=== PATIENT | female | born 1930 | race Caucasian/White ===

== ENCOUNTER 2019-07-28 11:21 | Inpatient (IN) | payer OTHER ==
--- NOTE | 2019-07-28 12:46 | PDOC ---
History of Present Illness - General Chief Complaint: Shortness of Breath Stated Complaint: Shortness of Breath Time Seen by Provider: 07/28/19 12:00 - History of Present Illness Initial Comments: 07/28/19 12:36 89 yo F PMH HTN, HLD, MOE multiple decades ago, depression, presenting with fevers and SOB. Symptoms began approximately 4 days ago with fevers/chills, unproductive cough, SOB with exertion but not at rest, generalized malaise, and profuse sweating. Patient lives with her daughter who has also had the same issues, albeit less intense. Patient has eaten only soups and drank fluids since onset of symptoms. 3 days ago, patient contacted their primary care doctor , who sent them amoxicillin 500mg TID. However, the patient reports not taking this consistently 2/2 thinking it was making her feel worse. Specifically denies recent travel, CP, abd pain, constipation/diarrhea, urinary changes, dark stools, or rectal bleeding. Endorses sick contact, unproductive cough, SOB with exertion, malaise. Past History - Past Medical History Allergies/Adverse Reactions: Allergies Allergy/AdvReac Type Severity Reaction Status Date / Time metoclopramide [From Reglan] Allergy Verified 07/28/19 11:40 prochlorperazine Allergy Verified 07/28/19 11:39 [From Compazine] Home Medications: Ambulatory Orders Amoxicillin - [Amoxicillin 500mg Capsule -] 500 mg PO TID 07/28/19 Aspirin [Children's Aspirin] 81 mg PO DAILY 07/28/19 Fenofibrate Nanocrystallized [Fenofibrate] 145 mg PO DAILY 07/28/19 Losartan Potassium 50 mg PO DAILY 07/28/19 Lovastatin 20 mg PO DAILY 07/28/19 Paroxetine HCl 40 mg PO DAILY 07/28/19 Zolpidem Tartrate 10 mg PO DAILY 07/28/19 - Psycho Social/Smoking Cessation Hx Smoking History: Never smoked Have you smoked in the past 12 months: No Information on smoking cessation initiated: No Hx Alcohol Use: No Drug/Substance Use Hx: No Review of Systems - Review of Systems Comments:: 07/28/19 12:46 GENERAL/CONSTITUTIONAL: Fevers and chills. Generalized malaise. HEAD, EYES, EARS, NOSE AND THROAT: No change in vision. No ear pain or discharge. No sore throat. CARDIOVASCULAR: No chest pain, however endorses SOB with exertion. RESPIRATORY: Endorses non-productive cough without wheezing or hemoptysis. GASTROINTESTINAL: No nausea, vomiting, diarrhea or constipation. No dark stools or rectal bleeding. GENITOURINARY: No dysuria, frequency, or change in urination. MUSCULOSKELETAL: No joint or muscle swelling or pain. No neck or back pain. SKIN: No rash NEUROLOGIC: No headache, vertigo, loss of consciousness, or change in strength/ sensation. ENDOCRINE: No increased thirst. No abnormal weight change. HEMATOLOGIC/LYMPHATIC: No anemia, easy bleeding, or history of blood clots. ALLERGIC/IMMUNOLOGIC: No hives or skin allergy *Physical Exam - Vital Signs Last Vital Signs Temp Pulse Resp BP Pulse Ox 99.5 F 109 H 16 159/82 96 07/28/19 11:25 07/28/19 11:25 07/28/19 11:25 07/28/19 11:25 07/28/19 11:25 - Physical Exam Comments: 07/28/19 12:53 Gen: well-developed, well-nourished, NAD Neuro: AAOX4, CN II-XII intact, FTN intact, EOMI, PERRLA, 5/5 strength, SILT HEENT: atraumatic, normocephalic, dry mucous membranes Neck: trachea midline, supple CV: tachycardic, regular rhythm, no murmurs, rubs, or gallops Pulm: diffuse coarse breath sounds, no wheezing Abd: soft, non-distended, non-tender, well-healed surgical scar MSK: full ROM, intact pulses Extr: no edema, no deformities Skin: warm, dry ED Treatment Course - LABORATORY CBC & Chemistry Diagram: 07/30/19 06:20 07/30/19 06:20 - RADIOLOGY Radiology Studies Ordered: Category Date Time Status CXRPORT [CHEST X-RAY PORTABLE*] [RAD] Stat Radiology 07/28/19 12:27 Ordered Medical Decision Making - Medical Decision Making 07/28/19 12:56 Concern for PNA vs new-onset CHF exacerbation. - CBC, CMP, BNP - EKG, trop, CXR - blood cultures - UA/UC - reassess 07/28/19 13:12 EKG sinus tachycardia at 110 bpm, QTc of 546, LBBB 07/28/19 13:26 CXR: patient appears to be s/p R ORIF of a humeral fracture. No apparent consolidation, effusion, or fluid overload. 07/28/19 14:37 ALT >1000, AST 3595. Will get repeat CMP, acute hepatitis panel, coags, lipase. Add-on acetaminophen <2. BNP elevated to 6499, patient appears to have new onset CHF. 07/28/19 16:36 INR 1.69, Lactate 4.1. Will give 500cc bolus of NS. 07/28/19 18:40 Abdomen US: Cholelithiasis is noted without sonographic evidence of acute cholecystitis. There is no definite biliary tract dilatation. Possible diffuse hepatic steatosis. A complex 2.6 x 3.4 x 3 cm splenic cystic structure is seen with several areas of peripheral calcification. 3 month follow-up sonography or CT is suggested to document stability. There is partial imaging of bilateral pleural effusions. These pleural effusions could not be appreciated on portable radiography performed 3 hours earlier - ? pulmonary vascular congestion.\ Will admit. Discharge - Discharge Information Problems reviewed: Yes Clinical Impression/Diagnosis: Transaminitis, New onset of congestive heart failure - Follow up/Referral - Patient Discharge Instructions - Post Discharge Activity
[2019-07-28 13:22] LABS: BASO % 0.6 % (0-2.0); EOS % 0.1 % (0-4.5); HEMATOCRIT 38.9 % (32.4-45.2); HEMOGLOBIN 12.5 GM/dL (10.7-15.3); LYMPH % 7.8 % (8-40); MCH 26.8 pg (25.7-33.7); MCHC 32.1 g/dl (32.0-36.0); MEAN CELL VOLUME 83.7 fl (80-96); MEAN PLT VOLUME 8.4 fl (7.5-11.1); MONO % 5.7 % (3.8-10.2); NEUT % 85.8 % (42.8-82.8); PLATELET COUNT 284 K/MM3 (134-434); RBC 4.65 M/mm3 (3.60-5.2); RDW 14.3 % (11.6-15.6); WHITE BLOOD COUNT 12.2 K/mm3 (4.0-10.0)
[2019-07-28 13:27] LABS: EPI CELLS 5.7 /HPF (0-5/HPF); HYALINE CASTS 6 /lpf (0-8); URINE APPEARANCE CLEAR; URINE BACTERIA 4.3 /hpf (NEGATIVE); URINE BILIRUBIN NEGATIVE (NEGATIVE); URINE COLOR DK YELLOW; URINE GLUCOSE (UA) 3+ (NEGATIVE); URINE KETONE TRACE (NEGATIVE); URINE LEUK ESTERASE NEGATIVE (NEGATIVE); URINE NITRITE NEGATIVE (NEGATIVE); URINE PROTEIN 2+ (NEGATIVE); URINE RBC 2 /hpf (0-4); URINE WBC 2 /hpf (0-5)
--- NOTE | 2019-07-28 13:43 | PDOC ---
Documentation entered by Gutierrez Larios SCRIBE, acting as scribe for Ramiro Escalona MD. Ramiro Escalona MD: This documentation has been prepared by the Ric mancilla Nirvannie, SCRIBE, under my direction and personally reviewed by me in its entirety. I confirm that the documentation accurately reflects all work, treatment, procedures, and medical decision making performed by me. Attending Attestation - Resident Resident Name: BucknerLibanbryon - ED Attending Attestation I have performed the following: I have examined & evaluated the patient, The case was reviewed & discussed with the resident, I agree w/resident's findings & plan, Exceptions are as noted - HPI HPI: 07/28/19 13:30 The patient is a 89 year old female, with a significant past medical history of HTN, HLD, and depression, who presents to the emergency department with 4 days of fever with chills, nonproductive cough with exertional shortness of breath. Patient was prescribed Amoxicillin 500mg TID by her PCP but notes no improvement. She denies any chest pain, orthopnea, PND, or palpitations. Primary Care Physician: Dr. Hooks - Physicial Exam PE: 07/28/19 13:30 GENERAL: Awake, alert, and fully oriented, in no acute distress. HEAD: No signs of trauma EYES: PERRLA, EOMI, sclera anicteric, conjunctiva clear ENT: Auricles normal inspection, hearing grossly normal, nares patent, oropharynx clear without exudates. Moist mucosa NECK: Nontender, no stepoffs, Normal ROM, supple, no lymphadenopathy, JVD, or masses LUNGS: Breath sounds equal, clear to auscultation bilaterally. No wheezes, and no crackles HEART: Regular rate and rhythm, normal S1 and S2, no murmurs, rubs or gallops ABDOMEN: Soft, nontender, normoactive bowel sounds. No guarding, no rebound. No masses EXTREMITIES: Normal range of motion, no edema. No clubbing or cyanosis. No cords, erythema, or tenderness NEUROLOGICAL: Cranial nerves II through XII intact. 5/5 strength and sensation in all extremities, Normal speech, normal gait, normal cerebellar function SKIN: Warm, Dry, normal turgor, no rashes or lesions noted. - Critical Care Time Total Critical Care Time: 60 Critical Care Statement: The care of this patient involved high complexity decision making to prevent further life threatening deterioration of the patient 's condition and/or to evaluate & treat vital organ system(s) failure or risk of failure. - Medical Decision Making 07/28/19 13:44 89 F with ARANA, cough, fevers. Possible URI vs flu vs PNA. Will evaluate for heart failure as well. - Labs - CXR 07/28/19 15:39 Labs notable for severe transaminitis Bili and alk phos wnl, no evidence of obstructive process Pt with benign abdomen. Acetaminophen level negative Will check hep panel Consult GI
[2019-07-28 13:58] LABS: ALBUMIN 3.6 g/dl (3.4-5.0); ALK PHOS 86 U/L (45-117); ANION GAP 12 MMOL/L (8-16); BILIRUBIN,TOTAL 1.1 mg/dL (0.2-1); BLOOD UREA NITROGEN 13.9 mg/dL (7-18); CALCIUM 8.9 mg/dL (8.5-10.1); CHLORIDE 99 mmol/L (98-107); CO2 21 mmol/L (21-32); CREATININE 1.3 mg/dL (0.55-1.3); GLUCOSE,RANDOM 284 mg/dL (74-106); MAGNESIUM 1.9 mg/dL (1.8-2.4); PHOSPHOROUS 2.1 mg/dL (2.5-4.9); POTASSIUM 4.2 mmol/L (3.5-5.1); SGPT/ALT > 1000 U/L (13-61); SODIUM 133 mmol/L (136-145); TOT PROT 7.1 g/dl (6.4-8.2)
[2019-07-28 14:07] LABS: SGOT/AST 3595 U/L (15-37)
--- NOTE | 2019-07-28 14:47 | EKG ---
Test Reason : Blood Pressure : / mmHG Vent. Rate : 110 BPM Atrial Rate : 110 BPM P-R Int : 142 ms QRS Dur : 138 ms QT Int : 404 ms P-R-T Axes : 064 035 190 degrees QTc Int : 546 ms SINUS TACHYCARDIA WITH PREMATURE ATRIAL COMPLEXES NON-SPECIFIC INTRA-VENTRICULAR CONDUCTION BLOCK CANNOT RULE OUT ANTERIOR INFARCT , AGE UNDETERMINED ABNORMAL ECG WHEN COMPARED WITH ECG OF 10-MAR-2007 18:20, PREMATURE ATRIAL COMPLEXES ARE NOW PRESENT NONSPECIFIC T WAVE ABNORMALITY NOW EVIDENT IN INFERIOR LEADS T WAVE INVERSION MORE EVIDENT IN LATERAL LEADS Confirmed by ARNALDO DESOUZA, JONEL ([id number]) on 07/28/2019 2:46:36 PM Referred By: Confirmed By:JONEL MCINTOSH MD
[2019-07-28 15:37] LABS: ALBUMIN 3.5 g/dl (3.4-5.0); BLOOD UREA NITROGEN 13.7 mg/dL (7-18); CALCIUM 8.8 mg/dL (8.5-10.1); CREATININE 1.2 mg/dL (0.55-1.3); POTASSIUM 4.8 mmol/L (3.5-5.1); TOT PROT 6.8 g/dl (6.4-8.2)
[2019-07-28 16:11] LABS: INR 1.69 (0.83-1.09)
[2019-07-28] MEDS ORDERED: SODIUM CHLORIDE 0.9% 500 ML INFUS.BAG IV ONE (16:35)
[2019-07-28] MEDS ORDERED: IBUPROFEN 600 MG TABLET (FP) PO ONE ×2 (17:05→17:07)
--- NOTE | 2019-07-28 17:15 | CON.GI ---
Consult Consult Specialty:: GI: For Dr. Madison who resumes care 07/29 Referred by:: Dr. Rohit Hooks Reason for Consultation:: Abnormal LFTs - History of Present Illness Chief Complaint: Weakness for 2 weeks and increasing ARANA History of Present Illness: 89F admitted through [facility] ER for evaluation of weakness and SOB. This has been occurring over the last 2 weeks and accompanied by increasing ARANA. She was given amoxicillin thursday (took 3-4 pills since that time) thinking that this may be infection related and may have taken two tylenol pills daily for 2-3 days for attempt at symptomatic relief this week. In the ED, transaminases noted to be markedly elevated. CXR revealed pleural effusions. She denied associated abdominal pain, diarrhea, change in dietary habits, sick contacts, headache, change in vision, fevers/chills, nausea/vomiting, food fear, travel. Her daughter explains that her mother has done some yard work with soil that had crushed up moth balls added to it. There has been no known animal exposures. 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 Place of : [facility] History of Recent Travel: No Home Medications - Allergies Allergies/Adverse Reactions: Allergies Allergy/AdvReac Type Severity Reaction Status Date / Time metoclopramide [From Reglan] Allergy Verified 07/28/19 11:40 prochlorperazine Allergy Verified 07/28/19 11:39 [From Compazine] - Home Medications Home Medications: Ambulatory Orders Amoxicillin - [Amoxicillin 500mg Capsule -] 500 mg PO TID 07/28/19 Aspirin [Children's Aspirin] 81 mg PO DAILY 07/28/19 Fenofibrate Nanocrystallized [Fenofibrate] 145 mg PO DAILY 07/28/19 Losartan Potassium 50 mg PO DAILY 07/28/19 Lovastatin 20 mg PO DAILY 07/28/19 Paroxetine HCl 40 mg PO DAILY 07/28/19 Zolpidem Tartrate 10 mg PO DAILY 07/28/19 Family Medical History Other Family History: Father: : 70's: Asthma. Mother: : 70's: "heart problems". 2 brothers: : unclear causes. 2 daughters: healthy. No family history of colorectal cancer or other GI malignancy. No family history of liver disease Review of Systems - Review of Systems Constitutional: reports: Weakness. denies: Chills, Unintentional Wgt. Loss Cardiovascular: denies: Chest Pain Respiratory: reports: SOB, SOB on Exertion Gastrointestinal: denies: Abdominal Pain, Bloating, Diarrhea, Melena, Rectal Bleeding Physical Exam-GI Vital Signs: Vital Signs Temperature 100.6 F H 07/28/19 17:00 Pulse Rate 98 H 07/28/19 17:00 Respiratory Rate 22 H 07/28/19 17:00 Blood Pressure 147/90 07/28/19 17:00 O2 Sat by Pulse Oximetry (%) 99 07/28/19 17:00 Constitutional: Yes: Calm Eyes: No: Sclera Icterus Cardiovascular: Yes: Regular Rate and Rhythm, Gallop, S3 Edema: LLE: Trace Neurological: Yes: Alert, Oriented. No: Asterixis Labs: CBC, BMP 07/28/19 12:50 07/28/19 14:20 INR, PTT INR 1.69 (0.83-1.09) H 07/28/19 14:32 Hepatic Panel Total Bilirubin 1.0 mg/dL (0.2-1) 07/28/19 14:20 AST 3495 U/L (15-37) H 07/28/19 14:20 ALT 2170 U/L (13-61) H 07/28/19 14:20 Alkaline Phosphatase 84 U/L (45-117) 07/28/19 14:20 Albumin 3.5 g/dl (3.4-5.0) 07/28/19 14:20 Laboratory Tests 07/28/19 14:32 INR 1.69 H Laboratory Tests 07/28/19 14:10 Acetaminophen <2.0 Imaging - Results Ultrasound: Report Reviewed (cholelithiasis, no biliary tract dilatation, complex splenic cystic structure with calcifications, normal flow hepatic veins and main portal vein.) Problem List - Problems (1) Hepatitis Assessment/Plan: Acute hepatitis with marked liver chemistries of unclear etiology. History not suggestive of significant tylenol ingestion and doppler study unrevealing ? DILI, ? Autoimmune process. Infectious etiology not excluded Acute hepatitis serologies are pending Hepatitis A/B panel ordered or AM MACARIO / ASMA ordered for AM as well as repeat coags and liver chemistries If continued rise in liver chemistries, development of encephalopathy, advise transfer to liver center for further evaluation and where liver biopsy can be performed with expeditious reading. MRI/MRCP ordered for further evaluation of biliary tract and splenic finding. ID Consult Code(s): K75.9 - INFLAMMATORY LIVER DISEASE, UNSPECIFIED
--- NOTE | 2019-07-28 21:48 | PN ---
Teaching Attending Note Name of Resident: Lorna Macedo ATTENDING PHYSICIAN STATEMENT I saw and evaluated the patient. I reviewed the resident's note and discussed the case with the resident. I agree with the resident's findings and plan as documented. SUBJECTIVE: 89yo woman with HTN, HLD, MOE multiple decades ago, depression, Poor historian complained of About 1 week of subjective fever and chills. In the emergency room patient was complaining of some increasing shortness of breath. Took about 3 tablets of amoxicillin since this past Thursday, was prescribed it by her PCP for possible URI. Transaminases noted to be elevated. Had fever in the ER. Denied any sick contacts or recent travels. OBJECTIVE: Last Vital Signs Temp Pulse Resp BP Pulse Ox 97.9 F 95 H 18 123/87 98 07/28/19 19:25 07/28/19 19:25 07/28/19 19:25 07/28/19 19:25 07/28/19 19:25 GENERAL: Well developed, well nourished. Awake and alert. No acute distress. HEENT: Normocephalic, atraumatic. PERRLA, EOMI. No conjunctival pallor. Sclera are non- icteric. Moist mucous membranes. NECK: Supple. Full ROM. No JVD. Carotid pulses 2+ and symmetric, without bruits. No thyromegaly. No lymphadenopathy. CARDIOVASCULAR: Regular rate and rhythm. No murmurs, rubs, or gallops. Distal pulses are 2+ and symmetric. PULMONARY: No evidence of respiratory distress. Lungs clear to auscultation bilaterally. No wheezing, rales or rhonchi. ABDOMINAL: Soft. Non-tender. Vertical scar noted Non-distended. No rebound or guarding. No organomegaly. Normoactive bowel sounds. MUSCULOSKELETAL Normal range of motion at all joints. No bony deformities or tenderness. No CVA tenderness. EXTREMITIES: No cyanosis. No clubbing. No edema. No calf tenderness. SKIN: Warm and dry. Normal capillary refill. No rashes. No jaundice. PSYCHIATRIC: Cooperative. Good eye contact. Appropriate mood and affect. Abnormal Lab Results 07/28/19 07/28/19 07/28/19 12:50 12:50 12:50 WBC 12.2 H Absolute Neuts (auto) 10.4 H Neutrophils % 85.8 H Lymphocytes % 7.8 L PT with INR INR Sodium 133 L Random Glucose 284 H Lactic Acid Phosphorus Total Bilirubin 1.1 H AST 3595 H ALT > 1000 H B-Natriuretic Peptide 6499.0 H Urine Protein Urine Glucose (UA) Urine Ketones 07/28/19 07/28/19 07/28/19 12:50 12:50 14:20 WBC Absolute Neuts (auto) Neutrophils % Lymphocytes % PT with INR INR Sodium 133 L Random Glucose 271 H Lactic Acid Phosphorus 2.1 L Total Bilirubin AST 3495 H ALT 2170 H B-Natriuretic Peptide Urine Protein 2+ H Urine Glucose (UA) 3+ H Urine Ketones Trace H 07/28/19 07/28/19 07/28/19 14:32 14:39 19:57 WBC Absolute Neuts (auto) Neutrophils % Lymphocytes % PT with INR 20.00 H INR 1.69 H Sodium Random Glucose Lactic Acid 4.1 H* Phosphorus 2.2 L Total Bilirubin AST ALT B-Natriuretic Peptide Urine Protein Urine Glucose (UA) Urine Ketones Imaging reviewed ASSESSMENT AND PLAN: #Transaminitis-May be drug-induced liver injury, possibly secondary to amoxicillin. Noted to have significant lactic acidosis of 4.1 on initial presentation. Admit to MedSurg IV fluid hydration Repeat lactate Avoid hepatotoxins Tylenol level EtOH level Urine toxicology Viral hepatitis panelshep A, hep B, C GI was consulted from the emergency room Trend liver function tests Avoid amoxicillin at this time as it may have induced drug induced liver injury #One-time fever of 100.6 Fahrenheit, tachycardia and high leukocytosis, Lactic acidosis, While on amoxicillin suggestive of underlying infectious process however no source of infection identified at this time. Suspect possible upper respiratory infection. Lactic acidosis has improved. Send blood cultures, urine culture Monitor off antibiotics at this time #DVT prophylaxisheparin subcutaneously
--- NOTE | 2019-07-28 22:30 | HP ---
CHIEF COMPLAINT: SOB and feverish PCP: Dr. Hooks HISTORY OF PRESENT ILLNESS: Ms. Jones is an 89 y/o lady with a past medical history of HTN and HLD who presents to the ED complaining of weak and "belaboured" breathing accompanied by diaphoresis, fever, generalized malaise and weakness. Per the patient's daughter at the bedside, her mother started feeling bad last Thursday when she was complaining of a sore throat, her symptoms continued over the weekend and she developed chills, fever, and decreased appetite. On Thursday they called her PCP, who prescribed Amoxicillin 500 TID which the pt began to take. The patient took 3-4 doses between Thursday and because she felt they were not helping much and making her feel worse. Today the patient's second daughter, who is a nurse, came down to see the patient and felt that she didn't look well. Although the patient had an upcomming appointment to see her PCP, they decided to bring her into the ED because they were concerned about her difficulty breathing and diaphoresis. On ROS the pt endorsed weakness, diaphoresis, chills, SOB, and feeling febrile. She denies CP, heart palpitations , nausea, vomiting, abdominal pain, diarrhea, constipations, numbness/ tingling in the arms/ legs or swelling in any of her extremities. Per the daughter her mother was not started on any new medications recently except for the amoxicilin and she had not been taking excessive amounts of tylenol or NSAIDS. The only new "exposure" the pt has had is to some crushed mothballs used in gardening around their house. Pt denies having sick contacts but the pt's daughter states she also had flu like sx around the time when her mother's sx began. ER course was notable for: (1) EKG sinus tachycardia at 110 bpm, QTc of 546, LBBB (2) ALT 2170, AST 3495, acetaminophen <2. BNP elevated to 6499, INR 1.69, Lactate 4.1 (3) given 500cc bolus of NS and GI, Dr. Gray, was consulted Recent Travel: denies PAST MEDICAL HISTORY: HTN and HLD PAST SURGICAL HISTORY: s/p R ORIF of a humeral fracture, total abdominal hysterectomy Social History: Smoking: denies Alcohol: on special occasions Drugs: denies Allergies metoclopramide [From Reglan] Allergy (Verified 07/28/19 11:40) prochlorperazine [From Compazine] Allergy (Verified 07/28/19 11:39) HOME MEDICATIONS: Home Medications Medication Instructions Recorded Amoxicillin - [Amoxicillin 500mg 500 mg PO TID 07/28/19 Capsule -] Aspirin [Children's Aspirin] 81 mg PO DAILY 07/28/19 Fenofibrate Nanocrystallized 145 mg PO DAILY 07/28/19 [Fenofibrate] Losartan Potassium 50 mg PO DAILY 07/28/19 Lovastatin 20 mg PO DAILY 07/28/19 Paroxetine HCl 40 mg PO DAILY 07/28/19 Zolpidem Tartrate 10 mg PO DAILY 07/28/19 REVIEW OF SYSTEMS CONSTITUTIONAL: fever, chills, diaphoresis, generalized weakness, malaise, loss of appetite, Absent: weight change HEENT: throat pain, Absent: rhinorrhea, nasal congestion, throat swelling, difficulty swallowing, mouth swelling, ear pain, eye pain, visual changes CARDIOVASCULAR: Absent: chest pain, syncope, palpitations, irregular heart rate, lightheadedness , peripheral edema RESPIRATORY: shortness of breath, dyspnea with exertion (chronic, gets some dyspnea going up stairs) Absent: cough, orthopnea, wheezing, stridor, hemoptysis GASTROINTESTINAL: Absent: abdominal pain, abdominal distension, nausea, vomiting, diarrhea, constipation, melena, hematochezia GENITOURINARY: Absent: dysuria, frequency, urgency, hesitancy, hematuria, flank pain, genital pain MUSCULOSKELETAL: Absent: myalgia, arthralgia, joint swelling, back pain, neck pain SKIN: Absent: rash, itching, pallor HEMATOLOGIC/IMMUNOLOGIC: Absent: easy bleeding, easy bruising, lymphadenopathy, frequent infections ENDOCRINE: Absent: unexplained weight gain, unexplained weight loss, heat intolerance, cold intolerance NEUROLOGIC: Absent: headache, focal weakness or paresthesias, dizziness, unsteady gait, seizure, mental status changes, bladder or bowel incontinence PSYCHIATRIC: Absent: anxiety, depression, suicidal or homicidal ideation, hallucinations. PHYSICAL EXAMINATION Vital Signs - 24 hr 07/28/19 07/28/19 07/28/19 11:25 11:45 13:00 Temperature 99.5 F Pulse Rate 109 H Pulse Rate [ 109 H Right Radial] Respiratory 16 20 Rate Blood Pressure 159/82 Blood Pressure 151/85 [Left Arm] O2 Sat by Pulse 96 96 96 Oximetry (%) 07/28/19 07/28/19 07/28/19 17:00 18:54 19:25 Temperature 100.6 F H 98.7 F 97.9 F Pulse Rate Pulse Rate [ 98 H 105 H 95 H Right Radial] Respiratory 22 H 20 18 Rate Blood Pressure Blood Pressure 147/90 144/75 123/87 [Left Arm] O2 Sat by Pulse 99 100 98 Oximetry (%) 07/28/19 21:42 Temperature 97.9 F Pulse Rate 96 H Pulse Rate [ Right Radial] Respiratory 18 Rate Blood Pressure 146/85 Blood Pressure [Left Arm] O2 Sat by Pulse 97 Oximetry (%) GENERAL: Awake, alert, and fully oriented, in no acute distress. Diaphoretic and laying in bed without sheets/ socks or anything covering her because she states she feels hot though she is afebrile and her skin feels cool and clammy. HEAD: Normal with no signs of trauma. EYES: Pupils equal, round and reactive to light, extraocular movements intact, sclera anicteric, conjunctiva clear. No lid lag. EARS, NOSE, THROAT: Ears normal, nares patent, oropharynx clear without exudates. Dry mucous membranes. NECK: Normal range of motion, supple without lymphadenopathy, mild elevation in JVD. LUNGS: Breath sounds equal, clear to auscultation bilaterally. No wheezes, and no crackles. No accessory muscle use. HEART: Tachycardic, regular rhythm, S1 and S2 no murmur, rub or gallop noted. ABDOMEN: Soft, nontender, not distended, vertical scar noted, normoactive bowel sounds, no guarding, no rebound, no masses. No hepatomegaly or splenomegaly. MUSCULOSKELETAL: Normal range of motion at all joints. No bony deformities or tenderness. No CVA tenderness. UPPER EXTREMITIES: 2+ pulses, warm, well-perfused. No cyanosis. No clubbing. No peripheral edema. LOWER EXTREMITIES: 2+ pulses, warm, well-perfused. No calf tenderness. Trace peripheral edema. NEUROLOGICAL: Cranial nerves II-XII intact. Normal speech. PSYCHIATRIC: Cooperative. Good eye contact. Appropriate mood and affect. SKIN: Cool, clammy, normal turgor, no rashes or lesions noted, normal capillary refill. Laboratory Results - last 24 hr 07/28/19 07/28/19 07/28/19 12:50 12:50 12:50 WBC 12.2 H RBC 4.65 Hgb 12.5 Hct 38.9 MCV 83.7 MCH 26.8 MCHC 32.1 RDW 14.3 Plt Count 284 MPV 8.4 Absolute Neuts (auto) 10.4 H Neutrophils % 85.8 H Lymphocytes % 7.8 L Monocytes % 5.7 Eosinophils % 0.1 Basophils % 0.6 Nucleated RBC % 0 PT with INR INR PTT (Actin FS) Sodium 133 L Potassium 4.2 Chloride 99 Carbon Dioxide 21 Anion Gap 12 BUN 13.9 Creatinine 1.3 Est GFR (CKD-EPI)AfAm 42.42 Est GFR (CKD-EPI)NonAf 36.60 Random Glucose 284 H Lactic Acid Calcium 8.9 Phosphorus Magnesium Total Bilirubin 1.1 H AST 3595 H ALT > 1000 H Alkaline Phosphatase 86 Creatine Kinase Creatine Kinase Index CK-MB (CK-2) Troponin I B-Natriuretic Peptide 6499.0 H Total Protein 7.1 Albumin 3.6 Lipase Urine Color Urine Appearance Urine pH Ur Specific [place] Urine Protein Urine Glucose (UA) Urine Ketones Urine Blood Urine Nitrite Urine Bilirubin Urine Urobilinogen Ur Leukocyte Esterase Urine WBC (Auto) Urine RBC (Auto) Urine Casts (Auto) U Epithel Cells (Auto) Urine Bacteria (Auto) Acetaminophen 07/28/19 07/28/19 07/28/19 12:50 12:50 14:10 WBC RBC Hgb Hct MCV MCH MCHC RDW Plt Count MPV Absolute Neuts (auto) Neutrophils % Lymphocytes % Monocytes % Eosinophils % Basophils % Nucleated RBC % PT with INR INR PTT (Actin FS) Sodium Potassium Chloride Carbon Dioxide Anion Gap BUN Creatinine Est GFR (CKD-EPI)AfAm Est GFR (CKD-EPI)NonAf Random Glucose Lactic Acid Calcium Phosphorus 2.1 L Magnesium 1.9 Total Bilirubin AST ALT Alkaline Phosphatase Creatine Kinase Creatine Kinase Index CK-MB (CK-2) Troponin I 0.04 B-Natriuretic Peptide Total Protein Albumin Lipase Urine Color Dk yellow Urine Appearance Clear Urine pH 5.0 Ur Specific [place] 1.026 Urine Protein 2+ H Urine Glucose (UA) 3+ H Urine Ketones Trace H Urine Blood Negative Urine Nitrite Negative Urine Bilirubin Negative Urine Urobilinogen 1.0 Ur Leukocyte Esterase Negative Urine WBC (Auto) 2 Urine RBC (Auto) 2 Urine Casts (Auto) 6 U Epithel Cells (Auto) 5.7 Urine Bacteria (Auto) 4.3 Acetaminophen <2.0 07/28/19 07/28/19 07/28/19 14:20 14:32 14:39 WBC RBC Hgb Hct MCV MCH MCHC RDW Plt Count MPV Absolute Neuts (auto) Neutrophils % Lymphocytes % Monocytes % Eosinophils % Basophils % Nucleated RBC % PT with INR 20.00 H INR 1.69 H PTT (Actin FS) 27.2 Sodium 133 L Potassium 4.8 Chloride 100 Carbon Dioxide 24 Anion Gap 9 BUN 13.7 Creatinine 1.2 Est GFR (CKD-EPI)AfAm 46.73 Est GFR (CKD-EPI)NonAf 40.32 Random Glucose 271 H Lactic Acid Calcium 8.8 Phosphorus Magnesium Total Bilirubin 1.0 AST 3495 H ALT 2170 H Alkaline Phosphatase 84 Creatine Kinase 158 Creatine Kinase Index 1.5 CK-MB (CK-2) 2.5 Troponin I 0.04 B-Natriuretic Peptide Total Protein 6.8 Albumin 3.5 Lipase 73 Urine Color Urine Appearance Urine pH Ur Specific [place] Urine Protein Urine Glucose (UA) Urine Ketones Urine Blood Urine Nitrite Urine Bilirubin Urine Urobilinogen Ur Leukocyte Esterase Urine WBC (Auto) Urine RBC (Auto) Urine Casts (Auto) U Epithel Cells (Auto) Urine Bacteria (Auto) Acetaminophen 07/28/19 07/28/19 07/28/19 14:39 19:57 21:35 WBC RBC Hgb Hct MCV MCH MCHC RDW Plt Count MPV Absolute Neuts (auto) Neutrophils % Lymphocytes % Monocytes % Eosinophils % Basophils % Nucleated RBC % PT with INR INR PTT (Actin FS) Sodium Potassium Chloride Carbon Dioxide Anion Gap BUN Creatinine Est GFR (CKD-EPI)AfAm Est GFR (CKD-EPI)NonAf Random Glucose Lactic Acid 4.1 H* 4.2 H* Calcium Phosphorus 2.2 L Magnesium Total Bilirubin AST ALT Alkaline Phosphatase Creatine Kinase Creatine Kinase Index CK-MB (CK-2) Troponin I B-Natriuretic Peptide Total Protein Albumin Lipase Urine Color Urine Appearance Urine pH Ur Specific [place] Urine Protein Urine Glucose (UA) Urine Ketones Urine Blood Urine Nitrite Urine Bilirubin Urine Urobilinogen Ur Leukocyte Esterase Urine WBC (Auto) Urine RBC (Auto) Urine Casts (Auto) U Epithel Cells (Auto) Urine Bacteria (Auto) Acetaminophen Abdomen US: Cholelithiasis is noted without sonographic evidence of acute cholecystitis. There is no definite biliary tract dilatation. Possible diffuse hepatic steatosis. A complex 2.6 x 3.4 x 3 cm splenic cystic structure is seen with several areas of peripheral calcification. 3 month follow-up sonography or CT is suggested to document stability. There is partial imaging of bilateral pleural effusions. These pleural effusions could not be appreciated on portable radiography performed 3 hours earlier - ? pulmonary vascular congestion. ASSESSMENT/PLAN: Ms. Jones is an 89 y/o lady with a past medical history of HTN and HLD who presents to the ED complaining of weak and "belaboured" breathing accompanied by diaphoresis, fever, generalized malaise and weakness. # Transaminitis- Per pt she did not take much tylenol or NSAIDs, and the only new medication she has taken was the amoxicillin. On exam the pt was found to have transaminitis without grossly abnormal hepatobiliary imaging. It's possibly her transaminitis is 2/2 drug-induced liver injury, possibly 2/2 amoxicillin as in all major studies on DILI antibiotics are the most common type of drugs that are reported. Statins are also known to be implicated in cases of DILI, given the patient's history and exam findings this is a plausible explination but other causes of acute liver injury should be ruled out including viral hepatitis or autoimmune disorders. Noted to have significant lactic acidosis of 4.1 on initial presentation. - gentle fluid hydration with IVNS@75cc - Trend lactate - Avoid hepatotoxins - EtOH level - Utox - viral hepatitis panel (Hep A, B, C) - ID consulted, Dr. Salcedo, appreciate recommendations - ED consulted GI, Dr. Gray, appreciate recommendations - MRI/MRCP ordered for further evaluation of biliary tract and splenic finding. - MACARIO / ASMA ordered - f/i repeat coags and liver chemistries - If continued rise in liver chemistries, development of encephalopathy, advise transfer to liver center for further evaluation and where liver biopsy can be performed with expeditious reading. - Trend LFTs - Avoid amoxicillin as this may have precipitated a DILI - Echo pending to assess cardiac fn # Fever - Febrile to 100.6 once, pt is also tachycardic and has leukocytosis and lactic acidosis which could be suggestive of infectious process, however source is yet to be identified. - blood and urine cx pending - LA 4.1> 4.2, continue to trend lactate - monitoring off abx at this time # FEN - IV NS @ 75cc/h - replete PRN - NPO for now pending improvement in pt's clinical status # PPX - DVT ppx- Heparin 5000u TID # Dispo- [facility], full code Visit type - Emergency Visit Emergency Visit: Yes ED Registration Date: 07/28/19 Care time: The patient presented to the Emergency Department on the above date and was hospitalized for further evaluation of their emergent condition. - New Patient This patient is new to me today: Yes Date on this admission: 07/29/19 - Critical Care Critical Care patient: No ATTENDING PHYSICIAN STATEMENT I saw and evaluated the patient. I reviewed the resident's note and discussed the case with the resident. I agree with the resident's findings and plan as documented. SUBJECTIVE: OBJECTIVE: ASSESSMENT AND PLAN:
[2019-07-28] MEDS ORDERED: SODIUM CHLORIDE 500 ML IV STA (23:07)
[2019-07-28] MEDS ORDERED: SODIUM CHLORIDE 1,000 ML IV SCH ×2 (23:15)
[2019-07-29] MEDS: HEPARIN NA (PORCINE) 5,000 UNITS/ML 1ML VIAL SQ SCH ×3 (06:04→22:17)
[2019-07-29 07:37] LABS: BASO % 0.2 % (0-2.0); EOS % 0.8 % (0-4.5); HEMATOCRIT 38.3 % (32.4-45.2); HEMOGLOBIN 12.2 GM/dL (10.7-15.3); LYMPH % 9.4 % (8-40); MCH 26.8 pg (25.7-33.7); MCHC 31.8 g/dl (32.0-36.0); MEAN CELL VOLUME 84.3 fl (80-96); MEAN PLT VOLUME 8.4 fl (7.5-11.1); MONO % 7.4 % (3.8-10.2); NEUT % 82.2 % (42.8-82.8); PLATELET COUNT 240 K/MM3 (134-434); RBC 4.54 M/mm3 (3.60-5.2); RDW 14.2 % (11.6-15.6); WHITE BLOOD COUNT 10.6 K/mm3 (4.0-10.0)
[2019-07-29 08:03] LABS: INR 1.71 (0.83-1.09); PROTHROMBIN TIME (PATIENT) 20.3 SEC (9.7-13.0)
[2019-07-29 08:17] LABS: ALBUMIN 3.4 g/dl (3.4-5.0); BILIRUBIN,TOTAL 1.6 mg/dL (0.2-1); BLOOD UREA NITROGEN 20.9 mg/dL (7-18); CALCIUM 8.6 mg/dL (8.5-10.1); CREATININE 1.5 mg/dL (0.55-1.3); MAGNESIUM 1.8 mg/dL (1.8-2.4); POTASSIUM 4.2 mmol/L (3.5-5.1); TOT PROT 6.6 g/dl (6.4-8.2)
--- NOTE | 2019-07-29 10:48 | ECHO ---
Name: YONY JAMISON Exam:Adult Echocardiogram Study Date: 07/29/2019 09:14 AM Age: 89 yrs Reason For Study: evaluate heart function Height: 63 in Weight: 180 lb BSA: 1.8 m2 MMode/2D Measurements & Calculations LVOT diam: 2.0 cm LVLd ap4: 6.6 cm EDV(MOD-sp4): 68.0 ml LVLs ap4: 6.2 cm ESV(MOD-sp4): 41.0 ml SV(MOD-sp4): 27.0 ml LAV (MOD-bp): 44.0 ml Doppler Measurements & Calculations Ao V2 max: 103.2 cm/sec LV V1 max P.8 mmHg Ao max P.3 mmHg LV V1 max: 83.4 cm/sec ALLYN(V,D): 2.5 cm2 MR max kendrick: 540.0 cm/sec TR max kendrick: 321.9 cm/sec MR max P.6 mmHg TR max P.9 mmHg PA V2 max: 89.9 cm/sec Med Peak E' Kendrick: 3.7 cm/sec PA max P.3 mmHg Lat Peak E' Kendrick: 8.0 cm/sec Left Ventricle The left ventricle is mildly dilated. Left ventricular systolic function is severely reduced. Ejectio n Fraction = 20-25%. There is severe global hypokinesis of the left ventricle. Paradoxical septal motio n. Right Ventricle The right ventricle is grossly normal size. The right ventricular systolic function is grossly normal . Atria The left atrium is mildly dilated. Right atrial size is normal. Mitral Valve The mitral valve is normal in structure and function. There is no mitral valve stenosis. There is mod erate mitral regurgitation. Tricuspid Valve The tricuspid valve is normal in structure and function. There is severe tricuspid regurgitation. Rig ht ventricular systolic pressure is elevated at 40-50mmHg. Aortic Valve There is mild aortic sclerosis.;. No hemodynamically significant valvular aortic stenosis. No aortic regurgitation is present. Pulmonic Valve The pulmonic valve is not well seen, but is grossly normal. There is no pulmonic valvular stenosis. Great Vessels The aortic root is normal size. Pericardium/Pleura There is no pericardial effusion. Interpretation Summary There is severe global hypokinesis of the left ventricle. Paradoxical septal motion. Left ventricular systolic function is severely reduced. Ejection Fraction = 20-25%. The left atrium is mildly dilated. There is moderate mitral regurgitation. There is severe tricuspid regurgitation. Right ventricular systolic pressure is elevated at 40-50mmHg. MD Patterson *Tello 07/29/2019 10:47 AM
--- NOTE | 2019-07-29 11:46 | PN ---
Teaching Attending Note Name of Resident: Odalis Mcmahon ATTENDING PHYSICIAN STATEMENT I saw and evaluated the patient. I reviewed the resident's note and discussed the case with the resident. I agree with the resident's findings and plan as documented. SUBJECTIVE: patient seen and examined feels fatigued increased SOB with exertion has been progressing over the last several months started amox this week for uri symptoms has not seen PMD for over one year no travel no pets denies new meds except amox no herbals OBJECTIVE: Vital Signs Period Temp Pulse Resp BP Sys/Daniels Pulse Ox Last 24 Hr 97.3 F-100.6 F 88-105 17-22 123-151/75-90 97-100 cor-rrr lungs bibasilar rales abd soft,nt ext no edema CBC, BMP 07/29/19 07:00 07/29/19 07:00 Laboratory Tests 07/29/19 07:00 Total Bilirubin 1.6 H Direct Bilirubin 1.0 H AST > 2002 H ALT 2175 H Alkaline Phosphatase 90 Microbiology 07/28/19 12:50 Blood - Peripheral Venous Blood Culture - Preliminary NO GROWTH OBTAINED AFTER 24 HOURS, INCUBATION TO CONTINUE FOR 4 DAYS. 07/28/19 12:50 Blood - Peripheral Venous Blood Culture - Preliminary NO GROWTH OBTAINED AFTER 24 HOURS, INCUBATION TO CONTINUE FOR 4 DAYS. 07/28/19 12:50 Urine - Urine Clean Catch Urine Culture - Final Lactose Fermenting Neg Bacilli ASSESSMENT AND PLAN: hepatitis-?viral ?meds, ?cardiac-echo results noted , ef 20-25%- ?heart failure for MRCP agree with hepatitis/cmv/ebv serology GI f/u cardiology evaluation Problem List - Problems (1) Hepatitis Code(s): K75.9 - INFLAMMATORY LIVER DISEASE, UNSPECIFIED (2) New onset of congestive heart failure Code(s): I50.9 - HEART FAILURE, UNSPECIFIED
--- NOTE | 2019-07-29 12:16 | PN ---
Teaching Attending Note Name of Resident: Krystyna Vallejo ATTENDING PHYSICIAN STATEMENT I saw and evaluated the patient. I reviewed the resident's note and discussed the case with the resident. I agree with the resident's findings and plan as documented. SUBJECTIVE: She feels better, has no pain or SOB . has no cough . no CP . denies any diarrhea. she does not remember much about last week. family needs to be contacted but per chart her sx started before she took amoxi. she reports ARANA . she denies any diarrhea, ro urinary sx OBJECTIVE: NAD , awake, alert, cooperative HEENT: dry MM. + JVD . No facial droop, no thrush. round equal pupils. CV: RRR, Lungs: CTAB Abd: soft, NT, ND, NL BS ,liver is not palpable and not percussable Ext: No edema , no erythema. no fungal infection in feet Skin : dry, No axillary sweating ASSESSMENT AND PLAN: 89 y/o lady with h/o HTN, HLP, Hysterectomy who presented with fever , chills x 1 -2 weeks and was found to have transaminitis . 1- Transaminitis /liver failure: Unclear etiology. Sx started before her amoxicillin exposure , so doubt that as a cause. She is on statin and fibrate but doubt that acute sx and elevation in LFTS is solely due to that. In DDX: autoimmune hepatitis, viral hepatitis. can't r/o sepsis from other infectious source as a cause of transaminitis ( less likely). ? transient hypotension at home, but no convincing history. No protal vein thrombosis on US . She looks volume depleted on exam, I doubt that she is in heart failure causing liver congestion Obstruction was not r/o completely especially with elevation in direct bili and presence of gall stones. but doubt it as Transaminitis is improving. - MRCP pending - follwo viral hepatitie panel - follow MACARIO, anti-smooth muscle Abs. - AMA needs authorization - monitor INR. - Hold statin and fibrate 2- SIRS: no source of infection can be identified. fever could be part of the liver process. - Hold off abx now - ID Recs pending - follow blood cx - Urien cx with low colony count of GNR. 3- CHELSEA: she looks volume depleted on exam.( no axillary sweating, dry skin and MM, no crackles on lung exam) - start IVF . - monitor kidney function. -US with no hydro - Hold losartan 4- ARANA: not clear of cause. but clinically she does not seem to be in heart failure. - Echo pending - monitor on IVF. 5- H/o HTN: hold losratan due to CHELSEA. monitor BP 6- DVT PX : heparin SQ. INR is increasing . monitor that
--- NOTE | 2019-07-29 13:12 | CON.ID ---
Consult Reason for Consultation:: hepatitis - History of Present Illness Chief Complaint: shortness of breath History of Present Illness: Ms. Fagan is an 89y/o female with HTN and HLD who presents with progressive shortness of breath and fatigue. Per daughter, the patient has become increasingly dyspneic on exertion over the last several months and especially in the last week. The patient also reports she has not been gardening over the last year because she has "not felt like it." The daughter reported pt had a sore throat and subjective fevers 8 days ago, and pt was called in amoxicillin 5 days ago by PMD and took ~4 doses before stopped because she was feeling worse. Pt denies cough, wheezing, chest pain, abdominal pain, n/v/d, dysuria, myalgias, fever, chills, or rash. Pt's daughter reports she was sweeping dirt 2 weeks ago while outside and is concerned about exposure to soil. There has been no recent travel. Pt lives in a house with another daughter who had some URI symptoms last week; no other sick contacts. She received the flu shot this season. Pt reports not having seen PMD in a year and a half and receives HTN and HLD medications by refills. She also takes OTC MV and Calcium. There has been no recent changes to medications. Pt's daughter reports a change in mental status since she last saw her in May. She is not as "sharp" as she was previously and is "vague" at times while speaking. She ambulates without assistance. - History Source History Provided By: Patient, Family Member - Past Medical History Cardio/Vascular: Yes: HTN, Hyperlipdemia ...: No - Past Surgical History Past Surgical History: Yes: Hysterectomy (MOE/BSO) - Alcohol/Substance Use Hx Alcohol Use: No History of Substance Use: reports: None - Smoking History Smoking history: Never smoked Have you smoked in the past 12 months: No - Social History Usual Living Arrangement: With Child ADL: Independent Occupation: Retired Tilesetter History of Recent Travel: No Home Medications - Allergies Allergies/Adverse Reactions: Allergies Allergy/AdvReac Type Severity Reaction Status Date / Time metoclopramide [From Reglan] Allergy Verified 07/28/19 11:40 prochlorperazine Allergy Verified 07/28/19 11:39 [From Compazine] - Home Medications Home Medications: Ambulatory Orders Amoxicillin - [Amoxicillin 500mg Capsule -] 500 mg PO TID 07/28/19 Aspirin [Children's Aspirin] 81 mg PO DAILY 07/28/19 Fenofibrate Nanocrystallized [Fenofibrate] 145 mg PO DAILY 07/28/19 Losartan Potassium 50 mg PO DAILY 07/28/19 Lovastatin 20 mg PO DAILY 07/28/19 Paroxetine HCl 40 mg PO DAILY 07/28/19 Zolpidem Tartrate 10 mg PO DAILY 07/28/19 Review of Systems - Review of Systems Constitutional: reports: Chills, Fever HENT: denies: Nasal Congestion, Throat Pain Cardiovascular: reports: Shortness of Breath. denies: Chest Pain Respiratory: denies: Cough Gastrointestinal: denies: Abdominal Pain, Constipation, Diarrhea, Nausea, Vomiting Genitourinary: denies: Dysuria Musculoskeletal: denies: Muscle Pain Physical Exam Vital Signs: Vital Signs Temperature 97.9 F 07/29/19 10:00 Pulse Rate 92 H 07/29/19 10:00 Respiratory Rate 18 07/29/19 10:00 Blood Pressure 151/84 07/29/19 10:00 O2 Sat by Pulse Oximetry (%) 99 07/29/19 09:00 Constitutional: Yes: Well Nourished, No Distress Eyes: Yes: Conjunctiva Clear, EOM Intact. No: Sclera Icterus HENT: Yes: Atraumatic, Normocephalic Neck: Yes: Supple, Trachea Midline. No: Lymphadenopathy Cardiovascular: Yes: Regular Rate and Rhythm, Gallop Respiratory: Yes: Other (crackles at bases bilaterally). No: Wheezes Gastrointestinal: Yes: Normal Bowel Sounds, Soft. No: Tenderness Edema: No Integumentary: Yes: Other (healed hysterectomy scar on lower abdomen) Neurological: Yes: Alert, Oriented. No: Asterixis Labs: CBC, BMP 07/29/19 07:00 07/29/19 07:00 Imaging - Results Chest X-ray: Report Reviewed (no evidence of acute pulmonary disease), Image Reviewed Ultrasound: Report Reviewed (cholelithiasis with no evidence of acute cholecystitis, possible diffuse hepatic steatosis, splenic cyst ~3cm x 3cm x 3cm with some peripheral calcification, possible new pleural effusions bilaterally at bases) EKG: Report Reviewed, Image Reviewed (HR 110, PACs, QTc 546, non-specific T wave abnormalities inferior leads and T wave inversion more prominent in lateral leads) Assessment/Plan Ms. Fagan is an 89y/o female with HTN and HLD who presents with progressive shortness of breath and fatigue. Per daughter, the patient has become increasingly dyspneic on exertion over the last several months and especially in the last week. Pt was initially febrile and had leukocytosis but fever resolved and white count is borderline normal. Pt was found to have severe transaminitis and lactic acidosis. Echo showed LVH with EF 20-25% and RV pressure 40-50 with severe TR. #r/o hepatitis EBV profile CMV hepatitis panel pending blood cx pending- prelim negative urine cx- no significant findings
[2019-07-29 13:16] LABS: COCAINE, UR NEGATIVE ng/ml (CUTOFF=300); METHADONE, UR NEGATIVE ng/ml (CUTOFF=300); OPIATES, URI NEGATIVE ng/ml (CUTOFF=300); PHENCYCLIDINE,URINE NEGATIVE ng/ml (CUTOFF=25); URINE AMPHETAMINES NEGATIVE ng/ml (CUTOFF=500); URINE BARBITURATES NEGATIVE ng/ml (CUTOFF=200); URINE BENZODIAZEPINES NEGATIVE ng/ml (CUTOFF=200)
--- NOTE | 2019-07-29 14:25 | PROC ---
Procedure Note Procedure: After several failed attempts by nursing, surgery was asked to place IV in patient who is has difficult access. Under sterile prep and technique, a 24 gauge IV was placed at the dorsum of the patients right foot. The line aspirated and flushed easily. The line was well secured. The patient tolerated the procedure.
--- NOTE | 2019-07-29 15:07 | PN ---
Physical Exam: SUBJECTIVE: Patient seen and examined in the morning. No acute events overnight. Patient feels much better now. No complaints of chest pain, shortness of breath, abdominal pain, nausea, vomiting, diarrhea, fever, chills. OBJECTIVE: Vital Signs Period Temp Pulse Resp BP Sys/Daniels Pulse Ox Last 24 Hr 97.3 F-100.6 F 88-105 17-22 123-151/75-90 97-100 GENERAL: The patient is awake, alert, and fully oriented, in no acute distress. HEAD: Normal with no signs of trauma. EYES: PERRL, extraocular movements intact, sclera anicteric, conjunctiva clear. No ptosis. NECK: Trachea midline, mild JVD LUNGS: Breath sounds equal, clear to auscultation bilaterally, no wheezes, no crackles, n HEART: Regular rate and rhythm, S1, S2 without murmur, rub or gallop. ABDOMEN: Soft, nontender, nondistended, normoactive bowel sounds, no guarding, no rebound. EXTREMITIES: 2+ pulses, warm, well-perfused, no edema. NEUROLOGICAL: Cranial nerves II through XII grossly intact. Normal speech. Laboratory Results - last 24 hr 07/28/19 07/28/19 07/28/19 14:10 14:20 14:32 WBC RBC Hgb Hct MCV MCH MCHC RDW Plt Count MPV Absolute Neuts (auto) Neutrophils % Lymphocytes % Monocytes % Eosinophils % Basophils % Nucleated RBC % PT with INR 20.00 H INR 1.69 H PTT (Actin FS) Sodium 133 L Potassium 4.8 Chloride 100 Carbon Dioxide 24 Anion Gap 9 BUN 13.7 Creatinine 1.2 Est GFR (CKD-EPI)AfAm 46.73 Est GFR (CKD-EPI)NonAf 40.32 Random Glucose 271 H Lactic Acid Calcium 8.8 Phosphorus Magnesium Total Bilirubin 1.0 Direct Bilirubin AST 3495 H ALT 2170 H Alkaline Phosphatase 84 LD Total Creatine Kinase 158 Creatine Kinase Index 1.5 CK-MB (CK-2) 2.5 Troponin I 0.04 Total Protein 6.8 Albumin 3.5 Lipase 73 Opiates Screen Methadone Screen Acetaminophen <2.0 Barbiturate Screen Phencyclidine Screen Ur Amphetamines Screen MDMA (Ecstasy) Screen Benzodiazepines Screen Cocaine Screen U Marijuana (THC) Screen Alcohol, Quantitative 07/28/19 07/28/19 07/28/19 14:39 14:39 19:57 WBC RBC Hgb Hct MCV MCH MCHC RDW Plt Count MPV Absolute Neuts (auto) Neutrophils % Lymphocytes % Monocytes % Eosinophils % Basophils % Nucleated RBC % PT with INR INR PTT (Actin FS) 27.2 Sodium Potassium Chloride Carbon Dioxide Anion Gap BUN Creatinine Est GFR (CKD-EPI)AfAm Est GFR (CKD-EPI)NonAf Random Glucose Lactic Acid 4.1 H* Calcium Phosphorus 2.2 L Magnesium Total Bilirubin Direct Bilirubin AST ALT Alkaline Phosphatase LD Total Creatine Kinase Creatine Kinase Index CK-MB (CK-2) Troponin I Total Protein Albumin Lipase Opiates Screen Methadone Screen Acetaminophen Barbiturate Screen Phencyclidine Screen Ur Amphetamines Screen MDMA (Ecstasy) Screen Benzodiazepines Screen Cocaine Screen U Marijuana (THC) Screen Alcohol, Quantitative 07/28/19 07/29/19 07/29/19 21:35 07:00 07:00 WBC 10.6 H RBC 4.54 Hgb 12.2 Hct 38.3 MCV 84.3 MCH 26.8 MCHC 31.8 L RDW 14.2 Plt Count 240 MPV 8.4 Absolute Neuts (auto) 8.7 H Neutrophils % 82.2 Lymphocytes % 9.4 D Monocytes % 7.4 Eosinophils % 0.8 D Basophils % 0.2 Nucleated RBC % 0 PT with INR INR PTT (Actin FS) Sodium 137 Potassium 4.2 Chloride 103 Carbon Dioxide 23 Anion Gap 11 BUN 20.9 H Creatinine 1.5 H Est GFR (CKD-EPI)AfAm 35.68 Est GFR (CKD-EPI)NonAf 30.78 Random Glucose 176 H Lactic Acid 4.2 H* Calcium 8.6 Phosphorus Magnesium 1.8 Total Bilirubin 1.6 H Direct Bilirubin 1.0 H AST > 2002 H ALT 2175 H Alkaline Phosphatase 90 LD Total 1264 H Creatine Kinase Creatine Kinase Index CK-MB (CK-2) Troponin I Total Protein 6.6 Albumin 3.4 Lipase Opiates Screen Methadone Screen Acetaminophen Barbiturate Screen Phencyclidine Screen Ur Amphetamines Screen MDMA (Ecstasy) Screen Benzodiazepines Screen Cocaine Screen U Marijuana (THC) Screen Alcohol, Quantitative 07/29/19 07/29/19 07/29/19 07:00 07:00 07:00 WBC RBC Hgb Hct MCV MCH MCHC RDW Plt Count MPV Absolute Neuts (auto) Neutrophils % Lymphocytes % Monocytes % Eosinophils % Basophils % Nucleated RBC % PT with INR 20.30 H INR 1.71 H PTT (Actin FS) Sodium Potassium Chloride Carbon Dioxide Anion Gap BUN Creatinine Est GFR (CKD-EPI)AfAm Est GFR (CKD-EPI)NonAf Random Glucose Lactic Acid 5.4 H* Calcium Phosphorus Magnesium Total Bilirubin Direct Bilirubin AST ALT Alkaline Phosphatase LD Total Creatine Kinase Creatine Kinase Index CK-MB (CK-2) Troponin I Total Protein Albumin Lipase Opiates Screen Methadone Screen Acetaminophen Barbiturate Screen Phencyclidine Screen Ur Amphetamines Screen MDMA (Ecstasy) Screen Benzodiazepines Screen Cocaine Screen U Marijuana (THC) Screen Alcohol, Quantitative < 3.0 07/29/19 07/29/19 11:28 11:45 WBC RBC Hgb Hct MCV MCH MCHC RDW Plt Count MPV Absolute Neuts (auto) Neutrophils % Lymphocytes % Monocytes % Eosinophils % Basophils % Nucleated RBC % PT with INR INR PTT (Actin FS) Sodium Potassium Chloride Carbon Dioxide Anion Gap BUN Creatinine Est GFR (CKD-EPI)AfAm Est GFR (CKD-EPI)NonAf Random Glucose Lactic Acid 5.7 H* Calcium Phosphorus Magnesium Total Bilirubin Direct Bilirubin AST ALT Alkaline Phosphatase LD Total Creatine Kinase Creatine Kinase Index CK-MB (CK-2) Troponin I Total Protein Albumin Lipase Opiates Screen Negative Methadone Screen Negative Acetaminophen Barbiturate Screen Negative Phencyclidine Screen Negative Ur Amphetamines Screen Negative MDMA (Ecstasy) Screen Negative Benzodiazepines Screen Negative Cocaine Screen Negative U Marijuana (THC) Screen Negative Alcohol, Quantitative Active Medications Generic Name Dose Route Start Last Admin Trade Name Freq PRN Reason Stop Dose Admin Aspirin 81 mg 07/30/19 10:00 Asa - PO DAILY [facility] Heparin Sodium (Porcine) 5,000 unit 07/29/19 06:00 07/29/19 13:11 Heparin - SQ 5,000 unit TID [facility] Administration Non-Formulary Medication 40 mg 07/29/19 15:00 Paroxetine Hcl [Paroxetine Hcl] PO DAILY [facility] Non-Formulary Medication 10 mg 07/29/19 22:00 Zolpidem Tartrate [Zolpidem Tartrate] PO HS [facility] ASSESSMENT/PLAN: 89 F with PMH of HTN, HLD, presented with weakness and shortness of breath with transaminitis. 1) Transaminitis from Drug Induced Liver Injury vs Shock Liver -LFTs on admission AST: 3495, ALT: 2170. Today AST: >2002 and ALT: 2175 -RUQ U/S shows cholelithiasis without sonographic evidence of acute cholecystitis. No definite biliary tract dilatation. Complex 2.6 X 3.4 X 3 cm splenic cystic structure is seen with several areas of peripheral calcification. -MRI/MRCP done. Pending results -CK level 158 -MACARIO/ASMA ordered -If development of encephalopathy, would transfer to liver center for further eval. -Avoiding amxocillin -Holding Fenofibrate and Statin -Monitor INR -GI consulted, appreciate recs. 2)SIRS -Fever, with tachycardia, with lactic acidosis -Lactic acid trending up to 5.7 -Blood culture pending -Urine culture growing Lactose fermenting gram negative bacilli -ID consulted,appreciate recs 3)CHF -BNP 6499 -Echo: EF of 20-25% -Lasix 40 mg IV Daily started -Carvedilol 3.125 mg PO BID -Cardiology consulted, appreciate recs 4)CHELSEA -Monitor Kidney Function -Renal U/S doesn't show hydronephrosis -Holding Losartan 5) Hx of HTN -Holding Losartan DVT Prophylaxis: Heparin SQ 5000 unit TID F:No fluids E: Trend BMP N: Sodium controlled diet Visit type - Emergency Visit Emergency Visit: Yes ED Registration Date: 07/28/19 Care time: The patient presented to the Emergency Department on the above date and was hospitalized for further evaluation of their emergent condition. - New Patient This patient is new to me today: Yes Date on this admission: 07/29/19 - Critical Care Critical Care patient: No ATTENDING PHYSICIAN STATEMENT I saw and evaluated the patient. I reviewed the resident's note and discussed the case with the resident. I agree with the resident's findings and plan as documented. SUBJECTIVE: OBJECTIVE: ASSESSMENT AND PLAN:
[2019-07-29] MEDS ORDERED: ZOLPIDEM TARTRATE 5 MG TABLET PO PRN (15:13)
[2019-07-29] MEDS: PARoxetine HCL 20 MG TABLET PO SCH (15:17)
--- NOTE | 2019-07-29 16:07 | CON.CARD ---
Cardiology Consult (text) - Consultation Consultation Note: cc: sob hpi: 89 f hx hld, ckd (bl 1.2), here with sob. Past few weeks has noticed sob , kevin. No cp palps dizzy loc pnd orthopnea le edema. No known hx hrt dz. Here found to have elevated lfts and sev dec lvef on echo. pmh: per hpi psh: hysterectomy social: no tob fam: no premature cad ros: per hpi; all others nl meds: Home Medications Medication Instructions Recorded Amoxicillin - [Amoxicillin 500mg 500 mg PO TID 07/28/19 Capsule -] Aspirin [Children's Aspirin] 81 mg PO DAILY 07/28/19 Fenofibrate Nanocrystallized 145 mg PO DAILY 07/28/19 [Fenofibrate] Losartan Potassium 50 mg PO DAILY 07/28/19 Lovastatin 20 mg PO DAILY 07/28/19 Paroxetine HCl 40 mg PO DAILY 07/28/19 Zolpidem Tartrate 10 mg PO DAILY 07/28/19 pe: Vital Signs Period Temp Pulse Resp BP Sys/Daniels Pulse Ox Last 24 Hr 97.3 F-100.6 F 88-105 17-22 123-151/75-90 97-100 nad no jvd rrr s1s2 no mrg bibasilar crackles nl eff aao3 no le e/c/c abd nt nd pos bs no jaundice diaphoresis pos dp pt no carotid bruits Laboratory Last Values WBC 10.6 K/mm3 (4.0-10.0) H 07/29/19 07:00 RBC 4.54 M/mm3 (3.60-5.2) 07/29/19 07:00 Hgb 12.2 GM/dL (10.7-15.3) 07/29/19 07:00 Hct 38.3 % (32.4-45.2) 07/29/19 07:00 MCV 84.3 fl (80-96) 07/29/19 07:00 MCH 26.8 pg (25.7-33.7) 07/29/19 07:00 MCHC 31.8 g/dl (32.0-36.0) L 07/29/19 07:00 RDW 14.2 % (11.6-15.6) 07/29/19 07:00 Plt Count 240 K/MM3 (134-434) 07/29/19 07:00 MPV 8.4 fl (7.5-11.1) 07/29/19 07:00 Absolute Neuts (auto) 8.7 K/mm3 (1.5-8.0) H 07/29/19 07:00 Neutrophils % 82.2 % (42.8-82.8) 07/29/19 07:00 Lymphocytes % 9.4 % (8-40) D 07/29/19 07:00 Monocytes % 7.4 % (3.8-10.2) 07/29/19 07:00 Eosinophils % 0.8 % (0-4.5) D 07/29/19 07:00 Basophils % 0.2 % (0-2.0) 07/29/19 07:00 Nucleated RBC % 0 % (0-0) 07/29/19 07:00 PT with INR 20.30 SEC (9.7-13.0) H 07/29/19 07:00 INR 1.71 (0.83-1.09) H 07/29/19 07:00 PTT (Actin FS) 27.2 SECONDS (25.2-36.5) 07/28/19 14:39 Sodium 137 mmol/L (136-145) 07/29/19 07:00 Potassium 4.2 mmol/L (3.5-5.1) 07/29/19 07:00 Chloride 103 mmol/L (98-107) 07/29/19 07:00 Carbon Dioxide 23 mmol/L (21-32) 07/29/19 07:00 Anion Gap 11 MMOL/L (8-16) 07/29/19 07:00 BUN 20.9 mg/dL (7-18) H 07/29/19 07:00 Creatinine 1.5 mg/dL (0.55-1.3) H 07/29/19 07:00 Est GFR (CKD-EPI)AfAm 35.68 07/29/19 07:00 Est GFR (CKD-EPI)NonAf 30.78 07/29/19 07:00 Random Glucose 176 mg/dL (74-106) H 07/29/19 07:00 Lactic Acid 5.7 mmol/L (0.4-2.0) H* 07/29/19 11:45 Calcium 8.6 mg/dL (8.5-10.1) 07/29/19 07:00 Phosphorus 2.2 mg/dL (2.5-4.9) L 07/28/19 19:57 Magnesium 1.8 mg/dL (1.8-2.4) 07/29/19 07:00 Total Bilirubin 1.6 mg/dL (0.2-1) H 07/29/19 07:00 Direct Bilirubin 1.0 mg/dL (0.0-0.2) H 07/29/19 07:00 AST > 2002 U/L (15-37) H 07/29/19 07:00 ALT 2175 U/L (13-61) H 07/29/19 07:00 Alkaline Phosphatase 90 U/L (45-117) 07/29/19 07:00 LD Total 1264 U/L (84-246) H 07/29/19 07:00 Creatine Kinase 158 U/L (26-192) 07/28/19 14:20 Creatine Kinase Index 1.5 % (0.0-5.0) 07/28/19 14:20 CK-MB (CK-2) 2.5 ng/mL (0.5-3.6) 07/28/19 14:20 Troponin I 0.04 ng/ml (0.00-0.05) 07/28/19 14:20 B-Natriuretic Peptide 6499.0 pg/ml (5-450) H 07/28/19 12:50 Total Protein 6.6 g/dl (6.4-8.2) 07/29/19 07:00 Albumin 3.4 g/dl (3.4-5.0) 07/29/19 07:00 Lipase 73 U/L (73-393) 07/28/19 14:20 Urine Color Dk yellow 07/28/19 12:50 Urine Appearance Clear 07/28/19 12:50 Urine pH 5.0 (5.0-8.0) 07/28/19 12:50 Ur Specific [place] 1.026 (1.010-1.035) 07/28/19 12:50 Urine Protein 2+ (NEGATIVE) H 07/28/19 12:50 Urine Glucose (UA) 3+ (NEGATIVE) H 07/28/19 12:50 Urine Ketones Trace (NEGATIVE) H 07/28/19 12:50 Urine Blood Negative (NEGATIVE) 07/28/19 12:50 Urine Nitrite Negative (NEGATIVE) 07/28/19 12:50 Urine Bilirubin Negative (NEGATIVE) 07/28/19 12:50 Urine Urobilinogen 1.0 mg/dL (0.2-1.0) 07/28/19 12:50 Ur Leukocyte Esterase Negative (NEGATIVE) 07/28/19 12:50 Urine WBC (Auto) 2 /hpf (0-5) 07/28/19 12:50 Urine RBC (Auto) 2 /hpf (0-4) 07/28/19 12:50 Urine Casts (Auto) 6 /lpf (0-8) 07/28/19 12:50 U Epithel Cells (Auto) 5.7 /HPF (0-5/HPF) 07/28/19 12:50 Urine Bacteria (Auto) 4.3 /hpf (NEGATIVE) 07/28/19 12:50 Opiates Screen Negative ng/ml (BDLVZO=493) 07/29/19 11:28 Methadone Screen Negative ng/ml (PVZSVE=590) 07/29/19 11:28 Acetaminophen <2.0 07/28/19 14:10 Barbiturate Screen Negative ng/ml (OKOZTR=446) 07/29/19 11:28 Phencyclidine Screen Negative ng/ml (CUTOFF=25) 07/29/19 11:28 Ur Amphetamines Screen Negative ng/ml (NZPYGS=065) 07/29/19 11:28 MDMA (Ecstasy) Screen Negative ng/ml (QKSEBL=879) 07/29/19 11:28 Benzodiazepines Screen Negative ng/ml (XNQSAE=939) 07/29/19 11:28 Cocaine Screen Negative ng/ml (TJEUPA=586) 07/29/19 11:28 U Marijuana (THC) Screen Negative ng/ml (CUTOFF=50) 07/29/19 11:28 Alcohol, Quantitative < 3.0 mg/dL (0.0-5.0) 07/29/19 07:00 ecg: sr lbbb cxr: clear lungs echo 07/2019: lvef 20-25, global hk, nl rv, sev tr, mild lae, mod mr, rvsp 40- 50 a/p: 89 f hx hld, ckd (bl 1.2), here with sob. sob, acute systolic chf: -no known hx hrt dz but echo here showing reduced lvef and sev tr -seems that pt has vol overload with hepatic congestion causing elevated lfts -will start lasix 40 iv qd and monitor daily wts, chemistry -start coreg for chf regimen. hold off on jarvis/arb given sree at the moment hld: -statin held 2/2 elevated lfts sree on ckd: -monitor cr with diuresis, possibly cardiorenal abnl ecg: -lbbb likely due to sev dec lvef. ischemic w/u when vol status improved.
[2019-07-29] MEDS: FUROSEMIDE 40 MG/4 ML INJECTABLE VIAL IVPUSH SCH (16:17)
--- NOTE | 2019-07-29 16:50 | PN.GI ---
GI Progress Note Subjective: GI NOte: Given the EF found on echo Leanna's nonproductive cough and diaphoreiss on minimal exertion more likely reflect her heart failure than an URI. This also suggests that her liver abnormalities reflect congestive hepatopathy or perhaps shock liver from a transient hypotensive episode. She denies any h/o liver disease or any predispositions to it. I discussed the situation with both daughters. - Objective Vital Signs: Vital Signs Temperature 97.3 F L 07/29/19 13:53 Pulse Rate 104 H 07/29/19 13:53 Respiratory Rate 20 07/29/19 13:53 Blood Pressure 148/81 07/29/19 13:53 O2 Sat by Pulse Oximetry (%) 99 07/29/19 09:00 Laboratory Tests 07/28/19 07/28/19 07/28/19 12:50 12:50 14:20 WBC 12.2 H Plt Count Total Bilirubin 1.0 Direct Bilirubin AST 3495 H ALT 2170 H Alkaline Phosphatase 84 LD Total B-Natriuretic Peptide 6499.0 H 07/29/19 07/29/19 07:00 07:00 WBC 10.6 H Plt Count 240 Total Bilirubin 1.6 H Direct Bilirubin 1.0 H AST > 2002 H ALT 2175 H Alkaline Phosphatase 90 LD Total 1264 H B-Natriuretic Peptide Constitutional: Calm Eyes: Yes: Conjunctiva Clear Cardiovascular: Yes: Tachycardia ...Auscultate: Yes: Normoactive Bowel Sounds ...Palpate: Yes: Soft, Other (nontender) Labs: CBC, BMP 07/29/19 07:00 07/29/19 07:00 INR, PTT INR 1.71 (0.83-1.09) H 07/29/19 07:00 Assessment/Plan Assessment: -- Suspect congestive hepatopathy or perhaps shock liver given her CHF but cannot exclude a DILI ( drug induced liver injury). Doubt a chronic liver disease. Do not believe that her gallstones are implicated. Anticipate normalization when her cardiac situation is managed. Plan: -- Await pending studies and MRCP Dr Albrecht will be covering this weekend. Please call him as needed. Problem List - Problems (1) Abnormal liver enzymes Code(s): R74.8 - ABNORMAL LEVELS OF OTHER SERUM ENZYMES (2) Hypertension Code(s): I10 - ESSENTIAL (PRIMARY) HYPERTENSION (3) Hyperlipidemia Code(s): E78.5 - HYPERLIPIDEMIA, UNSPECIFIED (4) New onset of congestive heart failure Code(s): I50.9 - HEART FAILURE, UNSPECIFIED
[2019-07-29] MEDS ORDERED: PT OWN MED DRAWER 7, Y5N ONE (21:56)
[2019-07-29] MEDS: CARVEDILOL 3.125 MG TABLET (FP) PO SCH (22:16)
[2019-07-30 06:06] LABS: CMV IgM < 30.0 AU/mL (0.0-29.9)
[2019-07-30 06:36] LABS: BASO % 0.3 % (0-2.0); EOS % 0.7 % (0-4.5); HEMATOCRIT 40.1 % (32.4-45.2); HEMOGLOBIN 12.8 GM/dL (10.7-15.3); LYMPH % 7.5 % (8-40); MCH 26.9 pg (25.7-33.7); MCHC 31.8 g/dl (32.0-36.0); MEAN CELL VOLUME 84.4 fl (80-96); MEAN PLT VOLUME 8.5 fl (7.5-11.1); MONO % 6.5 % (3.8-10.2); PLATELET COUNT 268 K/MM3 (134-434); RBC 4.75 M/mm3 (3.60-5.2); RDW 14.3 % (11.6-15.6); WHITE BLOOD COUNT 11.8 K/mm3 (4.0-10.0)
[2019-07-30] MEDS: HEPARIN NA (PORCINE) 5,000 UNITS/ML 1ML VIAL SQ SCH ×3 (06:39→22:14)
[2019-07-30 06:50] LABS: INR 1.66 (0.83-1.09); PROTHROMBIN TIME (PATIENT) 19.7 SEC (9.7-13.0)
[2019-07-30 07:04] LABS: ALBUMIN 3.4 g/dl (3.4-5.0); ALK PHOS 97 U/L (45-117); ANION GAP 9 MMOL/L (8-16); BILIRUBIN,DIRECT 0.7 mg/dL (0.0-0.2); BILIRUBIN,TOTAL 1.2 mg/dL (0.2-1); BILIRUBIN,TOTAL 1.3 mg/dL (0.2-1); BLOOD UREA NITROGEN 26.6 mg/dL (7-18); CALCIUM 8.5 mg/dL (8.5-10.1); CHLORIDE 98 mmol/L (98-107); CO2 25 mmol/L (21-32); CREATININE 1.4 mg/dL (0.55-1.3); GLUCOSE,RANDOM 248 mg/dL (74-106); IRON SERUM 22 ug/dL (50-175); POTASSIUM 3.9 mmol/L (3.5-5.1); SGOT/AST > 1000 U/L (15-37); SGPT/ALT > 1000 U/L (13-61); SODIUM 132 mmol/L (136-145); TOT PROT 6.4 g/dl (6.4-8.2); TOT PROT 6.7 g/dl (6.4-8.2); TOTAL IRON BINDING CAPACITY 498 ug/dL (250-450)
[2019-07-30] MEDS ORDERED: PT OWN MED DRAWER 7, Y5N ONE ×2 (09:19→21:41)
[2019-07-30] MEDS: FUROSEMIDE 40 MG/4 ML INJECTABLE VIAL IVPUSH SCH (10:10)
[2019-07-30] MEDS: ASPIRIN 81 MG CHEWABLE TABLETS PO SCH (10:10)
[2019-07-30] MEDS: CARVEDILOL 3.125 MG TABLET (FP) PO SCH ×2 (10:10→22:14)
[2019-07-30] MEDS: PARoxetine HCL 20 MG TABLET PO SCH (10:11)
--- NOTE | 2019-07-30 11:43 | PN ---
Progress Note (short form) - Note Progress Note: Pt reports feeling better. Denies nausea, any GI symptoms. Hepatic Panel Total Bilirubin 1.2 mg/dL (0.2-1) H 07/30/19 06:20 Direct Bilirubin 0.7 mg/dL (0.0-0.2) H 07/30/19 06:20 AST > 1000 U/L (15-37) H 07/30/19 06:20 ALT > 1000 U/L (13-61) H 07/30/19 06:20 Alkaline Phosphatase 97 U/L (45-117) 07/30/19 06:20 Albumin 3.4 g/dl (3.4-5.0) 07/30/19 06:20 Aminotransferases still markedly elevated but bilirubin stable -- if anything, is slightly lower (1.3->1.2). 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 Her hepatitis A IgM antibody was reported as "indeterminate". If it is repeated as an outpatient and comes back positive that would make hepatitis A likely. Ms Fagan says that she recently ate out ("[employer]") and also will frequently order pizza for delivery/takeout.
--- NOTE | 2019-07-30 12:32 | PN ---
Physical Exam: SUBJECTIVE: Patient seen and examined in the morning. No acute events overnight. No complaints of chest pain, shortness of breath, abdominal pain, nausea, vomiting, diarrhea. OBJECTIVE: Vital Signs Period Temp Pulse Resp BP Sys/Daniels Pulse Ox Last 24 Hr 97.3 F-99.2 F 84-112 17-20 121-148/72-88 99 GENERAL: The patient is awake, alert, and fully oriented, in no acute distress. HEAD: Normal with no signs of trauma. EYES: Extraocular movements intact, sclera anicteric, conjunctiva clear. LUNGS: Breath sounds equal, clear to auscultation bilaterally, no wheezes, no crackles, no accessory muscle use. HEART: Regular rate and rhythm, S1, S2 without murmur, rub or gallop. ABDOMEN: Soft, nontender, nondistended, normoactive bowel sounds, no guarding. EXTREMITIES: 2+ pulses, warm, well-perfused, no edema. NEUROLOGICAL: Cranial nerves II through XII grossly intact. Normal speech Laboratory Results - last 24 hr 07/28/19 07/29/19 07/29/19 14:39 07:00 11:28 WBC RBC Hgb Hct MCV MCH MCHC RDW Plt Count MPV Absolute Neuts (auto) Neutrophils % Lymphocytes % Monocytes % Eosinophils % Basophils % Nucleated RBC % PT with INR INR Sodium Potassium Chloride Carbon Dioxide Anion Gap BUN Creatinine Est GFR (CKD-EPI)AfAm Est GFR (CKD-EPI)NonAf Random Glucose Lactic Acid Calcium Iron TIBC Iron Saturation Unsaturated IBC Ferritin Total Bilirubin Direct Bilirubin AST 2755 H ALT Alkaline Phosphatase Ammonia Total Protein Albumin Opiates Screen Negative Methadone Screen Negative Barbiturate Screen Negative Phencyclidine Screen Negative Ur Amphetamines Screen Negative MDMA (Ecstasy) Screen Negative Benzodiazepines Screen Negative Cocaine Screen Negative U Marijuana (THC) Screen Negative CMV IgG Ab CMV IgM Ab Hep A IgM Ab Confirm Indeterminate H Hep Bs Antigen Negative Hep B Core IgM Ab Negative Hepatitis C Ab (EIA) 0.1 07/29/19 07/29/19 07/30/19 11:45 11:45 06:20 WBC RBC Hgb Hct MCV MCH MCHC RDW Plt Count MPV Absolute Neuts (auto) Neutrophils % Lymphocytes % Monocytes % Eosinophils % Basophils % Nucleated RBC % PT with INR INR Sodium Potassium Chloride Carbon Dioxide Anion Gap BUN Creatinine Est GFR (CKD-EPI)AfAm Est GFR (CKD-EPI)NonAf Random Glucose Lactic Acid 5.7 H* 4.1 H* Calcium Iron TIBC Iron Saturation Unsaturated IBC Ferritin Total Bilirubin Direct Bilirubin AST ALT Alkaline Phosphatase Ammonia Total Protein Albumin Opiates Screen Methadone Screen Barbiturate Screen Phencyclidine Screen Ur Amphetamines Screen MDMA (Ecstasy) Screen Benzodiazepines Screen Cocaine Screen U Marijuana (THC) Screen CMV IgG Ab > 10.00 H CMV IgM Ab < 30.0 Hep A IgM Ab Confirm Hep Bs Antigen Hep B Core IgM Ab Hepatitis C Ab (EIA) 07/30/19 07/30/19 07/30/19 06:20 06:20 06:20 WBC RBC Hgb Hct MCV MCH MCHC RDW Plt Count MPV Absolute Neuts (auto) Neutrophils % Lymphocytes % Monocytes % Eosinophils % Basophils % Nucleated RBC % PT with INR 19.70 H INR 1.66 H Sodium Potassium Chloride Carbon Dioxide Anion Gap BUN Creatinine Est GFR (CKD-EPI)AfAm Est GFR (CKD-EPI)NonAf Random Glucose Lactic Acid Calcium Iron TIBC Iron Saturation Unsaturated IBC Ferritin Total Bilirubin 1.3 H Direct Bilirubin 0.7 H AST > 1000 H ALT > 1000 H Alkaline Phosphatase 104 Ammonia 26.30 Total Protein 6.7 Albumin 3.4 Opiates Screen Methadone Screen Barbiturate Screen Phencyclidine Screen Ur Amphetamines Screen MDMA (Ecstasy) Screen Benzodiazepines Screen Cocaine Screen U Marijuana (THC) Screen CMV IgG Ab CMV IgM Ab Hep A IgM Ab Confirm Hep Bs Antigen Hep B Core IgM Ab Hepatitis C Ab (EIA) 07/30/19 07/30/19 07/30/19 06:20 06:20 09:00 WBC 11.8 H RBC 4.75 Hgb 12.8 Hct 40.1 MCV 84.4 MCH 26.9 MCHC 31.8 L RDW 14.3 Plt Count 268 MPV 8.5 Absolute Neuts (auto) 10.1 H Neutrophils % 85.0 H Lymphocytes % 7.5 L D Monocytes % 6.5 Eosinophils % 0.7 Basophils % 0.3 Nucleated RBC % 1 H PT with INR INR Sodium 132 L Potassium 3.9 Chloride 98 Carbon Dioxide 25 Anion Gap 9 BUN 26.6 H Creatinine 1.4 H Est GFR (CKD-EPI)AfAm 38.78 Est GFR (CKD-EPI)NonAf 33.46 Random Glucose 248 H Lactic Acid 4.3 H* Calcium 8.5 Iron 22 L TIBC 498 H Iron Saturation 4 L Unsaturated IBC 476 H Ferritin 60.5 Total Bilirubin 1.2 H Direct Bilirubin AST > 1000 H ALT > 1000 H Alkaline Phosphatase 97 Ammonia Total Protein 6.4 Albumin 3.4 Opiates Screen Methadone Screen Barbiturate Screen Phencyclidine Screen Ur Amphetamines Screen MDMA (Ecstasy) Screen Benzodiazepines Screen Cocaine Screen U Marijuana (THC) Screen CMV IgG Ab CMV IgM Ab Hep A IgM Ab Confirm Hep Bs Antigen Hep B Core IgM Ab Hepatitis C Ab (EIA) Active Medications Generic Name Dose Route Start Last Admin Trade Name Freq PRN Reason Stop Dose Admin Aspirin 81 mg 07/30/19 10:00 07/30/19 10:10 Asa - PO 81 mg DAILY MASOOD Administration Carvedilol 3.125 mg 07/29/19 22:00 07/30/19 10:10 Coreg - PO 3.125 mg BID MASOOD Administration Furosemide 40 mg 07/29/19 16:00 07/30/19 10:10 Lasix Injection - IVPUSH 40 mg DAILY MASOOD Administration Heparin Sodium (Porcine) 5,000 unit 07/29/19 06:00 07/30/19 06:39 Heparin - SQ 5,000 unit TID MASOOD Administration Paroxetine HCl 40 mg 07/29/19 15:00 07/30/19 10:11 Paxil - PO 40 mg DAILY MASOOD Administration Zolpidem Tartrate 5 mg 07/29/19 15:13 Ambien - PO HS PRN INSOMNIA ASSESSMENT/PLAN: 89 F with PMH of HTN, HLD, presented with weakness and shortness of breath with transaminitis. 1) Transaminitis from Drug Induced Liver Injury vs Shock Liver -LFTs on admission AST: 3495, ALT: 2170. Today AST: 1759. ALT: 1966. -RUQ U/S shows cholelithiasis without sonographic evidence of acute cholecystitis. No definite biliary tract dilatation. Complex 2.6 X 3.4 X 3 cm splenic cystic structure is seen with several areas of peripheral calcification. -MRI/MRCP pending -CK level 158 -Possibly Hepatitis A, still pending labs -CMV IGG positive, IGM negative -MACARIO/ASMA ordered -Avoiding amxocillin -Holding Fenofibrate and Statin -GI consulted, appreciate recs. 2)SIRS -Fever, with tachycardia, with lactic acidosis -Lactic acid down to 4.1 but up to 4.3 today. -Blood culture pending -Urine culture growing Lactose fermenting gram negative bacilli but <10,000 and no urinary symptoms reported. -ID consulted,appreciate recs 3)CHF -BNP 6499 -Echo: EF of 20-25% -Lasix 40 mg IV Daily started -Carvedilol 3.125 mg PO BID -Cardiology consulted, appreciate recs 4)CHELSEA -Monitor Kidney Function -Renal U/S doesn't show hydronephrosis -Holding Losartan 5) Hx of HTN -Holding Losartan DVT Prophylaxis: Heparin SQ 5000 unit TID F:No fluids E: Trend BMP N: Sodium controlled diet Visit type - Emergency Visit Emergency Visit: Yes ED Registration Date: 07/28/19 Care time: The patient presented to the Emergency Department on the above date and was hospitalized for further evaluation of their emergent condition. - New Patient This patient is new to me today: No - Critical Care Critical Care patient: No ATTENDING PHYSICIAN STATEMENT I saw and evaluated the patient. I reviewed the resident's note and discussed the case with the resident. I agree with the resident's findings and plan as documented. SUBJECTIVE: OBJECTIVE: ASSESSMENT AND PLAN:
--- NOTE | 2019-07-30 14:22 | PN ---
Teaching Attending Note Name of Resident: Nathaniel Enriquez ATTENDING PHYSICIAN STATEMENT I saw and evaluated the patient. I reviewed the resident's note and discussed the case with the resident. I agree with the resident's findings and plan as documented. SUBJECTIVE: no fever or chills. feels tired but better than yesterday. no ABd pain ,no SOB . more history obtained. sx started with sore throat and fatigue x 1 week ago. then few days later she started having fever . amoxi was started after the fever started . OBJECTIVE: NAD, awake, alert, cooperative HEENT: dry MM. + JVD . CV: RRR, no MRG Lungs: CTAB , decreased breath sounds at bases Abd: soft, NT, ND, NL BS ,liver is not palpable and not percussable Ext: No edema , no erythema ASSESSMENT AND PLAN: 89 y/o lady with h/o HTN, HLP, Hysterectomy who presented with fever , chills x 1 -2 weeks and was found to have transaminitis . 1- New onset acute systolic heart failure: with severely reduced EF. - cause is unknown. ? viral cardiomyositis . need to r/o ischemic cardiomyopathy. - cont lasix - cont coreg, toelrated that . - will d/w card the need fro life vest befoer dc given her EF is 20-25% - will need R/L heart cath at some point - hold MARCO/ARB for now - check resp viral panel - place foely for I&O - appreciate Card help 2- Acute transaminitis: still uncelar etiolgoy. ? congestive hepatopathy, VS viral ( hep A) , Vs. autoimmune Liver function improved. Still with no tenderness in RUQ - cont supportive measures - CNV, Hep A, Hep C, Hep B serology noted. - F/u EBV, rest of HEp B , MACARIO, ASMA, and rest of serology - monitor LFTS - cont to hold statin and fibrates - avoid tylenol 3- CHELSEA : probably prerenal azotemia due to decreased perfusion of kidneys in setting of heart failure - cont to monitor with diuresis - avoid NSIADS - hold losartan 4- SIRS , no source of bacterial infection. - hold off abx - follow blood cx ( neg to date ) 5- H/o HTN: hold losratan due to CHELSEA. monitor BP 6- DVT PX : heparin SQ
[2019-07-30 19:07] LABS: EPSTEIN BARR ANTIBODY IgM <36.0 U/mL (0.0-35.9)
[2019-07-30 19:07] LABS: HEP B CORE AB, TOT Negative (Negative)
[2019-07-31] MEDS: HEPARIN NA (PORCINE) 5,000 UNITS/ML 1ML VIAL SQ SCH ×3 (05:35→21:41)
[2019-07-31] MEDS ORDERED: PT OWN MED DRAWER 7, Y5N ONE ×3 (07:25→14:17)
[2019-07-31 07:34] LABS: BASO % 0.7 % (0-2.0); EOS % 0.2 % (0-4.5); HEMATOCRIT 39.1 % (32.4-45.2); HEMOGLOBIN 12.5 GM/dL (10.7-15.3); LYMPH % 11.4 % (8-40); MCH 26.4 pg (25.7-33.7); MEAN CELL VOLUME 82.7 fl (80-96); MEAN PLT VOLUME 8.6 fl (7.5-11.1); MONO % 8.9 % (3.8-10.2); NEUT % 78.8 % (42.8-82.8); PLATELET COUNT 274 K/MM3 (134-434); RBC 4.74 M/mm3 (3.60-5.2); RDW 14.3 % (11.6-15.6); WHITE BLOOD COUNT 14.3 K/mm3 (4.0-10.0)
[2019-07-31 07:38] LABS: INR 1.99 (0.83-1.09); PROTHROMBIN TIME (PATIENT) 23.7 SEC (9.7-13.0)
[2019-07-31 08:07] LABS: ALBUMIN 3.1 g/dl (3.4-5.0); BILIRUBIN,DIRECT 1.2 mg/dL (0.0-0.2); BLOOD UREA NITROGEN 32.6 mg/dL (7-18); CALCIUM 8.6 mg/dL (8.5-10.1); CREATININE 1.5 mg/dL (0.55-1.3); MAGNESIUM 1.9 mg/dL (1.8-2.4); PHOSPHOROUS 2.8 mg/dL (2.5-4.9); POTASSIUM 4.8 mmol/L (3.5-5.1); TOT PROT 6.4 g/dl (6.4-8.2)
[2019-07-31] MEDS: ASPIRIN 81 MG CHEWABLE TABLETS PO SCH (09:45)
[2019-07-31] MEDS: CARVEDILOL 3.125 MG TABLET (FP) PO SCH ×2 (09:46→21:41)
[2019-07-31] MEDS: FUROSEMIDE 40 MG/4 ML INJECTABLE VIAL IVPUSH SCH (09:46)
[2019-07-31] MEDS: PARoxetine HCL 20 MG TABLET PO SCH (09:46)
--- NOTE | 2019-07-31 11:14 | CON.PSY ---
Psychiatry Consult Chief Complaint: None- Asked to see this patient for a hx of Depression History of Present Problem: Patient is currently on Paxil 40 mgs for ' as long as she can remember!" she says. She denies depressive symptoms, only a bit worried about her health and her SOB. Admits that she feels 'better; and less SOB now Carlee hx of psychiatric hospitalization No hx of care from mental health receives Paxil from PCP No hx of suicidal attempts cc " I have sore throat!" Symptoms: denies: Depressed Mood, Anhedonia, Worthlessness/Guilt, Decreased Energy, Suicidality, Self destructive thoughts, Appetite Disturbance, Weight change, Hopelessness, Sleep Disturbance, Diurnal Mood Changes, Impaired Concentration, Decreased Motivation, Memory Impairment, Irritability, Expansive / Elevated Mood, Grandiosity, Hyper-religiosity, Excessive Energy, Racing Thoughts, Anxiety, Panic Attacks, Obsessive Thoughts, Flashbacks, Compulsive Behaviors, Agoraphobia, Restlessness, Phobias, Bulimic Behavior, Anorexic Behavior, Somatic Symptoms, Sexual Dysfunction, Inability to Control Temper, Aggressivity, Impulsivity, Depersonalization, Derealization, Amnesic Episodes, Disorganized/Disruptive Thoughts, Delusions, Hallucinations, Paranoia, Conduct Problems, Oppositionalism, Attention Deficit, Learning Problems, Firesetting, Enuresis, Lying, Hyperactivity, Other - Current Medications Current Medications: Active Medications Aspirin (Asa -) 81 mg PO DAILY [facility] Last Admin: 07/31/19 09:45 Dose: 81 mg Carvedilol (Coreg -) 3.125 mg PO BID [facility] Last Admin: 07/31/19 09:46 Dose: 3.125 mg Furosemide (Lasix Injection -) 40 mg IVPUSH DAILY [facility] Last Admin: 07/31/19 09:46 Dose: 40 mg Heparin Sodium (Porcine) (Heparin -) 5,000 unit SQ TID [facility] Last Admin: 07/31/19 05:35 Dose: 5,000 unit Paroxetine HCl (Paxil -) 40 mg PO DAILY [facility] Last Admin: 07/31/19 09:46 Dose: 40 mg - Allergies Allergies: Allergies Allergy/AdvReac Type Severity Reaction Status Date / Time metoclopramide [From Reglan] Allergy Verified 07/28/19 11:40 prochlorperazine Allergy Verified 07/28/19 11:39 [From Compazine] - Current Living Status Usual Living Arrangement: Other (lives with daughter) - Affect Affect: Other (appropriate neutral) - Mood Mood: Other (neutral) - Speech/Language Expressive: Coherent Receptive: Age Appropriate Comprehension of Spoken Words - Psychomotor Activity Psychomotor Activity: Normal - Thought Process Thought Process: Intact - Thought Content Hallucinations: Absent Delusions: Absent - Cognition Attention: Alert Orientation: Time, Person, Place Memory, Immediate Recall: Intact Memory, Short Term: 2/3 - Concentration Serial Sevens Intact: No Simple Calculations Intact: Yes - Abstraction Proverb Interpretation: Intact Judgement: Intact - Insight Insight: Intact - Impulse Control Impulse Control: Good Control - Suicidal Ideation Suicidal Ideation: No - Homicidal Ideation Homicidal Ideation: No Assessment/Plan Patient with history of Depression and is currently on Paxil Continue Paxil-
--- NOTE | 2019-07-31 12:35 | PN ---
Progress Note (short form) - Note Progress Note: Denies any abdominal pain or nausea. Feels lethargic. INR, PTT INR 1.99 (0.83-1.09) H 07/31/19 06:20 Hepatic Panel Total Bilirubin 2.0 mg/dL (0.2-1) H 07/31/19 06:20 Direct Bilirubin 1.2 mg/dL (0.0-0.2) H 07/31/19 06:20 AST 1659 U/L (15-37) H 07/31/19 06:20 ALT 1764 U/L (13-61) H 07/31/19 06:20 Alkaline Phosphatase 110 U/L (45-117) 07/31/19 06:20 Albumin 3.1 g/dl (3.4-5.0) L 07/31/19 06:20 Testing for Hepatitis B, acute CMV, acute EBV negative. Hepatitis A IgM was indeterminate and still remains a possible diagnosis. The rise in bilirubin and INR today is of concern and could be a sign that the aminotransferases are down, not because she is getting over the hepatic insult, but because she is running out of hepatocytes. Given that I have done 2 things: 1) stopped aspirin, as her INR is climbing and she denies any history of DC or stent 2) stopped paroxetine. Although it is unlikely to be the cause of her liver disease liver toxicity from paroxetine is not unknown. Liver toxicity from furosemide or carvedilol is exceedingly rare and I would not stop those drugs now. Continue to monitor LFTs and INR.
--- NOTE | 2019-07-31 15:42 | PN ---
Progress Note (short form) - Note Progress Note: Subjective: no fever or chills. No GARCIA , no pain . Objective: Vital Signs: NAD, awake, alert, cooperative HEENT: MMM + JVD . CV: RRR, no MRG Lungs: CTAB , decreased breath sounds at bases Abd: soft, NT, ND, NL BS Ext: No edema , no erythema ASSESSMENT AND PLAN: 89 y/o lady with h/o HTN, HLP, Hysterectomy who presented with fever , chills x 1 -2 weeks and was found to have transaminitis . 1- New onset acute systolic heart failure: with severely reduced EF. - cause is unknown. ? viral cardiomyositis . need to r/o ischemic cardiomyopathy. - cont lasix - cont coreg - will d/w card the need for life vest before dc given her EF is 20-25% - will need R/L heart cath at some point - hold MARCO/ARB for now - check resp viral panel 2- Acute transaminitis: still uncelar etiolgoy. ? congestive hepatopathy, VS viral ( hep A) Vs other Bili is higher today - cont supportive measures - CMV, Hep A, Hep C, Hep B serology noted. 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 will d/w GI the need for taper to avoid withdrawal side effects especially seizures 3- CHELSEA: probably prerenal azotemia due to decreased perfusion of kidneys in setting of heart failure - cont to monitor with diuresis - hold losartan 4- SIRS, no source of bacterial infection. - hold off abx - follow blood cx ( neg to date ) 5- H/o HTN: hold losratan due to CHELSEA. monitor BP 6- DVT PX : heparin SQ Visit type - Emergency Visit Emergency Visit: Yes ED Registration Date: 07/28/19 Care time: The patient presented to the Emergency Department on the above date and was hospitalized for further evaluation of their emergent condition. - New Patient This patient is new to me today: No - Critical Care Critical Care patient: No
--- NOTE | 2019-07-31 17:05 | PN ---
Progress Note (short form) - Note Progress Note: constipated mentally improving per daughter Vital Signs Period Temp Pulse Resp BP Sys/Daniels Pulse Ox Last 24 Hr 97.5 F-99 F 72-93 18-20 110-130/65-77 cor-rrr lungs clear abd soft, nt ext no edema CBC, BMP 07/31/19 06:20 07/31/19 06:20 Microbiology 07/28/19 12:50 Blood - Peripheral Venous Blood Culture - Preliminary NO GROWTH OBTAINED AFTER 72 HOURS, INCUBATION TO CONTINUE FOR 2 DAYS. 07/28/19 12:50 Blood - Peripheral Venous Blood Culture - Preliminary NO GROWTH OBTAINED AFTER 72 HOURS, INCUBATION TO CONTINUE FOR 2 DAYS. 07/28/19 12:50 Urine - Urine Clean Catch Urine Culture - Final Lactose Fermenting Neg Bacilli Laboratory Tests 07/29/19 07/29/19 07/30/19 07:00 07:00 06:20 Total Bilirubin 1.6 H Direct Bilirubin 1.0 H AST > 2002 H ALT 2175 H > 1000 H Alkaline Phosphatase 90 Hep A IgM Ab Confirm Indeterminate H Hepatitis A Ab Total Positive H 07/31/19 06:20 Total Bilirubin Direct Bilirubin AST 1659 H ALT 1764 H Alkaline Phosphatase Hep A IgM Ab Confirm Hepatitis A Ab Total Current Medications Carvedilol (Coreg -) 3.125 mg PO BID [facility] Last Admin: 07/31/19 09:46 Dose: 3.125 mg Furosemide (Lasix Injection -) 40 mg IVPUSH DAILY [facility] Last Admin: 07/31/19 09:46 Dose: 40 mg Heparin Sodium (Porcine) (Heparin -) 5,000 unit SQ TID [facility] Last Admin: 07/31/19 05:35 Dose: 5,000 unit a/p hepatitis- ?hep A transaminases trending down but inr is up which is concerning will follow ebv/cmv serology shows old disease heart failure- per cardiology constipation d/w daughter at [facility]
[2019-08-01] MEDS: HEPARIN NA (PORCINE) 5,000 UNITS/ML 1ML VIAL SQ SCH ×3 (05:25→21:42)
[2019-08-01 07:26] LABS: INR 1.87 (0.83-1.09); PROTHROMBIN TIME (PATIENT) 22.2 SEC (9.7-13.0)
[2019-08-01 07:56] LABS: BASO % 0.4 % (0-2.0); EOS % 0.1 % (0-4.5); HEMATOCRIT 39.7 % (32.4-45.2); HEMOGLOBIN 12.7 GM/dL (10.7-15.3); MCH 26.6 pg (25.7-33.7); MEAN CELL VOLUME 82.9 fl (80-96); MEAN PLT VOLUME 8.9 fl (7.5-11.1); MONO % 9.8 % (3.8-10.2); NEUT % 77.7 % (42.8-82.8); PLATELET COUNT 270 K/MM3 (134-434); RBC 4.78 M/mm3 (3.60-5.2); RDW 14.5 % (11.6-15.6); WHITE BLOOD COUNT 14.7 K/mm3 (4.0-10.0)
[2019-08-01 08:08] LABS: ALBUMIN 3.1 g/dl (3.4-5.0); BILIRUBIN,DIRECT 1.4 mg/dL (0.0-0.2); BLOOD UREA NITROGEN 41.4 mg/dL (7-18); CALCIUM 8.7 mg/dL (8.5-10.1); CREATININE 1.3 mg/dL (0.55-1.3); POTASSIUM 5.1 mmol/L (3.5-5.1); TOT PROT 6.1 g/dl (6.4-8.2)
[2019-08-01] MEDS ORDERED: SODIUM CHLORIDE 1,000 ML IV SCH (08:45)
[2019-08-01] MEDS: CARVEDILOL 3.125 MG TABLET (FP) PO SCH ×2 (09:01→21:43)
[2019-08-01] MEDS: FUROSEMIDE 40 MG/4 ML INJECTABLE VIAL IVPUSH SCH (09:01)
--- NOTE | 2019-08-01 12:15 | PN ---
Progress Note (short form) - Note Progress Note: feels well eating lunch Vital Signs Period Temp Pulse Resp BP Sys/Daniels Pulse Ox Last 24 Hr 97.4 F-98.9 F 72-93 17-20 107-129/59-79 100-100 cor-rrr lungs decreased bs at bases abd soft,nt ext no edema CBC, BMP 08/01/19 06:40 08/01/19 12:41 Microbiology 07/28/19 12:50 Blood - Peripheral Venous Blood Culture - Preliminary NO GROWTH OBTAINED AFTER 96 HOURS, INCUBATION TO CONTINUE FOR 1 DAYS. 07/28/19 12:50 Blood - Peripheral Venous Blood Culture - Preliminary NO GROWTH OBTAINED AFTER 96 HOURS, INCUBATION TO CONTINUE FOR 1 DAYS. 07/28/19 12:50 Urine - Urine Clean Catch Urine Culture - Final Lactose Fermenting Neg Bacilli a/p hepatitis- ?hep A transaminases trending down, inr is stable will follow ebv/cmv serology shows old disease heart failure- per cardiology constipation d/w infection control nurse- she will contact [facility]
--- NOTE | 2019-08-01 13:28 | PN ---
Teaching Attending Note Name of Resident: Yessica Thakur ATTENDING PHYSICIAN STATEMENT I saw and evaluated the patient. I reviewed the resident's note and discussed the case with the resident. I agree with the resident's findings and plan as documented. SUBJECTIVE: no pain , no fever or chills. No pain . No GARCIA . no SOB OBJECTIVE: NAD, awake, alert, cooperative HEENT: MMM + JVD. CV: RRR, no MRG Lungs: b/l basilar crackles Abd: soft, NT, ND, NL BS Ext: No edema , no erythema ASSESSMENT AND PLAN: 89 y/o lady with h/o HTN, HLP, Hysterectomy who presented with fever , chills x 1 -2 weeks and was found to have transaminitis . 1- New onset acute systolic heart failure: with severely reduced EF. - cause is unknown. ? viral cardiomyositis. need to r/o ischemic cardiomyopathy. - cont lasix as she continue to look volume overloaded - cont coreg - will d/w card the need for life vest before dc given her EF is 20-25% - will need R/L heart cath at some point - hold MARCO/ARB for now. - RVP pending 2- Acute transaminitis: still uncelar etiolgoy? congestive hepatopathy, VS viral ( hep A) Vs other stable LFTS - cont supportive measures - EBV is a previous infection. d/w ID - cont to hold statin and fibrates - Will resume Proxitine at a lower dose 30 . d/w Dr. Madison 3- CHELSEA: probably prerenal azotemia( cardio-renal sx ) . It improved with diuresis , and itis unlikely to be hepatorenal sx. case d/w Dr. Madison who is concerned about hepatorenal sx - will get renal eval - monitor NA level with diuresis , pt is asymptomatic - cont to hold losartan 4- SIRS, no source of bacterial infection. - hold off abx - follow blood cx ( neg to date ) 5- H/o HTN: hold losratan due to CHELSEA. cont coreg .monitor BP 6- DVT PX : heparin SQ ASSESSMENT AND PLAN:
[2019-08-01 14:26] LABS: CALCIUM 7.7 mg/dL (8.5-10.1); CREATININE 1.2 mg/dL (0.55-1.3)
--- NOTE | 2019-08-01 14:40 | PN ---
Progress Note (short form) - Note Progress Note: s: no cp palps dizzy; sob better Vital Signs Period Temp Pulse Resp BP Sys/Daniels Pulse Ox Last 24 Hr 97.4 F-98.9 F 89-93 17-18 108-129/59-79 100-100 nad no jvd rrr s1s2 no mrg cta bl nl ef aao3 no le e/c/c abd nt nd pos bs no jaundice diaphoresis Current Medications Generic Name Dose Route Start Last Admin Trade Name Freq PRN Reason Stop Dose Admin Carvedilol 3.125 mg 07/29/19 22:00 08/01/19 09:01 Coreg - PO 3.125 mg BID MASOOD Administration Furosemide 40 mg 07/29/19 16:00 08/01/19 09:01 Lasix Injection - IVPUSH 40 mg DAILY MASOOD Administration Heparin Sodium (Porcine) 5,000 unit 07/29/19 06:00 08/01/19 13:21 Heparin - SQ 5,000 unit TID MASOOD Administration Paroxetine HCl 30 mg 08/02/19 10:00 Paxil - PO DAILY MASOOD CBC, BMP 08/01/19 06:40 08/01/19 12:41 ecg: sr lbbb cxr: clear lungs echo 07/2019: lvef 20-25, global hk, nl rv, sev tr, mild lae, mod mr, rvsp 40- 50 a/p: 89 f hx hld, ckd (bl 1.2), here with sob. sob, acute systolic chf: -no known hx hrt dz but echo here showing reduced lvef and sev tr -seems that pt has component of vol overload with hepatic congestion causing elevated lfts (also possible from hep A) -has been getting lasix 40 iv qd with improvement in cr and sob. monitor daily wts, chemistry (renal consulted for hyponatremia) -started coreg for chf regimen. hold off on jarvis/arb until cr/lytes more stable. hld: -statin held 2/2 elevated lfts sree on ckd: -monitor cr with diuresis, possibly cardiorenal as cr improved with lasix abnl ecg: -lbbb likely due to sev dec lvef. ischemic w/u when vol status improved.
[2019-08-01] MEDS ORDERED: GLYCERIN 1 RECTAL SUPPOSITORY, ADULT PR PRN (15:18)
--- NOTE | 2019-08-01 15:49 | CONSULT ---
Consult Consult Specialty:: Nephrology Reason for Consultation:: hyponatremia - History of Present Illness Chief Complaint: shortness of breath History of Present Illness: Pt is an 89 year old female with pmhx of htn, chf and hld who presents with shortness of breath. She was initially given fluids. She later developed shortness of breath and was started on lasix. The diuretics did help her symptoms. I was called to evaluate her for hyponatremia. She denies headache or change in vision.. She denies fevers or chills. She denies dysuria or hematuria. Family are at bedside and assisted with history. - History Source History Provided By: Patient, Medical Record - Past Medical History Cardio/Vascular: Yes: HTN, Hyperlipdemia ...: No - Past Surgical History Past Surgical History: Yes: Hysterectomy (MOE/BSO) - Alcohol/Substance Use Hx Alcohol Use: No History of Substance Use: reports: None - Smoking History Smoking history: Never smoked Have you smoked in the past 12 months: No - Social History Usual Living Arrangement: With Child ADL: Independent Occupation: Retired Security Analyst History of Recent Travel: No Home Medications - Allergies Allergies/Adverse Reactions: Allergies Allergy/AdvReac Type Severity Reaction Status Date / Time metoclopramide [From Reglan] Allergy Verified 07/28/19 11:40 prochlorperazine Allergy Verified 07/28/19 11:39 [From Compazine] - Home Medications Home Medications: Ambulatory Orders Amoxicillin - [Amoxicillin 500mg Capsule -] 500 mg PO TID 07/28/19 Aspirin [Children's Aspirin] 81 mg PO DAILY 07/28/19 Fenofibrate Nanocrystallized [Fenofibrate] 145 mg PO DAILY 07/28/19 Losartan Potassium 50 mg PO DAILY 07/28/19 Lovastatin 20 mg PO DAILY 07/28/19 Paroxetine HCl 40 mg PO DAILY 07/28/19 Zolpidem Tartrate 10 mg PO DAILY 07/28/19 Family Medical History Family History: Denies Review of Systems - Review of Systems Constitutional: reports: Malaise Eyes: reports: No Symptoms HENT: reports: No Symptoms Neck: reports: No Symptoms Cardiovascular: reports: Edema Respiratory: reports: SOB, SOB on Exertion Gastrointestinal: reports: No Symptoms Genitourinary: reports: No Symptoms Musculoskeletal: reports: No Symptoms Integumentary: reports: No Symptoms Neurological: reports: No Symptoms Endocrine: reports: No Symptoms Hematology/Lymphatic: reports: No Symptoms Psychiatric: reports: No Symptoms Physical Exam Vital Signs: Vital Signs Temperature 97.8 F 08/01/19 14:36 Pulse Rate 72 08/01/19 14:36 Respiratory Rate 20 08/01/19 14:36 Blood Pressure 107/63 08/01/19 14:36 O2 Sat by Pulse Oximetry (%) 100 08/01/19 09:00 Constitutional: Yes: Calm Eyes: Yes: Conjunctiva Clear HENT: Yes: Atraumatic Neck: Yes: Supple Cardiovascular: Yes: S1, S2 Respiratory: Yes: CTA Bilaterally Gastrointestinal: Yes: Soft Renal/: Yes: WNL Musculoskeletal: Yes: WNL Edema: Yes Edema: LLE: Trace, RLE: Trace Neurological: Yes: Oriented Psychiatric: Yes: Oriented Labs: CBC, BMP 08/01/19 06:40 08/01/19 12:41 Laboratory Tests 07/29/19 07/30/19 07/31/19 07:00 06:20 06:20 Sodium 132 L 127 L Potassium MAC[facility]IO Screen Negative 08/01/19 08/01/19 06:40 12:41 Sodium 123 L 124 L Potassium 4.0 [facility]IO Screen Imaging - Results Chest X-ray: Report Reviewed Problem List - Problems (1) Hyponatremia Code(s): E87.1 - HYPO-OSMOLALITY AND HYPONATREMIA (2) Abnormal liver enzymes Code(s): R74.8 - ABNORMAL LEVELS OF OTHER SERUM ENZYMES (3) New onset of congestive heart failure Code(s): I50.9 - HEART FAILURE, UNSPECIFIED Assessment/Plan Current Medications Generic Name Dose Route Start Last Admin Trade Name Freq PRN Reason Stop Dose Admin Carvedilol 3.125 mg 07/29/19 22:00 08/01/19 09:01 Coreg - PO 3.125 mg BID MASOOD Administration Furosemide 40 mg 07/29/19 16:00 08/01/19 09:01 Lasix Injection - IVPUSH 40 mg DAILY [facility]OOD Administration Glycerin 1 each 08/01/19 15:18 Glycerin Suppository Adult - [place] DAILY PRN CONSTIPATION Heparin Sodium (Porcine) 5,000 unit 07/29/19 06:00 08/01/19 13:21 Heparin - SQ 5,000 unit TID MASOOD Administration Paroxetine HCl 30 mg 08/02/19 10:00 Paxil - PO DAILY [facility] Impression 1. hyponatremia 2. chf 3. transaminitis 4. hld Plan - cont with lasix - restrict free water - etiology of hyponatremia likely chf howeve will order workup - check serum and urine osm - check urine sodium - discussed with medical team - avoid fluids - will follow
--- NOTE | 2019-08-01 16:16 | PN ---
Physical Exam: SUBJECTIVE: Patient seen and examined. She reports ARANA is improved when ambulating to and from bathroom. She denies chest pain, abdominal pain, n/v/d. She denies lower extremity leg swelling. This afternoon, pt reports sore throat and constipation. OBJECTIVE: Vital Signs Period Temp Pulse Resp BP Sys/Daniels Pulse Ox Last 24 Hr 97.4 F-98.9 F 72-93 17-20 107-129/59-79 100-100 GENERAL: The patient is awake, alert, and fully oriented, in no acute distress. HEAD: Normal with no signs of trauma. EYES: PERRL, extraocular movements intact, conjunctiva clear. ENT: Ears normal, nares patent, moist mucous membranes. NECK: Trachea midline, full range of motion, supple. LUNGS: Bilateral basilar crackles HEART: Regular rate and rhythm, no murmur appreciated ABDOMEN: Soft, nontender, nondistended, normoactive bowel sounds, no guarding EXTREMITIES: Warm, well-perfused, no edema. NEUROLOGICAL: Cranial nerves II through XII grossly intact. Normal speech PSYCH: Normal mood, normal affect. SKIN: Warm, dry, normal turgor Laboratory Results - last 24 hr 07/30/19 08/01/19 08/01/19 06:20 06:40 06:40 WBC RBC Hgb Hct MCV MCH MCHC RDW Plt Count MPV Absolute Neuts (auto) Neutrophils % Lymphocytes % Monocytes % Eosinophils % Basophils % Nucleated RBC % PT with INR 22.20 H INR 1.87 H Sodium 123 L Potassium 5.1 Chloride 90 L Carbon Dioxide 26 Anion Gap 7 L BUN 41.4 H Creatinine 1.3 Est GFR (CKD-EPI)AfAm 42.42 Est GFR (CKD-EPI)NonAf 36.60 Random Glucose 220 H Lactic Acid Calcium 8.7 Total Bilirubin 2.0 H Direct Bilirubin 1.4 H AST 1523 H ALT 1666 H Alkaline Phosphatase 111 Total Protein 6.1 L Albumin 3.1 L Tumor Marker AFP 2.9 08/01/19 08/01/19 08/01/19 06:40 12:41 14:40 WBC 14.7 H RBC 4.78 Hgb 12.7 Hct 39.7 MCV 82.9 MCH 26.6 MCHC 32.0 RDW 14.5 Plt Count 270 MPV 8.9 Absolute Neuts (auto) 11.4 H Neutrophils % 77.7 Lymphocytes % 12.0 Monocytes % 9.8 Eosinophils % 0.1 Basophils % 0.4 Nucleated RBC % 1 H PT with INR INR Sodium 124 L Potassium 4.0 Chloride 87 L Carbon Dioxide 24 Anion Gap 12 BUN 38.0 H Creatinine 1.2 Est GFR (CKD-EPI)AfAm 46.73 Est GFR (CKD-EPI)NonAf 40.32 Random Glucose 302 H Lactic Acid 4.4 H* Calcium 7.7 L Total Bilirubin Direct Bilirubin AST ALT Alkaline Phosphatase Total Protein Albumin Tumor Marker AFP Active Medications Generic Name Dose Route Start Last Admin Trade Name Freq PRN Reason Stop Dose Admin Carvedilol 3.125 mg 07/29/19 22:00 08/01/19 09:01 Coreg - PO 3.125 mg BID MASOOD Administration Furosemide 40 mg 07/29/19 16:00 08/01/19 09:01 Lasix Injection - IVPUSH 40 mg DAILY [facility]OOD Administration Glycerin 1 each 08/01/19 15:18 Glycerin Suppository Adult - [place] DAILY PRN CONSTIPATION Heparin Sodium (Porcine) 5,000 unit 07/29/19 06:00 08/01/19 13:21 Heparin - SQ 5,000 unit TID MASOOD Administration Paroxetine HCl 30 mg 08/02/19 10:00 Paxil - PO DAILY [facility] ASSESSMENT/PLAN: Ms. Fagan is an 89y/o female with HTN and HLD who presents with progressive shortness of breath and fatigue. Per daughter, the patient has become increasingly dyspneic on exertion over the last several months and especially in the last week. Pt was initially febrile and had leukocytosis but fever resolved and white count is borderline normal. Pt was found to have severe transaminitis and lactic acidosis. Echo showed LVH with EF 20-25% and RV pressure 40-50 with severe TR. #acute HFrEF Unknown if pt has previous hx of heart failure due to lack of follow up. -Lasix 40mg IV -life vest recommended at discharge #transaminitis possibly 2/2 congestion vs cardiorenal syndrome vs viral Improved from yesterday but has improved and worsened during hospital course. -GI following- paroxetine may be causing transaminitis so recommend discontinuing -will taper paroxetine given sudden stopping may cause withdrawal- decrease to 30mg -Hep A indeterminate- can repeat lab in a few weeks -ID following -nephrology following #hyponatremia 123. -water restriction #constipation -glycerine suppository #HTN -carvedilol 3.125mg DVT Ppx heparin FEN fluid restriction monitor Na Na restricted diet Visit type - Emergency Visit Emergency Visit: Yes ED Registration Date: 07/28/19 Care time: The patient presented to the Emergency Department on the above date and was hospitalized for further evaluation of their emergent condition. - New Patient This patient is new to me today: Yes Date on this admission: 08/01/19 - Critical Care Critical Care patient: No - Discharge Referral Referred to [facility] Med P.C.: No ATTENDING PHYSICIAN STATEMENT I saw and evaluated the patient. I reviewed the resident's note and discussed the case with the resident. I agree with the resident's findings and plan as documented. SUBJECTIVE: OBJECTIVE: ASSESSMENT AND PLAN:
--- NOTE | 2019-08-01 19:34 | PN.GI ---
GI Progress Note Subjective: GI NOte: Has no GI complaints. LFTs have plateaued but not improved. The INR has slightly improved. Creatinine stable but BUN rising likely due to diuretics. Hepatitis A IgM indeterminant. Not clear whether the total hepatitis Ab is predominantly IgM or IgG. The latter would indicate immunity. - Objective Vital Signs: Vital Signs Temperature 97.8 F 08/01/19 14:36 Pulse Rate 72 08/01/19 14:36 Respiratory Rate 20 08/01/19 14:36 Blood Pressure 107/63 08/01/19 14:36 O2 Sat by Pulse Oximetry (%) 100 08/01/19 09:00 Laboratory Tests 07/28/19 07/29/19 07/29/19 14:39 07:00 07:00 PT with INR 20.30 H Ferritin Total Bilirubin Direct Bilirubin AST ALT MACARIO Screen Smooth [employer] &HEAVY EQUIPMENT OPERATOR APPRENTICE Intrp CMV IgM Ab Hep A IgM Ab Confirm Indeterminate H Hepatitis A Ab Total Positive H Hep Bs Antigen Negative Hep Bs Antibody Non reactive Hep B Core Total Ab Negative Hep B Core IgM Ab Negative Hepatitis Be Antibody Negative Hepatitis Be Antigen Negative Hepatitis C Ab (EIA) 0.1 07/29/19 07/29/19 07/29/19 07:00 07:00 11:45 PT with INR Ferritin Total Bilirubin Direct Bilirubin AST ALT MAC[facility]IO Screen Negative Smooth [employer] &HEAV[employer] EQUIPMENT OPERATOR APPRENTICE Intrp 10 CMV IgM Ab < 30.0 Hep A IgM Ab Confirm Hepatitis A Ab Total Hep Bs Antigen Hep Bs Antibody Hep B Core Total Ab Hep B Core IgM Ab Hepatitis Be Antibody Hepatitis Be Antigen Hepatitis C Ab (EIA) 07/30/19 07/30/19 07/31/19 06:20 06:20 06:20 PT with INR 19.70 H Ferritin 60.5 Total Bilirubin 2.0 H Direct Bilirubin 1.2 H AST 1659 H ALT 1764 H MACARIO Screen Smooth [employer] &HEAV[employer] EQUIPMENT OPERATOR APPRENTICE Intrp CMV IgM Ab Hep A IgM Ab Confirm Hepatitis A Ab Total Hep Bs Antigen Hep Bs Antibody Hep B Core Total Ab Hep B Core IgM Ab Hepatitis Be Antibody Hepatitis Be Antigen Hepatitis C Ab (EIA) 07/31/19 08/01/19 08/01/19 06:20 06:40 06:40 PT with INR 23.70 H 22.20 H Ferritin Total Bilirubin 2.0 H Direct Bilirubin 1.4 H AST 1523 H ALT 1666 H MACARIO Screen Sm[employer] &HEAV[employer] EQUIPMENT OPERATOR APPRENTICE Intrp CMV IgM Ab Hep A IgM Ab Confirm Hepatitis A Ab Total Hep Bs Antigen Hep Bs Antibody Hep B Core Total Ab Hep B Core IgM Ab Hepatitis Be Antibody Hepatitis Be Antigen Hepatitis C Ab (EIA) Constitutional: Calm ...Auscultate: Yes: Normoactive Bowel Sounds ...Palpate: Yes: Soft, Other (nontender) Labs: CBC, BMP 08/01/19 06:40 08/01/19 12:41 INR, PTT INR 1.87 (0.83-1.09) H 08/01/19 06:40 Assessment/Plan Assessment: -- Suspect congestive hepatopathy -- Cannot exclude acute hepatitis A. Will contact lab to see how the IgG and IgM fractionate -- Silent gallstones Plan: -- Await MRCP -- Repeat Hep A studies -- Anticipate improvement with afterload reduction -- Agree with need for renal sales support consultant I discussed the case with Dr Wade Problem List - Problems (1) Hepatic congestion Code(s): K76.1 - CHRONIC PASSIVE CONGESTION OF LIVER (2) Hepatitis A antibody positive Code(s): R76.8 - OTHER SPECIFIED ABNORMAL IMMUNOLOGICAL FINDINGS IN SERUM (3) Abnormal liver enzymes Code(s): R74.8 - ABNORMAL LEVELS OF OTHER SERUM ENZYMES (4) Hypertension Code(s): I10 - ESSENTIAL (PRIMARY) HYPERTENSION (5) Hyperlipidemia Code(s): E78.5 - HYPERLIPIDEMIA, UNSPECIFIED (6) New onset of congestive heart failure Code(s): I50.9 - HEART FAILURE, UNSPECIFIED
[2019-08-01] MEDS ORDERED: PHYTONADIONE 10 MG/1 ML AMP IVPB ONE (19:39)
[2019-08-01] MEDS ORDERED: PT OWN MED DRAWER 7, Y5N ONE (20:47)
[2019-08-02] MEDS: HEPARIN NA (PORCINE) 5,000 UNITS/ML 1ML VIAL SQ SCH ×3 (05:35→21:51)
[2019-08-02 08:14] LABS: HEMATOCRIT 38.1 % (32.4-45.2); HEMOGLOBIN 12.1 GM/dL (10.7-15.3); MCHC 31.7 g/dl (32.0-36.0); MEAN CELL VOLUME 82.3 fl (80-96); MEAN PLT VOLUME 8.8 fl (7.5-11.1); PLATELET COUNT 311 K/MM3 (134-434); RBC 4.63 M/mm3 (3.60-5.2); WHITE BLOOD COUNT 14.2 K/mm3 (4.0-10.0)
[2019-08-02 08:20] LABS: ALBUMIN 2.8 g/dl (3.4-5.0); BILIRUBIN,DIRECT 1.2 mg/dL (0.0-0.2); BLOOD UREA NITROGEN 39.9 mg/dL (7-18); CALCIUM 8.3 mg/dL (8.5-10.1); CREATININE 1.2 mg/dL (0.55-1.3); POTASSIUM 4.3 mmol/L (3.5-5.1); TOT PROT 5.7 g/dl (6.4-8.2)
[2019-08-02 08:30] LABS: INR 1.64 (0.83-1.09); PROTHROMBIN TIME (PATIENT) 19.4 SEC (9.7-13.0)
[2019-08-02] MEDS: PANTOPRAZOLE 40 MG TABLET (FP) PO SCH (09:18)
[2019-08-02] MEDS: CARVEDILOL 3.125 MG TABLET (FP) PO SCH ×2 (09:18→21:51)
[2019-08-02] MEDS: PARoxetine HCL 10 MG TABLET PO SCH (09:18)
[2019-08-02] MEDS: FUROSEMIDE 40 MG/4 ML INJECTABLE VIAL IVPUSH SCH (09:18)
--- NOTE | 2019-08-02 12:46 | PN ---
Progress Note (short form) - Note Progress Note: s: no chest pain, palps, dizziness, dyspnea Vital Signs Period Temp Pulse Resp BP Sys/Daniels Pulse Ox Last 24 Hr 97.8 F-98.2 F 70-93 20-20 107-130/63-82 99-100 nad no jvd rrr s1s2 no mrg cta bl nl ef aao3 no le e/c/c abd nt nd pos bs no jaundice diaphoresis Current Medications Carvedilol (Coreg -) 3.125 mg PO BID [facility] Last Admin: 08/02/19 09:18 Dose: 3.125 mg Furosemide (Lasix Injection -) 40 mg IVPUSH DAILY [facility] Last Admin: 08/02/19 09:18 Dose: 40 mg Glycerin (Glycerin Suppository Adult -) 1 each [place] DAILY PRN PRN Reason: CONSTIPATION Last Admin: 08/01/19 18:08 Dose: 1 each Heparin Sodium (Porcine) (Heparin -) 5,000 unit SQ TID [facility] Last Admin: 08/02/19 05:35 Dose: 5,000 unit Pantoprazole Sodium (Protonix -) 40 mg PO DAILY [facility] Last Admin: 08/02/19 09:18 Dose: 40 mg Paroxetine HCl (Paxil -) 30 mg PO DAILY [facility] Last Admin: 08/02/19 09:18 Dose: 30 mg ecg: sr lbbb cxr: clear lungs echo 07/2019: lvef 20-25, global hk, nl rv, sev tr, mild lae, mod mr, rvsp 40- 50 a/p: 89 f hx hld, ckd (bl 1.2), here with sob. sob, acute systolic chf: -no known hx hrt dz but echo here showing reduced lvef and sev tr -seems that pt has component of vol overload with hepatic congestion causing elevated lfts (also possible from hep A) -has been getting lasix 40 iv qd with improvement in cr and sob, LFTs coming down as well. monitor daily wts, chemistry (renal consulted for hyponatremia), cont current lasix -started coreg for chf regimen. hold off on jarvis/arb until cr/lytes more stable. hld: -statin held 2/2 elevated lfts sree on ckd: -monitor cr with diuresis, possibly cardiorenal as cr improved with lasix abnl ecg: -lbbb likely due to sev dec lvef. ischemic w/u when vol status improved.
--- NOTE | 2019-08-02 14:17 | PN ---
Physical Exam: SUBJECTIVE: Patient seen and examined. She reports shortness of breath is about the same as yesterday. She denies chest pain, abdominal pain, n/v/d. OBJECTIVE: Vital Signs Period Temp Pulse Resp BP Sys/Daniels Pulse Ox Last 24 Hr 97.8 F-98.2 F 70-93 20-20 107-130/63-82 99-100 GENERAL: The patient is awake, alert, and fully oriented, in no acute distress. HEAD: Normal with no signs of trauma. EYES: PERRL, extraocular movements intact, conjunctiva clear. ENT: Ears normal, nares patent, moist mucous membranes. NECK: Trachea midline, full range of motion, supple. LUNGS: Bilateral basilar crackles HEART: Regular rate and rhythm, no murmur appreciated ABDOMEN: Soft, nontender, nondistended, normoactive bowel sounds, no guarding EXTREMITIES: Warm, well-perfused, no edema. NEUROLOGICAL: Cranial nerves II through XII grossly intact. Normal speech PSYCH: Normal mood, normal affect. SKIN: Warm, dry, normal turgor anderson 2100cc yesterday Laboratory Results - last 24 hr 07/30/19 08/01/19 08/01/19 06:20 12:41 14:40 WBC RBC Hgb Hct MCV MCH MCHC RDW Plt Count MPV PT with INR INR Sodium 124 L Potassium 4.0 Chloride 87 L Carbon Dioxide 24 Anion Gap 12 BUN 38.0 H Creatinine 1.2 Est GFR (CKD-EPI)AfAm 46.73 Est GFR (CKD-EPI)NonAf 40.32 Random Glucose 302 H Serum Osmolality Lactic Acid 4.4 H* Calcium 7.7 L Total Bilirubin Direct Bilirubin AST ALT Alkaline Phosphatase Ammonia LD Total 881 H Total Protein Albumin LDL 1 Fraction 7.0 L LDL 2 Fraction 13.0 L LDL 3 Fraction 11.0 L LDL 4 Fraction 8.0 LDL 5 Fraction 61.0 H TSH Urine Osmolality Ur Random Sodium Ur Random Potassium Ur Random Chloride Hep A IgM Ab Confirm Hepatitis A Ab Total 08/01/19 08/01/19 08/02/19 16:00 16:00 06:15 WBC RBC Hgb Hct MCV MCH MCHC RDW Plt Count MPV PT with INR INR Sodium 125 L Potassium 4.3 Chloride 88 L Carbon Dioxide 25 Anion Gap 12 BUN 39.9 H Creatinine 1.2 Est GFR (CKD-EPI)AfAm 46.73 Est GFR (CKD-EPI)NonAf 40.32 Random Glucose 222 H Serum Osmolality Lactic Acid Calcium 8.3 L Total Bilirubin 2.0 H Direct Bilirubin 1.2 H AST 998 H ALT 1280 H Alkaline Phosphatase 106 Ammonia LD Total Total Protein 5.7 L Albumin 2.8 L LDL 1 Fraction LDL 2 Fraction LDL 3 Fraction LDL 4 Fraction LDL 5 Fraction TSH Urine Osmolality 391 Ur Random Sodium 11 L Ur Random Potassium 16.0 L Ur Random Chloride < 11 L Hep A IgM Ab Confirm Hepatitis A Ab Total 08/02/19 08/02/19 08/02/19 06:15 06:15 06:15 WBC 14.2 H RBC 4.63 Hgb 12.1 Hct 38.1 MCV 82.3 MCH 26.0 MCHC 31.7 L RDW 15.0 Plt Count 311 MPV 8.8 PT with INR 19.40 H INR 1.64 H Sodium Potassium Chloride Carbon Dioxide Anion Gap BUN Creatinine Est GFR (CKD-EPI)AfAm Est GFR (CKD-EPI)NonAf Random Glucose Serum Osmolality 284 Lactic Acid Calcium Total Bilirubin Direct Bilirubin AST ALT Alkaline Phosphatase Ammonia LD Total Total Protein Albumin LDL 1 Fraction LDL 2 Fraction LDL 3 Fraction LDL 4 Fraction LDL 5 Fraction TSH 1.86 Urine Osmolality Ur Random Sodium Ur Random Potassium Ur Random Chloride Hep A IgM Ab Confirm Hepatitis A Ab Total 08/02/19 08/02/19 06:15 06:15 WBC RBC Hgb Hct MCV MCH MCHC RDW Plt Count MPV PT with INR INR Sodium Potassium Chloride Carbon Dioxide Anion Gap BUN Creatinine Est GFR (CKD-EPI)AfAm Est GFR (CKD-EPI)NonAf Random Glucose Serum Osmolality Lactic Acid Calcium Total Bilirubin Direct Bilirubin AST ALT Alkaline Phosphatase Ammonia 13.20 LD Total Total Protein Albumin LDL 1 Fraction LDL 2 Fraction LDL 3 Fraction LDL 4 Fraction LDL 5 Fraction TSH Urine Osmolality Ur Random Sodium Ur Random Potassium Ur Random Chloride Hep A IgM Ab Confirm Cancelled Hepatitis A Ab Total Cancelled Active Medications Generic Name Dose Route Start Last Admin Trade Name Freq PRN Reason Stop Dose Admin Carvedilol 3.125 mg 07/29/19 22:00 08/02/19 09:18 Coreg - PO 3.125 mg BID [facility]OOD Administration Furosemide 40 mg 07/29/19 16:00 08/02/19 09:18 Lasix Injection - IVPUSH 40 mg DAILY [facility] Administration Glycerin 1 each 08/01/19 15:18 08/01/19 18:08 Glycerin Suppository Adult - [place] 1 each DAILY PRN Administration CONSTIPATION Heparin Sodium (Porcine) 5,000 unit 07/29/19 06:00 08/02/19 14:05 Heparin - SQ 5,000 unit TID MASOOD Administration Pantoprazole Sodium 40 mg 08/02/19 10:00 08/02/19 09:18 Protonix - PO 40 mg DAILY [facility] Administration Paroxetine HCl 30 mg 08/02/19 10:00 08/02/19 09:18 Paxil - PO 30 mg DAILY [facility] Administration ASSESSMENT/PLAN: Ms. Fagan is an 89y/o female with HTN and HLD who presents with progressive shortness of breath and fatigue. Per daughter, the patient has become increasingly dyspneic on exertion over the last several months and especially in the last week. Pt was initially febrile and had leukocytosis but fever resolved and white count is borderline normal. Pt was found to have severe transaminitis and lactic acidosis. Echo showed LVH with EF 20-25% and RV pressure 40-50 with severe TR. #acute HFrEF Unknown if pt has previous hx of heart failure due to lack of follow up. -Lasix 40mg IV -in pt stress test after fluid improvement #transaminitis possibly 2/2 congestion vs cardiorenal syndrome Improved from yesterday but has improved and worsened during hospital course. -GI following- paroxetine may be causing transaminitis so recommend discontinuing -will taper paroxetine given sudden stopping may cause withdrawal- decrease to 30mg -acute hep A negative (IgG present) -ID following -nephrology following -MRI #hyponatremia likely 2/2 HF 123. -water restriction #constipation -glycerine suppository #HTN -carvedilol 3.125mg DVT Ppx heparin FEN fluid restriction monitor Na Na restricted diet Visit type - Emergency Visit Emergency Visit: Yes ED Registration Date: 07/28/19 Care time: The patient presented to the Emergency Department on the above date and was hospitalized for further evaluation of their emergent condition. - New Patient This patient is new to me today: No - Critical Care Critical Care patient: No - Discharge Referral Referred to [facility] Med P.C.: No ATTENDING PHYSICIAN STATEMENT I saw and evaluated the patient. I reviewed the resident's note and discussed the case with the resident. I agree with the resident's findings and plan as documented. SUBJECTIVE: OBJECTIVE: ASSESSMENT AND PLAN:
--- NOTE | 2019-08-02 15:43 | PN ---
Teaching Attending Note Name of Resident: Yessica Thakur ATTENDING PHYSICIAN STATEMENT I saw and evaluated the patient. I reviewed the resident's note and discussed the case with the resident. I agree with the resident's findings and plan as documented. SUBJECTIVE: No pain or SOB . no CP . OBJECTIVE: NAD, awake, alert, cooperative HEENT: MMM + JVD. CV: RRR, no MRG Lungs: b/l basilar cracklesbut much improved compared to yesterday Abd: soft, NT, ND, NL BS Ext: trace edema ASSESSMENT AND PLAN: 89 y/o lady with h/o HTN, HLP, Hysterectomy who presented with fever , chills x 1 -2 weeks and was found to have transaminitis . 1- New onset acute systolic heart failure: with severely reduced EF. - cause is unknown. ? viral cardiomyositis. need to r/o ischemic cardiomyopathy. - cont lasix - cont coreg. - ? life vest before dc given her EF is 20-25% - will need R/L heart cath at some point - hold MARCO/ARB for now. - RVP pending 2- Acute transaminitis: still unclear etiology? congestive hepatopathy, VS viral ( hep A) Vs other stable LFTS - cont supportive measures - EBV is a previous infection. d/w ID - cont to hold statin and fibrates - cont Paroxitine at a lower dose 30. 3- CHELSEA: probably prerenal azotemia ( cardio-renal sx ) . - cont diuresis - cont to hold losartan . if renal function remains stable, then might start a low dose 4- SIRS, no source of bacterial infection. 5- H/o HTN: hold losratan . cont coreg .monitor BP 6- DVT PX : heparin SQ
--- NOTE | 2019-08-02 17:12 | PN ---
Progress Note, Physician History of Present Illness: Pt seen and examined at bedside. She is awake and alert. She denies shortness of breath. - Current Medication List Current Medications: Active Medications Carvedilol (Coreg -) 3.125 mg PO BID [facility] Last Admin: 08/02/19 09:18 Dose: 3.125 mg Furosemide (Lasix Injection -) 40 mg IVPUSH DAILY [facility] Last Admin: 08/02/19 09:18 Dose: 40 mg Glycerin (Glycerin Suppository Adult -) 1 each [place] DAILY PRN PRN Reason: CONSTIPATION Last Admin: 08/01/19 18:08 Dose: 1 each Heparin Sodium (Porcine) (Heparin -) 5,000 unit SQ TID [facility] Last Admin: 08/02/19 14:05 Dose: 5,000 unit Pantoprazole Sodium (Protonix -) 40 mg PO DAILY [facility] Last Admin: 08/02/19 09:18 Dose: 40 mg Paroxetine HCl (Paxil -) 30 mg PO DAILY [facility] Last Admin: 08/02/19 09:18 Dose: 30 mg - Objective Vital Signs: Vital Signs Temperature 97.5 F L 08/02/19 15:03 Pulse Rate 77 08/02/19 15:03 Respiratory Rate 20 08/02/19 15:03 Blood Pressure 137/73 08/02/19 15:03 O2 Sat by Pulse Oximetry (%) 99 08/02/19 09:00 Constitutional: Yes: Calm Eyes: Yes: Conjunctiva Clear HENT: Yes: Atraumatic Neck: Yes: Supple Cardiovascular: Yes: S1, S2 Respiratory: Yes: CTA Bilaterally Gastrointestinal: Yes: Soft Genitourinary: Yes: WNL Musculoskeletal: Yes: WNL Edema: Yes Edema: LLE: Trace, RLE: Trace Neurological: Yes: Oriented Psychiatric: Yes: Oriented Labs: CBC, BMP 08/02/19 06:15 08/02/19 06:15 INR, PTT INR 1.64 (0.83-1.09) H 08/02/19 06:15 Problem List - Problems (1) Hyponatremia Code(s): E87.1 - HYPO-OSMOLALITY AND HYPONATREMIA (2) Abnormal liver enzymes Code(s): R74.8 - ABNORMAL LEVELS OF OTHER SERUM ENZYMES (3) New onset of congestive heart failure Code(s): I50.9 - HEART FAILURE, UNSPECIFIED Assessment/Plan Current Medications Generic Name Dose Route Start Last Admin Trade Name Freq PRN Reason Stop Dose Admin Carvedilol 3.125 mg 07/29/19 22:00 08/02/19 09:18 Coreg - PO 3.125 mg BID [facility] Administration Furosemide 40 mg 07/29/19 16:00 08/02/19 09:18 Lasix Injection - IVPUSH 40 mg DAILY [facility] Administration Glycerin 1 each 08/01/19 15:18 08/01/19 18:08 Glycerin Suppository Adult - [place] 1 each DAILY PRN Administration CONSTIPATION Heparin Sodium (Porcine) 5,000 unit 07/29/19 06:00 08/02/19 14:05 Heparin - SQ 5,000 unit TID [facility] Administration Pantoprazole Sodium 40 mg 08/02/19 10:00 08/02/19 09:18 Protonix - PO 40 mg DAILY [facility] Administration Paroxetine HCl 30 mg 08/02/19 10:00 08/02/19 09:18 Paxil - PO 30 mg DAILY [facility] Administration Laboratory Tests 08/01/19 08/02/19 08/02/19 16:00 06:15 06:15 TSH 1.86 Cortisol AM Sample Pending Urine Osmolality 391 Laboratory Tests 08/01/19 16:00 Ur Random Sodium 11 L Impression 1. hyponatremia 2. chf 3. transaminitis 4. hld Plan - cont lasix - restrict free water - discussed with family - sodium improving - etiology of hyponatremia likely chf - will follow
--- NOTE | 2019-08-02 18:02 | PN.GI ---
GI Progress Note Subjective: GI NOte: Leanna is feeling bloated and her daughter tells me that she has not moved her bowels in several days. Her LFTs and INR have begun to improve. I discussed the hepatitis A studies with the lab who contacted [facility] that informed us that her hepatitis A total Ab is all IgG indicative of immunity. I informed Leanna and her daughter. - Objective Vital Signs: Vital Signs Temperature 97.5 F L 08/02/19 15:03 Pulse Rate 77 08/02/19 15:03 Respiratory Rate 20 08/02/19 15:03 Blood Pressure 137/73 08/02/19 15:03 O2 Sat by Pulse Oximetry (%) 99 08/02/19 09:00 Laboratory Tests 07/28/19 07/28/19 07/29/19 12:50 14:20 07:00 PT with INR INR Ferritin Total Bilirubin 1.0 AST 3595 H 2755 H ALT 2175 H Ammonia Tumor Marker AFP 07/30/19 07/30/19 07/30/19 06:20 06:20 06:20 PT with INR INR Ferritin 60.5 Total Bilirubin 1.2 H AST 1759 H ALT Ammonia Tumor Marker AFP 2.9 07/31/19 08/01/19 08/01/19 06:20 06:40 06:40 PT with INR 22.20 H INR 1.87 H Ferritin Total Bilirubin 2.0 H AST 1523 H ALT 1764 H 1666 H Ammonia Tumor Marker AFP 08/02/19 08/02/19 08/02/19 06:15 06:15 06:15 PT with INR 19.40 H INR 1.64 H Ferritin Total Bilirubin 2.0 H AST 998 H ALT 1280 H Ammonia 13.20 Tumor Marker AFP Constitutional: No Distress Gastrointestinal Inspection: Yes: Distention ...Auscultate: Yes: Hypoactive Bowel Sounds ...Palpate: Yes: Soft, Other (nontender) ...Percussion: Yes: Tympanitic Labs: CBC, BMP 08/02/19 06:15 08/02/19 06:15 INR, PTT INR 1.64 (0.83-1.09) H 08/02/19 06:15 Assessment/Plan Assessment: -- Suspect congestive hepatopathy which is responding to afterload reduction -- Acute hepatitis A excluded by presence of IgG -- Silent gallstones -- Constipatiion due to hospital sedentary state Plan: -- Start Miralax -- Anticipate stedy improvement with afterload reduction I discussed the case with Dr Wade and Dr Salcedo Problem List - Problems (1) Hepatic congestion Code(s): K76.1 - CHRONIC PASSIVE CONGESTION OF LIVER (2) Hepatitis A antibody positive Code(s): R76.8 - OTHER SPECIFIED ABNORMAL IMMUNOLOGICAL FINDINGS IN SERUM (3) Abnormal liver enzymes Code(s): R74.8 - ABNORMAL LEVELS OF OTHER SERUM ENZYMES (4) Hypertension Code(s): I10 - ESSENTIAL (PRIMARY) HYPERTENSION (5) Hyperlipidemia Code(s): E78.5 - HYPERLIPIDEMIA, UNSPECIFIED (6) New onset of congestive heart failure Code(s): I50.9 - HEART FAILURE, UNSPECIFIED (7) Constipation Code(s): K59.00 - CONSTIPATION, UNSPECIFIED
[2019-08-02] MEDS: POLYETHYLENE GLYCOL 3350 119 GM BTL PO SCH (21:52)
[2019-08-03] MEDS: HEPARIN NA (PORCINE) 5,000 UNITS/ML 1ML VIAL SQ SCH ×3 (06:04→21:08)
[2019-08-03 07:51] LABS: ALBUMIN 2.9 g/dl (3.4-5.0); BILIRUBIN,TOTAL 1.7 mg/dL (0.2-1); BLOOD UREA NITROGEN 41.4 mg/dL (7-18); CALCIUM 8.5 mg/dL (8.5-10.1); CREATININE 1.2 mg/dL (0.55-1.3); POTASSIUM 4.8 mmol/L (3.5-5.1)
[2019-08-03 08:01] LABS: HEMATOCRIT 39.5 % (32.4-45.2); HEMOGLOBIN 12.5 GM/dL (10.7-15.3); INR 1.46 (0.83-1.09); MCH 26.1 pg (25.7-33.7); MCHC 31.8 g/dl (32.0-36.0); MEAN CELL VOLUME 82.1 fl (80-96); MEAN PLT VOLUME 8.6 fl (7.5-11.1); PLATELET COUNT 318 K/MM3 (134-434); PROTHROMBIN TIME (PATIENT) 17.3 SEC (9.7-13.0); RBC 4.81 M/mm3 (3.60-5.2); RDW 14.9 % (11.6-15.6); WHITE BLOOD COUNT 12.9 K/mm3 (4.0-10.0)
[2019-08-03] MEDS: FUROSEMIDE 40 MG/4 ML INJECTABLE VIAL IVPUSH SCH (09:51)
[2019-08-03] MEDS: PANTOPRAZOLE 40 MG TABLET (FP) PO SCH (09:51)
[2019-08-03] MEDS: PARoxetine HCL 10 MG TABLET PO SCH (09:52)
[2019-08-03] MEDS: CARVEDILOL 3.125 MG TABLET (FP) PO SCH ×2 (09:54→21:08)
[2019-08-03] MEDS: POLYETHYLENE GLYCOL 3350 119 GM BTL PO SCH ×2 (09:54→21:08)
[2019-08-03] MEDS ORDERED: PT OWN MED DRAWER 7, Y5N ONE (09:54)
--- NOTE | 2019-08-03 11:54 | PN.GI ---
GI Progress Note Subjective: GI NOte: Going for MRCP. No BM yet. LFTs continue to improve - Objective Vital Signs: Vital Signs Temperature 97.6 F 08/03/19 10:00 Pulse Rate 75 08/03/19 10:00 Respiratory Rate 18 08/03/19 10:00 Blood Pressure 112/67 08/03/19 10:00 O2 Sat by Pulse Oximetry (%) 99 08/02/19 20:29 Laboratory Tests 08/02/19 08/03/19 06:15 06:10 Total Bilirubin 2.0 H 1.7 H Direct Bilirubin 1.2 H 1.0 H AST 998 H 648 H ALT 1280 H 1080 H Alkaline Phosphatase 117 Constitutional: Calm Gastrointestinal Inspection: Yes: Distention ...Auscultate: Yes: Normoactive Bowel Sounds ...Palpate: Yes: Soft, Other (nontender) ...Percussion: Yes: Tympanitic Labs: CBC, BMP 08/03/19 06:10 08/03/19 06:10 INR, PTT INR 1.46 (0.83-1.09) H 08/03/19 06:10 Assessment/Plan Assessment: -- Congestive hepatopathy which is responding to afterload reduction -- Acute hepatitis A excluded by presence of IgG -- Silent gallstones -- Constipation due to hospital sedentary state Plan: -- Continue Miralax -- Anticipate steady hepatic improvement with afterload reduction -- Await MRCP results Problem List - Problems (1) Hepatic congestion Code(s): K76.1 - CHRONIC PASSIVE CONGESTION OF LIVER (2) Hepatitis A antibody positive Code(s): R76.8 - OTHER SPECIFIED ABNORMAL IMMUNOLOGICAL FINDINGS IN SERUM (3) Abnormal liver enzymes Code(s): R74.8 - ABNORMAL LEVELS OF OTHER SERUM ENZYMES (4) Hypertension Code(s): I10 - ESSENTIAL (PRIMARY) HYPERTENSION (5) Hyperlipidemia Code(s): E78.5 - HYPERLIPIDEMIA, UNSPECIFIED (6) New onset of congestive heart failure Code(s): I50.9 - HEART FAILURE, UNSPECIFIED (7) Constipation Code(s): K59.00 - CONSTIPATION, UNSPECIFIED
--- NOTE | 2019-08-03 12:01 | PN ---
Progress Note (short form) - Note Progress Note: s: no chest pain, palps, dizziness, dyspnea Vital Signs Period Temp Pulse Resp BP Sys/Daniels Pulse Ox Last 24 Hr 97.5 F-97.9 F 71-88 16-20 112-137/60-73 99 nad no jvd rrr s1s2 no mrg cta bl nl ef aao3 no le e/c/c abd nt nd pos bs no jaundice diaphoresis Current Medications Carvedilol (Coreg -) 3.125 mg PO BID [facility] Last Admin: 08/03/19 09:54 Dose: 3.125 mg Furosemide (Lasix Injection -) 40 mg IVPUSH DAILY [facility] Last Admin: 08/03/19 09:51 Dose: 40 mg Glycerin (Glycerin Suppository Adult -) 1 each [place] DAILY PRN PRN Reason: CONSTIPATION Last Admin: 08/01/19 18:08 Dose: 1 each Heparin Sodium (Porcine) (Heparin -) 5,000 unit SQ TID [facility] Last Admin: 08/03/19 06:04 Dose: 5,000 unit Pantoprazole Sodium (Protonix -) 40 mg PO DAILY [facility] Last Admin: 08/03/19 09:51 Dose: 40 mg Paroxetine HCl (Paxil -) 30 mg PO DAILY [facility] Last Admin: 08/03/19 09:52 Dose: 30 mg Polyethylene Glycol (Miralax (For Daily Use) -) 17 gm PO BID [facility] Last Admin: 08/03/19 09:54 Dose: 17 grams ecg: sr lbbb cxr: clear lungs echo 07/2019: lvef 20-25, global hk, nl rv, sev tr, mild lae, mod mr, rvsp 40- 50 a/p: 89 f hx hld, ckd (bl 1.2), here with sob. sob, acute systolic chf: -no known hx hrt dz but echo here showing reduced lvef and sev tr -seems that pt has component of vol overload with hepatic congestion causing elevated lfts (also possible from hep A) -has been getting lasix 40 iv qd with improvement in cr and sob, LFTs coming down as well - monitor daily wts, lytes - cont current lasix -started coreg for chf regimen. hold off on jarvis/arb until cr/lytes more stable. hld: -statin held 2/2 elevated lfts sree on ckd: -monitor cr with diuresis, possibly cardiorenal as cr improved with lasix abnl ecg: -lbbb likely due to sev dec lvef. ischemic w/u when euvolemic
--- NOTE | 2019-08-03 13:20 | PN ---
Physical Exam: SUBJECTIVE: Patient seen and examined. Pt reports shortness of breath is the same as yesterday, but she feels comfortable. No other complaints at this time. OBJECTIVE: Vital Signs Period Temp Pulse Resp BP Sys/Daniels Pulse Ox Last 24 Hr 97.5 F-97.9 F 71-88 16-20 112-137/60-73 99 GENERAL: The patient is awake, alert, and fully oriented, in no acute distress. HEAD: Normal with no signs of trauma. EYES: PERRL, extraocular movements intact, conjunctiva clear. ENT: Ears normal, nares patent, moist mucous membranes. NECK: Trachea midline, full range of motion, supple. LUNGS: Bilateral basilar crackles L>R HEART: Regular rate and rhythm, no murmur appreciated ABDOMEN: Soft, nontender, nondistended, normoactive bowel sounds, no guarding EXTREMITIES: Warm, well-perfused, no edema. NEUROLOGICAL: Cranial nerves II through XII grossly intact. Normal speech PSYCH: Normal mood, normal affect. SKIN: Warm, dry, normal turgor urine anderson 700cc Laboratory Results - last 24 hr 08/03/19 08/03/19 08/03/19 06:10 06:10 06:10 WBC 12.9 H RBC 4.81 Hgb 12.5 Hct 39.5 MCV 82.1 MCH 26.1 MCHC 31.8 L RDW 14.9 Plt Count 318 MPV 8.6 PT with INR 17.30 H INR 1.46 H Sodium 124 L Potassium 4.8 Chloride 88 L Carbon Dioxide 28 Anion Gap 7 L BUN 41.4 H Creatinine 1.2 Est GFR (CKD-EPI)AfAm 46.73 Est GFR (CKD-EPI)NonAf 40.32 Random Glucose 283 H Calcium 8.5 Total Bilirubin 1.7 H Direct Bilirubin 1.0 H AST 648 H ALT 1080 H Alkaline Phosphatase 117 Total Protein 6.0 L Albumin 2.9 L Active Medications Generic Name Dose Route Start Last Admin Trade Name Freq PRN Reason Stop Dose Admin Carvedilol 3.125 mg 07/29/19 22:00 08/03/19 09:54 Coreg - PO 3.125 mg BID [facility] Administration Furosemide 40 mg 07/29/19 16:00 08/03/19 09:51 Lasix Injection - IVPUSH 40 mg DAILY [facility] Administration Glycerin 1 each 08/01/19 15:18 08/01/19 18:08 Glycerin Suppository Adult - [place] 1 each DAILY PRN Administration CONSTIPATION Heparin Sodium (Porcine) 5,000 unit 07/29/19 06:00 08/03/19 06:04 Heparin - SQ 5,000 unit TID [facility] Administration Pantoprazole Sodium 40 mg 08/02/19 10:00 08/03/19 09:51 Protonix - PO 40 mg DAILY [facility] Administration Paroxetine HCl 30 mg 08/02/19 10:00 08/03/19 09:52 Paxil - PO 30 mg DAILY [facility] Administration Polyethylene Glycol 17 gm 08/02/19 22:00 08/03/19 09:54 Miralax (For Daily Use) - PO 17 grams BID [facility] Administration ASSESSMENT/PLAN: Ms. Fagan is an 89y/o female with HTN and HLD who presents with progressive shortness of breath and fatigue. Per daughter, the patient has become increasingly dyspneic on exertion over the last several months and especially in the last week. Pt was initially febrile and had leukocytosis but fever resolved and white count is borderline normal. Pt was found to have severe transaminitis and lactic acidosis. Echo showed LVH with EF 20-25% and RV pressure 40-50 with severe TR. #acute HFrEF Unknown if pt has previous hx of heart failure due to lack of follow up. -Lasix 40mg IV -in pt stress test after fluid improvement -carvedilol 3.125mg BID #transaminitis possibly 2/2 congestion vs cardiorenal syndrome continued improvement -GI following- paroxetine tapering -acute hep A negative (IgG present) -ID following -nephrology following -MRI- no abnormalities of liver, gallstones present in gallbladder but no infection -monitor INR- downtrending as well #hyponatremia likely 2/2 HF 124. -water restriction #constipation -miralax #HTN -carvedilol DVT Ppx heparin FEN fluid restriction monitor Na Na restricted diet Visit type - Emergency Visit Emergency Visit: Yes ED Registration Date: 07/28/19 Care time: The patient presented to the Emergency Department on the above date and was hospitalized for further evaluation of their emergent condition. - New Patient This patient is new to me today: No - Critical Care Critical Care patient: No - Discharge Referral Referred to [facility] Med [facility] No ATTENDING PHYSICIAN STATEMENT I saw and evaluated the patient. I reviewed the resident's note and discussed the case with the resident. I agree with the resident's findings and plan as documented. SUBJECTIVE: OBJECTIVE: ASSESSMENT AND PLAN:
--- NOTE | 2019-08-03 17:57 | PN ---
Teaching Attending Note Name of Resident: Odalis Mcmahon ATTENDING PHYSICIAN STATEMENT I saw and evaluated the patient. I reviewed the resident's note and discussed the case with the resident. I agree with the resident's findings and plan as documented. SUBJECTIVE: Patient is feeling better with NAD OBJECTIVE: Vital Signs Temperature 97.4 F L 08/03/19 14:44 Pulse Rate 72 08/03/19 14:44 Respiratory Rate 18 08/03/19 14:44 Blood Pressure 111/47 L 08/03/19 14:44 O2 Sat by Pulse Oximetry (%) 100 08/03/19 09:00 GENERAL: The patient is awake, alert, and fully oriented, in no acute distress. HEAD: Normal with no signs of trauma. EYES: PERRL, extraocular movements intact, sclera anicteric, conjunctiva clear. ENT: Ears normal, oropharynx clear without exudates, moist mucous membranes. NECK: Trachea midline, full range of motion, supple. LUNGS: decreased Breath sounds bl, no wheezes, no crackles, no accessory muscle use. HEART: Regular rate and rhythm, S1, S2 without murmur, rub or gallop. ABDOMEN: Soft, NT,ND, normoactive bowel sounds, no guarding, no rebound, no hepatosplenomegaly, no masses. EXTREMITIES: 2+ pulses, warm, well-perfused, no edema. NEUROLOGICAL: Cranial nerves II through XII grossly intact. Normal speech, gait not observed. PSYCH: Normal mood, normal affect. SKIN: Warm, dry, normal turgor, no rashes or lesions noted CBCD WBC 12.9 K/mm3 (4.0-10.0) H 08/03/19 06:10 RBC 4.81 M/mm3 (3.60-5.2) 08/03/19 06:10 Hgb 12.5 GM/dL (10.7-15.3) 08/03/19 06:10 Hct 39.5 % (32.4-45.2) 08/03/19 06:10 MCV 82.1 fl (80-96) 08/03/19 06:10 MCHC 31.8 g/dl (32.0-36.0) L 08/03/19 06:10 RDW 14.9 % (11.6-15.6) 08/03/19 06:10 Plt Count 318 K/MM3 (134-434) 08/03/19 06:10 MPV 8.6 fl (7.5-11.1) 08/03/19 06:10 CMP Sodium 124 mmol/L (136-145) L 08/03/19 06:10 Potassium 4.8 mmol/L (3.5-5.1) 08/03/19 06:10 Chloride 88 mmol/L (98-107) L 08/03/19 06:10 Carbon Dioxide 28 mmol/L (21-32) 08/03/19 06:10 Anion Gap 7 MMOL/L (8-16) L 08/03/19 06:10 BUN 41.4 mg/dL (7-18) H 08/03/19 06:10 Creatinine 1.2 mg/dL (0.55-1.3) 08/03/19 06:10 Random Glucose 283 mg/dL (74-106) H 08/03/19 06:10 Calcium 8.5 mg/dL (8.5-10.1) 08/03/19 06:10 Total Bilirubin 1.7 mg/dL (0.2-1) H 08/03/19 06:10 AST 648 U/L (15-37) H 08/03/19 06:10 ALT 1080 U/L (13-61) H 08/03/19 06:10 Alkaline Phosphatase 117 U/L (45-117) 08/03/19 06:10 Total Protein 6.0 g/dl (6.4-8.2) L 08/03/19 06:10 Albumin 2.9 g/dl (3.4-5.0) L 08/03/19 06:10 CARDIAC ENZYMES Creatine Kinase 158 U/L (26-192) 07/28/19 14:20 Troponin I 0.04 ng/ml (0.00-0.05) 07/28/19 14:20 Current Medications Generic Name Dose Route Start Last Admin Trade Name Kendallq PRN Reason Stop Dose Admin Carvedilol 3.125 mg 07/29/19 22:00 08/03/19 09:54 Coreg - PO 3.125 mg BID [facility] Administration Furosemide 40 mg 07/29/19 16:00 08/03/19 09:51 Lasix Injection - IVPUSH 40 mg DAILY [facility] Administration Glycerin 1 each 08/01/19 15:18 08/01/19 18:08 Glycerin Suppository Adult - [place] 1 each DAILY PRN Administration CONSTIPATION Heparin Sodium (Porcine) 5,000 unit 07/29/19 06:00 08/03/19 16:12 Heparin - SQ 5,000 unit TID [facility] Administration Pantoprazole Sodium 40 mg 08/02/19 10:00 08/03/19 09:51 Protonix - PO 40 mg DAILY [facility] Administration Paroxetine HCl 30 mg 08/02/19 10:00 08/03/19 09:52 Paxil - PO 30 mg DAILY [facility] Administration Polyethylene Glycol 17 gm 08/02/19 22:00 08/03/19 09:54 Miralax (For Daily Use) - PO 17 grams BID [facility] Administration Home Medications Medication Instructions Recorded Amoxicillin - [Amoxicillin 500mg 500 mg PO TID 07/28/19 Capsule -] Aspirin [Children's Aspirin] 81 mg PO DAILY 07/28/19 Fenofibrate Nanocrystallized 145 mg PO DAILY 07/28/19 [Fenofibrate] Losartan Potassium 50 mg PO DAILY 07/28/19 Lovastatin 20 mg PO DAILY 07/28/19 Paroxetine HCl 40 mg PO DAILY 07/28/19 Zolpidem Tartrate 10 mg PO DAILY 07/28/19 ASSESSMENT AND PLAN: 89 y/o lady with h/o HTN, HLP, Hysterectomy who presented with fever , chills x 1 -2 weeks and was found to have transaminitis . # New onset acute systolic heart failure: with severely reduced EF. # Acute transaminitis: due to congestive hepatopathy will continue to monitor LFts # CHELSEA: probably prerenal azotemia ( cardio-renal sx ) .continue lasix a # H/o HTN: hold losratan . cont coreg .monitor BP DVT PX : heparin SQ
[2019-08-03] MEDS ORDERED: SODIUM CHLORIDE 1 GM TABLET PO ONE (19:43)
--- NOTE | 2019-08-03 19:43 | PN ---
Progress Note, Physician History of Present Illness: Pt seen and examined at bedside. She is awake and alert. She denies shortness of breath. - Current Medication List Current Medications: Active Medications Carvedilol (Coreg -) 3.125 mg PO BID [facility] Last Admin: 08/03/19 09:54 Dose: 3.125 mg Furosemide (Lasix Injection -) 40 mg IVPUSH DAILY [facility] Last Admin: 08/03/19 09:51 Dose: 40 mg Glycerin (Glycerin Suppository Adult -) 1 each [place] DAILY PRN PRN Reason: CONSTIPATION Last Admin: 08/01/19 18:08 Dose: 1 each Heparin Sodium (Porcine) (Heparin -) 5,000 unit SQ TID [facility] Last Admin: 08/03/19 16:12 Dose: 5,000 unit Pantoprazole Sodium (Protonix -) 40 mg PO DAILY [facility] Last Admin: 08/03/19 09:51 Dose: 40 mg Paroxetine HCl (Paxil -) 30 mg PO DAILY [facility] Last Admin: 08/03/19 09:52 Dose: 30 mg Polyethylene Glycol (Miralax (For Daily Use) -) 17 gm PO BID [facility] Last Admin: 08/03/19 09:54 Dose: 17 grams - Objective Vital Signs: Vital Signs Temperature 97.6 F 08/03/19 18:12 Pulse Rate 72 08/03/19 18:12 Respiratory Rate 18 08/03/19 18:12 Blood Pressure 110/59 L 08/03/19 18:12 O2 Sat by Pulse Oximetry (%) 100 08/03/19 09:00 Constitutional: Yes: Calm Eyes: Yes: Conjunctiva Clear HENT: Yes: Atraumatic Cardiovascular: Yes: S1, S2 Respiratory: Yes: CTA Bilaterally Gastrointestinal: Yes: Soft, Abdomen, Obese Genitourinary: Yes: WNL Musculoskeletal: Yes: WNL Edema: Yes Edema: LLE: Trace, RLE: Trace Neurological: Yes: Oriented Psychiatric: Yes: Oriented Labs: CBC, BMP 08/03/19 06:10 08/03/19 06:10 INR, PTT INR 1.46 (0.83-1.09) H 08/03/19 06:10 Problem List - Problems (1) Hyponatremia Code(s): E87.1 - HYPO-OSMOLALITY AND HYPONATREMIA (2) Abnormal liver enzymes Code(s): R74.8 - ABNORMAL LEVELS OF OTHER SERUM ENZYMES (3) New onset of congestive heart failure Code(s): I50.9 - HEART FAILURE, UNSPECIFIED Assessment/Plan Current Medications Generic Name Dose Route Start Last Admin Trade Name Freq PRN Reason Stop Dose Admin Carvedilol 3.125 mg 07/29/19 22:00 08/03/19 09:54 Coreg - PO 3.125 mg BID [facility] Administration Furosemide 40 mg 07/29/19 16:00 08/03/19 09:51 Lasix Injection - IVPUSH 40 mg DAILY [facility] Administration Glycerin 1 each 08/01/19 15:18 08/01/19 18:08 Glycerin Suppository Adult - [place] 1 each DAILY PRN Administration CONSTIPATION Heparin Sodium (Porcine) 5,000 unit 07/29/19 06:00 08/03/19 16:12 Heparin - SQ 5,000 unit TID [facility] Administration Pantoprazole Sodium 40 mg 08/02/19 10:00 08/03/19 09:51 Protonix - PO 40 mg DAILY [facility] Administration Paroxetine HCl 30 mg 08/02/19 10:00 08/03/19 09:52 Paxil - PO 30 mg DAILY [facility] Administration Polyethylene Glycol 17 gm 08/02/19 22:00 08/03/19 09:54 Miralax (For Daily Use) - PO 17 grams BID [facility] Administration Impression 1. hyponatremia 2. chf 3. transaminitis 4. hld Plan - cont with lasix - will give a salt tab - repeat lytes in am - restrict free water - discussed with family - etiology of hyponatremia likely chf - will follow
[2019-08-03] MEDS ORDERED: BENZOCAINE/MENTH/CETYLPYRD CL 1 EACH LOZENGE MM PRN (20:15)
[2019-08-04] MEDS: HEPARIN NA (PORCINE) 5,000 UNITS/ML 1ML VIAL SQ SCH ×3 (05:29→21:39)
[2019-08-04 08:20] LABS: HEMATOCRIT 38.2 % (32.4-45.2); HEMOGLOBIN 12.1 GM/dL (10.7-15.3); MCH 25.9 pg (25.7-33.7); MCHC 31.7 g/dl (32.0-36.0); MEAN CELL VOLUME 81.7 fl (80-96); MEAN PLT VOLUME 8.2 fl (7.5-11.1); PLATELET COUNT 338 K/MM3 (134-434); RBC 4.68 M/mm3 (3.60-5.2); WHITE BLOOD COUNT 11.9 K/mm3 (4.0-10.0)
[2019-08-04 08:21] LABS: INR 1.38 (0.83-1.09); PROTHROMBIN TIME (PATIENT) 16.3 SEC (9.7-13.0)
[2019-08-04 08:42] LABS: ALBUMIN 2.8 g/dl (3.4-5.0); BILIRUBIN,TOTAL 1.5 mg/dL (0.2-1); BLOOD UREA NITROGEN 42.5 mg/dL (7-18); CALCIUM 8.1 mg/dL (8.5-10.1); CREATININE 1.3 mg/dL (0.55-1.3); POTASSIUM 4.5 mmol/L (3.5-5.1); TOT PROT 5.8 g/dl (6.4-8.2)
[2019-08-04] MEDS: FUROSEMIDE 40 MG/4 ML INJECTABLE VIAL IVPUSH SCH (09:56)
[2019-08-04] MEDS: PANTOPRAZOLE 40 MG TABLET (FP) PO SCH (09:56)
[2019-08-04] MEDS: CARVEDILOL 3.125 MG TABLET (FP) PO SCH ×2 (09:56→21:39)
[2019-08-04] MEDS: PARoxetine HCL 10 MG TABLET PO SCH (09:56)
[2019-08-04] MEDS: POLYETHYLENE GLYCOL 3350 119 GM BTL PO SCH ×2 (09:58→21:39)
--- NOTE | 2019-08-04 15:46 | PN ---
Progress Note (short form) - Note Progress Note: s: no chest pain, palps, dizziness, dyspnea Vital Signs Period Temp Pulse Resp BP Sys/Daniels Pulse Ox Last 24 Hr 97.6 F-98.8 F 69-75 18-22 106-134/59-74 96-100 nad no jvd rrr s1s2 no mrg cta bl nl ef aao3 no le e/c/c abd nt nd pos bs no jaundice diaphoresis Current Medications Benzocaine/Menthol (Cepacol Lozenge -) 1 each MM PRN PRN PRN Reason: SORE THROAT Last Admin: 08/03/19 22:06 Dose: 1 each Carvedilol (Coreg -) 3.125 mg PO BID [facility] Last Admin: 08/04/19 09:56 Dose: 3.125 mg Furosemide (Lasix Injection -) 40 mg IVPUSH DAILY [facility] Last Admin: 08/04/19 09:56 Dose: 40 mg Glycerin (Glycerin Suppository Adult -) 1 each [place] DAILY PRN PRN Reason: CONSTIPATION Last Admin: 08/01/19 18:08 Dose: 1 each Heparin Sodium (Porcine) (Heparin -) 5,000 unit SQ TID [facility] Last Admin: 08/04/19 15:09 Dose: 5,000 unit Pantoprazole Sodium (Protonix -) 40 mg PO DAILY [facility] Last Admin: 08/04/19 09:56 Dose: 40 mg Paroxetine HCl (Paxil -) 30 mg PO DAILY [facility] Last Admin: 08/04/19 09:56 Dose: 30 mg Polyethylene Glycol (Miralax (For Daily Use) -) 17 gm PO BID [facility] Last Admin: 08/04/19 09:58 Dose: 17 grams ecg: sr lbbb cxr: clear lungs echo 07/2019: lvef 20-25, global hk, nl rv, sev tr, mild lae, mod mr, rvsp 40- 50 a/p: 89 f hx hld, ckd (bl 1.2), here with sob. sob, acute systolic chf: -no known hx hrt dz but echo here showing reduced lvef and sev tr -seems that pt has component of vol overload with hepatic congestion causing elevated lfts (also possible from hep A) -has been getting lasix 40 iv qd with improvement in cr and sob, LFTs coming down as well, edema improving - monitor daily wts, lytes - cont current lasix -started coreg for chf regimen. hold off on jarvis/arb until cr/lytes more stable - mibi for ischemic evaluation hld: -statin held 2/2 elevated lfts sree on ckd: -monitor cr with diuresis, possibly cardiorenal as cr improved with lasix abnl ecg: -lbbb likely due to sev dec lvef - mibi ordered for ischemic evaluation
[2019-08-04] MEDS ORDERED: SODIUM CHLORIDE 1 GM TABLET PO ONE (16:09)
--- NOTE | 2019-08-04 16:11 | PN ---
Progress Note, Physician History of Present Illness: Pt seen and examined at bedside. She denies shortness of breath. - Current Medication List Current Medications: Active Medications Benzocaine/Menthol (Cepacol Lozenge -) 1 each MM PRN PRN PRN Reason: SORE THROAT Last Admin: 08/03/19 22:06 Dose: 1 each Carvedilol (Coreg -) 3.125 mg PO BID [facility] Last Admin: 08/04/19 09:56 Dose: 3.125 mg Furosemide (Lasix Injection -) 40 mg IVPUSH DAILY [facility] Last Admin: 08/04/19 09:56 Dose: 40 mg Glycerin (Glycerin Suppository Adult -) 1 each [place] DAILY PRN PRN Reason: CONSTIPATION Last Admin: 08/01/19 18:08 Dose: 1 each Heparin Sodium (Porcine) (Heparin -) 5,000 unit SQ TID [facility] Last Admin: 08/04/19 15:09 Dose: 5,000 unit Pantoprazole Sodium (Protonix -) 40 mg PO DAILY [facility] Last Admin: 08/04/19 09:56 Dose: 40 mg Paroxetine HCl (Paxil -) 30 mg PO DAILY [facility] Last Admin: 08/04/19 09:56 Dose: 30 mg Polyethylene Glycol (Miralax (For Daily Use) -) 17 gm PO BID [facility] Last Admin: 08/04/19 09:58 Dose: 17 grams - Objective Vital Signs: Vital Signs Temperature 98.8 F 08/04/19 11:26 Pulse Rate 75 08/04/19 11:26 Respiratory Rate 18 08/04/19 11:26 Blood Pressure 134/74 08/04/19 11:26 O2 Sat by Pulse Oximetry (%) 100 08/04/19 09:00 Constitutional: Yes: Calm Eyes: Yes: Conjunctiva Clear HENT: Yes: Atraumatic Neck: Yes: Supple Cardiovascular: Yes: S1, S2 Respiratory: Yes: Rhonchi Gastrointestinal: Yes: Soft, Abdomen, Obese Musculoskeletal: Yes: WNL Edema: Yes Edema: LLE: Trace, RLE: Trace Neurological: Yes: Oriented Psychiatric: Yes: Oriented Labs: CBC, BMP 08/04/19 07:20 08/04/19 07:20 INR, PTT INR 1.38 (0.83-1.09) H 08/04/19 07:20 Problem List - Problems (1) Hyponatremia Code(s): E87.1 - HYPO-OSMOLALITY AND HYPONATREMIA (2) Abnormal liver enzymes Code(s): R74.8 - ABNORMAL LEVELS OF OTHER SERUM ENZYMES (3) New onset of congestive heart failure Code(s): I50.9 - HEART FAILURE, UNSPECIFIED Assessment/Plan Current Medications Generic Name Dose Route Start Last Admin Trade Name Freq PRN Reason Stop Dose Admin Benzocaine/Menthol 1 each 08/03/19 20:15 08/03/19 22:06 Cepacol Lozenge - MM 1 each PRN PRN Administration SORE THROAT Carvedilol 3.125 mg 07/29/19 22:00 08/04/19 09:56 Coreg - PO 3.125 mg BID [facility] Administration Furosemide 40 mg 07/29/19 16:00 08/04/19 09:56 Lasix Injection - IVPUSH 40 mg DAILY [facility] Administration Glycerin 1 each 08/01/19 15:18 08/01/19 18:08 Glycerin Suppository Adult - [place] 1 each DAILY PRN Administration CONSTIPATION Heparin Sodium (Porcine) 5,000 unit 07/29/19 06:00 08/04/19 15:09 Heparin - SQ 5,000 unit TID [facility] Administration Pantoprazole Sodium 40 mg 08/02/19 10:00 08/04/19 09:56 Protonix - PO 40 mg DAILY [facility] Administration Paroxetine HCl 30 mg 08/02/19 10:00 08/04/19 09:56 Paxil - PO 30 mg DAILY [facility] Administration Polyethylene Glycol 17 gm 08/02/19 22:00 08/04/19 09:58 Miralax (For Daily Use) - PO 17 grams BID [facility] Administration Sodium Chloride 1 gm 08/04/19 16:09 Sodium Chloride Tablet - PO 08/04/19 16:10 ONCE ONE Impression 1. hyponatremia 2. chf 3. transaminitis 4. hld Plan - cont iv lasix - repeat labs in am - sodium improving - restrict free water - etiology of hyponatremia likely chf - will follow
--- NOTE | 2019-08-04 17:05 | PN ---
Physical Exam: SUBJECTIVE: Patient seen and examined. Pt reports shortness of breath is the same as yesterday, but she feels comfortable. No other complaints at this time. OBJECTIVE: Vital Signs Period Temp Pulse Resp BP Sys/Daniels Pulse Ox Last 24 Hr 97.6 F-98.8 F 69-75 18-22 106-134/59-74 96-100 GENERAL: The patient is awake, alert, and fully oriented, in no acute distress. HEAD: Normal with no signs of trauma. EYES: PERRL, extraocular movements intact, conjunctiva clear. ENT: Ears normal, nares patent, moist mucous membranes. NECK: Trachea midline, full range of motion, supple. LUNGS: Clear to auscultation HEART: Regular rate and rhythm, no murmur appreciated ABDOMEN: Soft, nontender, nondistended, normoactive bowel sounds, no guarding EXTREMITIES: Warm, well-perfused, no edema. NEUROLOGICAL: Cranial nerves II through XII grossly intact. Normal speech PSYCH: Normal mood, normal affect. SKIN: Warm, dry, normal turgor urine anderson 1450 cc Laboratory Results - last 24 hr 08/02/19 08/04/19 08/04/19 06:15 07:20 07:20 WBC 11.9 H RBC 4.68 Hgb 12.1 Hct 38.2 MCV 81.7 MCH 25.9 MCHC 31.7 L RDW 15.0 Plt Count 338 MPV 8.2 PT with INR INR Sodium 126 L Potassium 4.5 Chloride 89 L Carbon Dioxide 29 Anion Gap 9 BUN 42.5 H Creatinine 1.3 Est GFR (CKD-EPI)AfAm 42.42 Est GFR (CKD-EPI)NonAf 36.60 Random Glucose 250 H Calcium 8.1 L Total Bilirubin 1.5 H Direct Bilirubin 1.0 H AST 340 H ALT 801 H Alkaline Phosphatase 111 Total Protein 5.8 L Albumin 2.8 L Cortisol AM Sample 33.7 H 08/04/19 07:20 WBC RBC Hgb Hct MCV MCH MCHC RDW Plt Count MPV PT with INR 16.30 H INR 1.38 H Sodium Potassium Chloride Carbon Dioxide Anion Gap BUN Creatinine Est GFR (CKD-EPI)AfAm Est GFR (CKD-EPI)NonAf Random Glucose Calcium Total Bilirubin Direct Bilirubin AST ALT Alkaline Phosphatase Total Protein Albumin Cortisol AM Sample Active Medications Generic Name Dose Route Start Last Admin Trade Name Freq PRN Reason Stop Dose Admin Benzocaine/Menthol 1 each 08/03/19 20:15 08/03/19 22:06 Cepacol Lozenge - MM 1 each PRN PRN Administration SORE THROAT Carvedilol 3.125 mg 07/29/19 22:00 08/04/19 09:56 Coreg - PO 3.125 mg BID MASOOD Administration Furosemide 40 mg 07/29/19 16:00 08/04/19 09:56 Lasix Injection - IVPUSH 40 mg DAILY [facility] Administration Glycerin 1 each 08/01/19 15:18 08/01/19 18:08 Glycerin Suppository Adult - [place] 1 each DAILY PRN Administration CONSTIPATION Heparin Sodium (Porcine) 5,000 unit 07/29/19 06:00 08/04/19 15:09 Heparin - SQ 5,000 unit TID [facility] Administration Pantoprazole Sodium 40 mg 08/02/19 10:00 08/04/19 09:56 Protonix - PO 40 mg DAILY [facility] Administration Paroxetine HCl 30 mg 08/02/19 10:00 08/04/19 09:56 Paxil - PO 30 mg DAILY [facility] Administration Polyethylene Glycol 17 gm 08/02/19 22:00 08/04/19 09:58 Miralax (For Daily Use) - PO 17 grams BID [facility]OOD Administration ASSESSMENT/PLAN: Ms. Fagan is an 89y/o female with HTN and HLD who presents with progressive shortness of breath and fatigue. Per daughter, the patient has become increasingly dyspneic on exertion over the last several months and especially in the last week. Pt was initially febrile and had leukocytosis but fever resolved and white count is borderline normal. Pt was found to have severe transaminitis and lactic acidosis. Echo showed LVH with EF 20-25% and RV pressure 40-50 with severe TR. #acute HFrEF Unknown if pt has previous hx of heart failure due to lack of follow up. -Lasix 40mg IV -in pt stress test after fluid improvement -carvedilol 3.125mg BID -nuclear stress test #transaminitis possibly 2/2 congestion vs cardiorenal syndrome continued improvement -GI following- paroxetine dose lowered -acute hep A negative (IgG present) -ID following -nephrology following -MRI- no abnormalities of liver, gallstones present in gallbladder but no infection -monitor INR- downtrending as well #hyponatremia likely 2/2 HF 124-->126 -water restriction #constipation -miralax #HTN -carvedilol DVT Ppx heparin FEN fluid restriction monitor Na Na restricted diet Visit type - Emergency Visit Emergency Visit: Yes ED Registration Date: 07/28/19 Care time: The patient presented to the Emergency Department on the above date and was hospitalized for further evaluation of their emergent condition. - New Patient This patient is new to me today: No - Critical Care Critical Care patient: No - Discharge Referral Referred to [facility] Med P.C.: No ATTENDING PHYSICIAN STATEMENT I saw and evaluated the patient. I reviewed the resident's note and discussed the case with the resident. I agree with the resident's findings and plan as documented. SUBJECTIVE: OBJECTIVE: ASSESSMENT AND PLAN:
--- NOTE | 2019-08-04 18:00 | PN ---
Teaching Attending Note Name of Resident: Odalis Mcmahon ATTENDING PHYSICIAN STATEMENT I saw and evaluated the patient. I reviewed the resident's note and discussed the case with the resident. I agree with the resident's findings and plan as documented. SUBJECTIVE: Patient is feeling better with NAD. Vital Signs Temperature 98.8 F 08/04/19 11:26 Pulse Rate 75 08/04/19 11:26 Respiratory Rate 18 08/04/19 11:26 Blood Pressure 134/74 08/04/19 11:26 O2 Sat by Pulse Oximetry (%) 100 08/04/19 09:00 GENERAL: The patient is awake, alert, and fully oriented, in no acute distress. HEAD: Normal with no signs of trauma. EYES: PERRL, extraocular movements intact, sclera anicteric, conjunctiva clear. ENT: Ears normal, oropharynx clear without exudates, moist mucous membranes. NECK: Trachea midline, full range of motion, supple. LUNGS: Breath sounds equal, clear to auscultation bilaterally, no wheezes, no crackles, no accessory muscle use. HEART: Regular rate and rhythm, S1, S2 without murmur, rub or gallop. ABDOMEN: Soft, NT,ND, normoactive bowel sounds, no guarding, no rebound, no hepatosplenomegaly, no masses. EXTREMITIES: 2+ pulses, warm, well-perfused, no edema. NEUROLOGICAL: Cranial nerves II through XII grossly intact. Normal speech, gait not observed. PSYCH: Normal mood, normal affect. SKIN: Warm, dry, normal turgor, no rashes or lesions noted CBCD WBC 11.9 K/mm3 (4.0-10.0) H 08/04/19 07:20 RBC 4.68 M/mm3 (3.60-5.2) 08/04/19 07:20 Hgb 12.1 GM/dL (10.7-15.3) 08/04/19 07:20 Hct 38.2 % (32.4-45.2) 08/04/19 07:20 MCV 81.7 fl (80-96) 08/04/19 07:20 MCHC 31.7 g/dl (32.0-36.0) L 08/04/19 07:20 RDW 15.0 % (11.6-15.6) 08/04/19 07:20 Plt Count 338 K/MM3 (134-434) 08/04/19 07:20 MPV 8.2 fl (7.5-11.1) 08/04/19 07:20 CMP Sodium 126 mmol/L (136-145) L 08/04/19 07:20 Potassium 4.5 mmol/L (3.5-5.1) 08/04/19 07:20 Chloride 89 mmol/L (98-107) L 08/04/19 07:20 Carbon Dioxide 29 mmol/L (21-32) 08/04/19 07:20 Anion Gap 9 MMOL/L (8-16) 08/04/19 07:20 BUN 42.5 mg/dL (7-18) H 08/04/19 07:20 Creatinine 1.3 mg/dL (0.55-1.3) 08/04/19 07:20 Random Glucose 250 mg/dL (74-106) H 08/04/19 07:20 Calcium 8.1 mg/dL (8.5-10.1) L 08/04/19 07:20 Total Bilirubin 1.5 mg/dL (0.2-1) H 08/04/19 07:20 AST 340 U/L (15-37) H 08/04/19 07:20 ALT 801 U/L (13-61) H 08/04/19 07:20 Alkaline Phosphatase 111 U/L (45-117) 08/04/19 07:20 Total Protein 5.8 g/dl (6.4-8.2) L 08/04/19 07:20 Albumin 2.8 g/dl (3.4-5.0) L 08/04/19 07:20 CARDIAC ENZYMES Creatine Kinase 158 U/L (26-192) 07/28/19 14:20 Troponin I 0.04 ng/ml (0.00-0.05) 07/28/19 14:20 Current Medications Generic Name Dose Route Start Last Admin Trade Name Freq PRN Reason Stop Dose Admin Benzocaine/Menthol 1 each 08/03/19 20:15 08/03/19 22:06 Cepacol Lozenge - MM 1 each PRN PRN Administration SORE THROAT Carvedilol 3.125 mg 07/29/19 22:00 08/04/19 09:56 Coreg - PO 3.125 mg BID MASOOD Administration Furosemide 40 mg 07/29/19 16:00 08/04/19 09:56 Lasix Injection - IVPUSH 40 mg DAILY [facility] Administration Glycerin 1 each 08/01/19 15:18 08/01/19 18:08 Glycerin Suppository Adult - [place] 1 each DAILY PRN Administration CONSTIPATION Heparin Sodium (Porcine) 5,000 unit 07/29/19 06:00 08/04/19 15:09 Heparin - SQ 5,000 unit TID [facility]OOD Administration Pantoprazole Sodium 40 mg 08/02/19 10:00 08/04/19 09:56 Protonix - PO 40 mg DAILY [facility] Administration Paroxetine HCl 30 mg 08/02/19 10:00 08/04/19 09:56 Paxil - PO 30 mg DAILY [facility] Administration Polyethylene Glycol 17 gm 08/02/19 22:00 08/04/19 09:58 Miralax (For Daily Use) - PO 17 grams BID [facility]OOD Administration home Medications Medication Instructions Recorded Amoxicillin - [Amoxicillin 500mg 500 mg PO TID 07/28/19 Capsule -] Aspirin [Children's Aspirin] 81 mg PO DAILY 07/28/19 Fenofibrate Nanocrystallized 145 mg PO DAILY 07/28/19 [Fenofibrate] Losartan Potassium 50 mg PO DAILY 07/28/19 Lovastatin 20 mg PO DAILY 07/28/19 Paroxetine HCl 40 mg PO DAILY 07/28/19 Zolpidem Tartrate 10 mg PO DAILY 07/28/19 ASSESSMENT AND PLAN: 89 y/o lady with h/o HTN, HLP, Hysterectomy who presented with fever , chills x 1 -2 weeks and was found to have transaminitis . # New onset acute systolic heart failure: with severely reduced EF. # Acute transaminitis: due to congestive hepatopathy. - cont supportive measures - EBV is a previous infection. d/w ID - cont to hold statin and fibrates - cont Paroxitine at a lower dose 30. # CHELSEA: probably prerenal azotemia ( cardio-renal sx ) . cont diuresis - cont to hold losartan . if renal function remains stable, then might start a low dose # H/o HTN: hold losratan . cont coreg .monitor BP DVT PX : heparin SQ
[2019-08-04] MEDS ORDERED: PT OWN MED DRAWER 7, Y5N ONE (20:48)
[2019-08-05] MEDS: HEPARIN NA (PORCINE) 5,000 UNITS/ML 1ML VIAL SQ SCH ×3 (06:45→21:19)
[2019-08-05 07:26] LABS: HEMATOCRIT 37.7 % (32.4-45.2); HEMOGLOBIN 11.9 GM/dL (10.7-15.3); MCH 25.7 pg (25.7-33.7); MCHC 31.7 g/dl (32.0-36.0); MEAN CELL VOLUME 81.2 fl (80-96); PLATELET COUNT 332 K/MM3 (134-434); RBC 4.64 M/mm3 (3.60-5.2); RDW 15.1 % (11.6-15.6); WHITE BLOOD COUNT 11.3 K/mm3 (4.0-10.0)
[2019-08-05 08:24] LABS: ALBUMIN 2.7 g/dl (3.4-5.0); BILIRUBIN,DIRECT 0.9 mg/dL (0.0-0.2); BILIRUBIN,TOTAL 1.6 mg/dL (0.2-1); BLOOD UREA NITROGEN 34.1 mg/dL (7-18); CALCIUM 8.6 mg/dL (8.5-10.1); CREATININE 1.2 mg/dL (0.55-1.3); POTASSIUM 4.7 mmol/L (3.5-5.1); TOT PROT 5.8 g/dl (6.4-8.2)
[2019-08-05 09:19] LABS: INR 1.26 (0.83-1.09); PROTHROMBIN TIME (PATIENT) 14.9 SEC (9.7-13.0)
[2019-08-05] MEDS ORDERED: REGADENOSON 0.4 MG/5 ML PRE-FILLED SYRINGE IVPUSH ONE ×2 (10:15→12:13)
[2019-08-05] MEDS ORDERED: PT OWN MED DRAWER 7, Y5N ONE (13:12)
[2019-08-05] MEDS: CARVEDILOL 3.125 MG TABLET (FP) PO SCH ×2 (13:24→21:19)
[2019-08-05] MEDS: FUROSEMIDE 40 MG/4 ML INJECTABLE VIAL IVPUSH SCH (13:24)
[2019-08-05] MEDS: POLYETHYLENE GLYCOL 3350 119 GM BTL PO SCH ×2 (13:25→21:24)
[2019-08-05] MEDS: PARoxetine HCL 10 MG TABLET PO SCH (13:25)
[2019-08-05] MEDS: PANTOPRAZOLE 40 MG TABLET (FP) PO SCH (13:27)
[2019-08-05 14:34] VITALS: BMI 31.6
--- NOTE | 2019-08-05 15:25 | PN ---
Progress Note (short form) - Note Progress Note: s: no cp palps dizzy; sob better, walked entire hallway yesterday Vital Signs Period Temp Pulse Resp BP Sys/Daniels Pulse Ox Last 24 Hr 98.0 F-98.2 F 66-75 18-20 121-131/62-72 100-100 nad no jvd rrr s1s2 no mrg cta bl nl ef aao3 trace le edema bl abd nt nd pos bs no jaundice diaphoresis Current Medications Generic Name Dose Route Start Last Admin Trade Name Freq PRN Reason Stop Dose Admin Benzocaine/Menthol 1 each 08/03/19 20:15 08/03/19 22:06 Cepacol Lozenge - MM 1 each PRN PRN Administration SORE THROAT Carvedilol 3.125 mg 07/29/19 22:00 08/05/19 13:24 Coreg - PO 3.125 mg BID MASOOD Administration Furosemide 40 mg 07/29/19 16:00 08/05/19 13:24 Lasix Injection - IVPUSH 40 mg DAILY [facility] Administration Glycerin 1 each 08/01/19 15:18 08/01/19 18:08 Glycerin Suppository Adult - [place] 1 each DAILY PRN Administration CONSTIPATION Heparin Sodium (Porcine) 5,000 unit 07/29/19 06:00 08/05/19 14:06 Heparin - SQ 5,000 unit TID MASOOD Administration Pantoprazole Sodium 40 mg 08/02/19 10:00 08/05/19 13:27 Protonix - PO 40 mg DAILY [facility]OOD Administration Paroxetine HCl 30 mg 08/02/19 10:00 08/05/19 13:25 Paxil - PO 30 mg DAILY [facility] Administration Polyethylene Glycol 17 gm 08/02/19 22:00 08/05/19 13:25 Miralax (For Daily Use) - PO 17 grams BID MASOOD Administration Laboratory Last Values WBC 11.3 K/mm3 (4.0-10.0) H 08/05/19 06:15 RBC 4.64 M/mm3 (3.60-5.2) 08/05/19 06:15 Hgb 11.9 GM/dL (10.7-15.3) 08/05/19 06:15 Hct 37.7 % (32.4-45.2) 08/05/19 06:15 MCV 81.2 fl (80-96) 08/05/19 06:15 MCH 25.7 pg (25.7-33.7) 08/05/19 06:15 MCHC 31.7 g/dl (32.0-36.0) L 08/05/19 06:15 RDW 15.1 % (11.6-15.6) 08/05/19 06:15 Plt Count 332 K/MM3 (134-434) 08/05/19 06:15 MPV 8.0 fl (7.5-11.1) 08/05/19 06:15 Absolute Neuts (auto) 11.4 K/mm3 (1.5-8.0) H 08/01/19 06:40 Neutrophils % 77.7 % (42.8-82.8) 08/01/19 06:40 Lymphocytes % 12.0 % (8-40) 08/01/19 06:40 Monocytes % 9.8 % (3.8-10.2) 08/01/19 06:40 Eosinophils % 0.1 % (0-4.5) 08/01/19 06:40 Basophils % 0.4 % (0-2.0) 08/01/19 06:40 Nucleated RBC % 1 % (0-0) H 08/01/19 06:40 PT with INR 14.90 SEC (9.7-13.0) H 08/05/19 08:27 INR 1.26 (0.83-1.09) H 08/05/19 08:27 PTT (Actin FS) 27.2 SECONDS (25.2-36.5) 07/28/19 14:39 Sodium 131 mmol/L (136-145) L 08/05/19 06:15 Potassium 4.7 mmol/L (3.5-5.1) 08/05/19 06:15 Chloride 91 mmol/L (98-107) L 08/05/19 06:15 Carbon Dioxide 30 mmol/L (21-32) 08/05/19 06:15 Anion Gap 9 MMOL/L (8-16) 08/05/19 06:15 BUN 34.1 mg/dL (7-18) H 08/05/19 06:15 Creatinine 1.2 mg/dL (0.55-1.3) 08/05/19 06:15 Est GFR (CKD-EPI)AfAm 46.73 08/05/19 06:15 Est GFR (CKD-EPI)NonAf 40.32 08/05/19 06:15 Random Glucose 235 mg/dL (74-106) H 08/05/19 06:15 Serum Osmolality 284 mosm/kg (278-305) 08/02/19 06:15 Lactic Acid 4.4 mmol/L (0.4-2.0) H* 08/01/19 14:40 Calcium 8.6 mg/dL (8.5-10.1) 08/05/19 06:15 Phosphorus 2.8 mg/dL (2.5-4.9) 07/31/19 06:20 Magnesium 1.9 mg/dL (1.8-2.4) 07/31/19 06:20 Iron 22 ug/dL (50-175) L 07/30/19 06:20 TIBC 498 ug/dL (250-450) H 07/30/19 06:20 Iron Saturation 4 % (17.5-39) L 07/30/19 06:20 Unsaturated IBC 476 ug/dL (200-275) H 07/30/19 06:20 Ferritin 60.5 ng/ml (8-388) 07/30/19 06:20 Total Bilirubin 1.6 mg/dL (0.2-1) H 08/05/19 06:15 Direct Bilirubin 0.9 mg/dL (0.0-0.2) H 08/05/19 06:15 AST 186 U/L (15-37) H 08/05/19 06:15 ALT 611 U/L (13-61) H 08/05/19 06:15 Alkaline Phosphatase 104 U/L (45-117) 08/05/19 06:15 Ammonia 13.20 umol/L (11-32) 08/02/19 06:15 LD Total 881 IU/L (119-226) H 07/30/19 06:20 Creatine Kinase 158 U/L (26-192) 07/28/19 14:20 Creatine Kinase Index 1.5 % (0.0-5.0) 07/28/19 14:20 CK-MB (CK-2) 2.5 ng/mL (0.5-3.6) 07/28/19 14:20 Troponin I 0.04 ng/ml (0.00-0.05) 07/28/19 14:20 B-Natriuretic Peptide 6499.0 pg/ml (5-450) H 07/28/19 12:50 Total Protein 5.8 g/dl (6.4-8.2) L 08/05/19 06:15 Albumin 2.7 g/dl (3.4-5.0) L 08/05/19 06:15 LDL 1 Fraction 7.0 IU/L (17-32) L 07/30/19 06:20 LDL 2 Fraction 13.0 IU/L (25-40) L 07/30/19 06:20 LDL 3 Fraction 11.0 IU/L (17-27) L 07/30/19 06:20 LDL 4 Fraction 8.0 IU/L (5-13) 07/30/19 06:20 LDL 5 Fraction 61.0 IU/L (4-20) H 07/30/19 06:20 Lipase 73 U/L (73-393) 07/28/19 14:20 Tumor Marker AFP 2.9 ng/ml (0.0-8.3) 07/30/19 06:20 TSH 1.86 uIU/ml (0.358-3.74) 08/02/19 06:15 Cortisol AM Sample 33.7 ug/dL (6.2-19.4) H 08/02/19 06:15 Urine Color Dk yellow 07/28/19 12:50 Urine Appearance Clear 07/28/19 12:50 Urine pH 5.0 (5.0-8.0) 07/28/19 12:50 Ur Specific [place] 1.026 (1.010-1.035) 07/28/19 12:50 Urine Protein 2+ (NEGATIVE) H 07/28/19 12:50 Urine Glucose (UA) 3+ (NEGATIVE) H 07/28/19 12:50 Urine Ketones Trace (NEGATIVE) H 07/28/19 12:50 Urine Blood Negative (NEGATIVE) 07/28/19 12:50 Urine Nitrite Negative (NEGATIVE) 07/28/19 12:50 Urine Bilirubin Negative (NEGATIVE) 07/28/19 12:50 Urine Urobilinogen 1.0 mg/dL (0.2-1.0) 07/28/19 12:50 Ur Leukocyte Esterase Negative (NEGATIVE) 07/28/19 12:50 Urine WBC (Auto) 2 /hpf (0-5) 07/28/19 12:50 Urine RBC (Auto) 2 /hpf (0-4) 07/28/19 12:50 Urine Casts (Auto) 6 /lpf (0-8) 07/28/19 12:50 U Epithel Cells (Auto) 5.7 /HPF (0-5/HPF) 07/28/19 12:50 Urine Bacteria (Auto) 4.3 /hpf (NEGATIVE) 07/28/19 12:50 Urine Osmolality 391 mosm/kg (300-900) 08/01/19 16:00 Ur Random Sodium 11 MMOL/L (40-220) L 08/01/19 16:00 Ur Random Potassium 16.0 MMOL/L (25-125) L 08/01/19 16:00 Ur Random Chloride < 11 MMOL/L (110-250) L 08/01/19 16:00 Opiates Screen Negative ng/ml (XOXLGR=817) 07/29/19 11:28 Methadone Screen Negative ng/ml (ORYUXG=455) 07/29/19 11:28 Acetaminophen <2.0 07/28/19 14:10 Barbiturate Screen Negative ng/ml (BMTVDE=980) 07/29/19 11:28 Phencyclidine Screen Negative ng/ml (CUTOFF=25) 07/29/19 11:28 Ur Amphetamines Screen Negative ng/ml (FORZOB=016) 07/29/19 11:28 MDMA (Ecstasy) Screen Negative ng/ml (UWGHKK=147) 07/29/19 11:28 Benzodiazepines Screen Negative ng/ml (MSHPNS=109) 07/29/19 11:28 Cocaine Screen Negative ng/ml (ZFHCKA=964) 07/29/19 11:28 U Marijuana (THC) Screen Negative ng/ml (CUTOFF=50) 07/29/19 11:28 Alcohol, Quantitative < 3.0 mg/dL (0.0-5.0) 07/29/19 07:00 MACARIO Screen Negative (.) 07/29/19 07:00 Smooth Musc &[employer] Intrp 10 Units (0-19) 07/29/19 07:00 Adenovirus (PCR) Negative (Negative) 07/31/19 17:00 CMV IgG Ab > 10.00 U/mL (0.00-0.59) H 07/29/19 11:45 CMV IgM Ab < 30.0 AU/mL (0.0-29.9) 07/29/19 11:45 EBV IgG Ab >600.0 U/mL (0.0-17.9) H 07/29/19 11:45 EBV IgM Ab <36.0 U/mL (0.0-35.9) 07/29/19 11:45 EBV Nuclear Antigen 533.0 U/mL (0.0-17.9) H 07/29/19 11:45 Hep A IgM Ab Confirm Indeterminate (Negative) H 07/29/19 07:00 Hepatitis A Ab Total Positive (Negative) H 07/29/19 07:00 Hep Bs Antigen Negative (Negative) 07/29/19 07:00 Hep Bs Antibody Non reactive (.) 07/29/19 07:00 Hep B Core Total Ab Negative (Negative) 07/29/19 07:00 Hep B Core IgM Ab Negative (Negative) 07/29/19 07:00 Hepatitis Be Antibody Negative (Negative) 07/29/19 07:00 Hepatitis Be Antigen Negative (Negative) 07/29/19 07:00 Hepatitis C Ab (EIA) 0.1 s/co ratio (0.0-0.9) 07/28/19 14:39 Human Metapneumovir PCR Negative (Negative) 07/31/19 17:00 Influenza A (H1) PCR Negative (Negative) 07/31/19 17:00 Influenza B (RT-PCR) Negative (Negative) 07/31/19 17:00 Parainfluenza 1 (PCR) Negative (Negative) 07/31/19 17:00 Parainfluenza 2 (PCR) Negative (Negative) 07/31/19 17:00 Parainfluenza 3 (PCR) Negative (Negative) 07/31/19 17:00 RSV Type A (PCR) Negative (Negative) 07/31/19 17:00 RSV Type B (PCR) Negative (Negative) 07/31/19 17:00 Rhinovirus (PCR) Negative (Negative) 07/31/19 17:00 ecg: sr lbbb cxr: clear lungs echo 07/2019: lvef 20-25, global hk, nl rv, sev tr, mild lae, mod mr, rvsp 40- 50 mibi 07/2019: no ischemia a/p: 89 f hx hld, ckd (bl 1.2), here with sob. sob, acute systolic chf: -no known hx hrt dz but echo here showing reduced lvef and sev tr -seems that pt has component of vol overload with hepatic congestion causing elevated lfts (also possible from hep A) -has been getting lasix 40 iv qd with improvement in cr and sob, LFTs coming down as well, edema improving -monitor daily wts, lytes -cont current lasix -started coreg for chf regimen. hold off on jarvis/arb until cr/lytes more stable -mibi for ischemic evaluation was done here and showed no ischemia hld: -statin held 2/2 elevated lfts sree on ckd: -monitor cr with diuresis, possibly cardiorenal as cr improved with lasix abnl ecg: -lbbb likely due to sev dec lvef -mibi shows no ischemia
--- NOTE | 2019-08-05 15:29 | PN ---
Progress Note, Physician History of Present Illness: Pt seen and examined at bedside. She denies shortness of breath. - Current Medication List Current Medications: Active Medications Benzocaine/Menthol (Cepacol Lozenge -) 1 each MM PRN PRN PRN Reason: SORE THROAT Last Admin: 08/03/19 22:06 Dose: 1 each Carvedilol (Coreg -) 3.125 mg PO BID [facility] Last Admin: 08/05/19 13:24 Dose: 3.125 mg Furosemide (Lasix Injection -) 40 mg IVPUSH DAILY [facility] Last Admin: 08/05/19 13:24 Dose: 40 mg Glycerin (Glycerin Suppository Adult -) 1 each [place] DAILY PRN PRN Reason: CONSTIPATION Last Admin: 08/01/19 18:08 Dose: 1 each Heparin Sodium (Porcine) (Heparin -) 5,000 unit SQ TID [facility] Last Admin: 08/05/19 14:06 Dose: 5,000 unit Pantoprazole Sodium (Protonix -) 40 mg PO DAILY [facility] Last Admin: 08/05/19 13:27 Dose: 40 mg Paroxetine HCl (Paxil -) 30 mg PO DAILY [facility] Last Admin: 08/05/19 13:25 Dose: 30 mg Polyethylene Glycol (Miralax (For Daily Use) -) 17 gm PO BID [facility] Last Admin: 08/05/19 13:25 Dose: 17 grams - Objective Vital Signs: Vital Signs Temperature 98.1 F 08/05/19 06:00 Pulse Rate 70 08/05/19 06:00 Respiratory Rate 18 08/05/19 08:54 Blood Pressure 131/72 08/05/19 06:00 O2 Sat by Pulse Oximetry (%) 100 08/05/19 08:54 Constitutional: Yes: Calm Eyes: Yes: Conjunctiva Clear HENT: Yes: Atraumatic Neck: Yes: Supple Cardiovascular: Yes: S1, S2 Respiratory: Yes: CTA Bilaterally Gastrointestinal: Yes: Soft Genitourinary: Yes: WNL Musculoskeletal: Yes: WNL Edema: Yes Edema: LLE: Trace, RLE: Trace Neurological: Yes: Oriented Psychiatric: Yes: Oriented Labs: CBC, BMP 08/05/19 06:15 08/05/19 06:15 INR, PTT INR 1.26 (0.83-1.09) H 08/05/19 08:27 Problem List - Problems (1) Hyponatremia Code(s): E87.1 - HYPO-OSMOLALITY AND HYPONATREMIA (2) Abnormal liver enzymes Code(s): R74.8 - ABNORMAL LEVELS OF OTHER SERUM ENZYMES (3) New onset of congestive heart failure Code(s): I50.9 - HEART FAILURE, UNSPECIFIED Assessment/Plan Current Medications Generic Name Dose Route Start Last Admin Trade Name Freq PRN Reason Stop Dose Admin Benzocaine/Menthol 1 each 08/03/19 20:15 08/03/19 22:06 Cepacol Lozenge - MM 1 each PRN PRN Administration SORE THROAT Carvedilol 3.125 mg 07/29/19 22:00 08/05/19 13:24 Coreg - PO 3.125 mg BID [facility] Administration Furosemide 40 mg 07/29/19 16:00 08/05/19 13:24 Lasix Injection - IVPUSH 40 mg DAILY [facility] Administration Glycerin 1 each 08/01/19 15:18 08/01/19 18:08 Glycerin Suppository Adult - [place] 1 each DAILY PRN Administration CONSTIPATION Heparin Sodium (Porcine) 5,000 unit 07/29/19 06:00 08/05/19 14:06 Heparin - SQ 5,000 unit TID [facility]OOD Administration Pantoprazole Sodium 40 mg 08/02/19 10:00 08/05/19 13:27 Protonix - PO 40 mg DAILY [facility] Administration Paroxetine HCl 30 mg 08/02/19 10:00 08/05/19 13:25 Paxil - PO 30 mg DAILY [facility] Administration Polyethylene Glycol 17 gm 08/02/19 22:00 08/05/19 13:25 Miralax (For Daily Use) - PO 17 grams BID [facility] Administration Impression 1. hyponatremia 2. chf 3. transaminitis 4. hld Plan - cnt lasix IV - will give one more sodium of sodium - repeat labs in am - sodium improving - restrict free water - discussed with cardio - etiology of hyponatremia likely chf - will follow
--- NOTE | 2019-08-05 16:59 | PN ---
Physical Exam: SUBJECTIVE: Patient seen and examined. She reports feeling the same as the last several days in terms of breathing. She was sleeping lying flat. OBJECTIVE: Vital Signs Period Temp Pulse Resp BP Sys/Daniels Pulse Ox Last 24 Hr 98.0 F-98.2 F 66-75 18-20 121-131/62-72 100-100 GENERAL: The patient is awake, alert, and fully oriented, in no acute distress. HEAD: Normal with no signs of trauma. EYES: PERRL, extraocular movements intact, conjunctiva clear. ENT: Ears normal, nares patent, moist mucous membranes. NECK: Trachea midline, full range of motion, supple. LUNGS: Clear to auscultation HEART: Regular rate and rhythm, no murmur appreciated ABDOMEN: Soft, nontender, nondistended, normoactive bowel sounds, no guarding EXTREMITIES: Warm, well-perfused, no edema. NEUROLOGICAL: Cranial nerves II through XII grossly intact. Normal speech PSYCH: Normal mood, normal affect. SKIN: Warm, dry, normal turgor anderson [id number] Laboratory Results - last 24 hr 07/31/19 08/05/19 08/05/19 17:00 06:15 06:15 WBC 11.3 H RBC 4.64 Hgb 11.9 Hct 37.7 MCV 81.2 MCH 25.7 MCHC 31.7 L RDW 15.1 Plt Count 332 MPV 8.0 PT with INR INR Sodium 131 L Potassium 4.7 Chloride 91 L Carbon Dioxide 30 Anion Gap 9 BUN 34.1 H Creatinine 1.2 Est GFR (CKD-EPI)AfAm 46.73 Est GFR (CKD-EPI)NonAf 40.32 Random Glucose 235 H Calcium 8.6 Total Bilirubin 1.6 H Direct Bilirubin 0.9 H AST 186 H ALT 611 H Alkaline Phosphatase 104 Total Protein 5.8 L Albumin 2.7 L Adenovirus (PCR) Negative Human Metapneumovir PCR Negative Influenza A (H1) PCR Negative Influenza B (RT-PCR) Negative Parainfluenza 1 (PCR) Negative Parainfluenza 2 (PCR) Negative Parainfluenza 3 (PCR) Negative RSV Type A (PCR) Negative RSV Type B (PCR) Negative Rhinovirus (PCR) Negative 08/05/19 08:27 WBC RBC Hgb Hct MCV MCH MCHC RDW Plt Count MPV PT with INR 14.90 H INR 1.26 H Sodium Potassium Chloride Carbon Dioxide Anion Gap BUN Creatinine Est GFR (CKD-EPI)AfAm Est GFR (CKD-EPI)NonAf Random Glucose Calcium Total Bilirubin Direct Bilirubin AST ALT Alkaline Phosphatase Total Protein Albumin Adenovirus (PCR) Human Metapneumovir PCR Influenza A (H1) PCR Influenza B (RT-PCR) Parainfluenza 1 (PCR) Parainfluenza 2 (PCR) Parainfluenza 3 (PCR) RSV Type A (PCR) RSV Type B (PCR) Rhinovirus (PCR) Active Medications Generic Name Dose Route Start Last Admin Trade Name Freq PRN Reason Stop Dose Admin Benzocaine/Menthol 1 each 08/03/19 20:15 08/03/19 22:06 Cepacol Lozenge - MM 1 each PRN PRN Administration SORE THROAT Carvedilol 3.125 mg 07/29/19 22:00 08/05/19 13:24 Coreg - PO 3.125 mg BID MASOOD Administration Furosemide 40 mg 07/29/19 16:00 08/05/19 13:24 Lasix Injection - IVPUSH 40 mg DAILY [facility] Administration Glycerin 1 each 08/01/19 15:18 08/01/19 18:08 Glycerin Suppository Adult - [place] 1 each DAILY PRN Administration CONSTIPATION Heparin Sodium (Porcine) 5,000 unit 07/29/19 06:00 08/05/19 14:06 Heparin - SQ 5,000 unit TID [facility] Administration Pantoprazole Sodium 40 mg 08/02/19 10:00 08/05/19 13:27 Protonix - PO 40 mg DAILY [facility] Administration Paroxetine HCl 30 mg 08/02/19 10:00 08/05/19 13:25 Paxil - PO 30 mg DAILY [facility] Administration Polyethylene Glycol 17 gm 08/02/19 22:00 08/05/19 13:25 Miralax (For Daily Use) - PO 17 grams BID [facility]OOD Administration ASSESSMENT/PLAN: Ms. Fagan is an 89y/o female with HTN and HLD who presents with progressive shortness of breath and fatigue. Per daughter, the patient has become increasingly dyspneic on exertion over the last several months and especially in the last week prior to admission. Pt was found to have severe transaminitis and lactic acidosis. Echo showed LVH with EF 20-25% and RV pressure 40-50 with severe TR. #acute HFrEF Unknown if pt has previous hx of heart failure due to lack of follow up. -nuclear stress test showed global hypokinesis but no ischemia -Lasix 40mg IV -carvedilol 3.125mg BID #transaminitis possibly 2/2 congestion continued improvement -GI following- paroxetine dose lowered -acute hep A negative (IgG present) -ID following -nephrology following -MRI- no abnormalities of liver, gallstones present in gallbladder but no infection -monitor INR- downtrending as well #hyponatremia likely 2/2 HF, improving 131 -water restriction #constipation -bowel regimen #HTN -carvedilol DVT Ppx heparin FEN fluid restriction monitor Na Na restricted diet Visit type - Emergency Visit Emergency Visit: Yes ED Registration Date: 07/28/19 Care time: The patient presented to the Emergency Department on the above date and was hospitalized for further evaluation of their emergent condition. - New Patient This patient is new to me today: No - Critical Care Critical Care patient: No - Discharge Referral Referred to [facility] Med P.C.: No ATTENDING PHYSICIAN STATEMENT I saw and evaluated the patient. I reviewed the resident's note and discussed the case with the resident. I agree with the resident's findings and plan as documented. SUBJECTIVE: OBJECTIVE: ASSESSMENT AND PLAN:
--- NOTE | 2019-08-05 18:22 | PN.GI ---
GI Progress Note Subjective: GI NOTe: LFTS have almost normalized. NO GI complaints - Objective Vital Signs: Vital Signs Temperature 98.1 F 08/05/19 06:00 Pulse Rate 70 08/05/19 06:00 Respiratory Rate 18 08/05/19 08:54 Blood Pressure 131/72 08/05/19 06:00 O2 Sat by Pulse Oximetry (%) 100 08/05/19 08:54 Constitutional: Calm ...Auscultate: Yes: Normoactive Bowel Sounds ...Palpate: Yes: Soft, Other (nontender) Labs: CBC, BMP 08/05/19 06:15 08/05/19 06:15 INR, PTT INR 1.26 (0.83-1.09) H 08/05/19 08:27 Assessment/Plan Assessment: -- Congestive hepatopathy which is responding to afterload reduction -- Acute hepatitis A excluded by presence of IgG -- Silent gallstones . NO MRCP evidence of CBD stones or obstruction -- Constipation due to hospital sedentary state Plan: -- Continue Miralax -- Anticipate steady hepatic improvement with afterload reduction Problem List - Problems (1) Hepatic congestion Code(s): K76.1 - CHRONIC PASSIVE CONGESTION OF LIVER (2) Hepatitis A antibody positive Code(s): R76.8 - OTHER SPECIFIED ABNORMAL IMMUNOLOGICAL FINDINGS IN SERUM (3) Abnormal liver enzymes Code(s): R74.8 - ABNORMAL LEVELS OF OTHER SERUM ENZYMES (4) Hypertension Code(s): I10 - ESSENTIAL (PRIMARY) HYPERTENSION (5) Hyperlipidemia Code(s): E78.5 - HYPERLIPIDEMIA, UNSPECIFIED (6) New onset of congestive heart failure Code(s): I50.9 - HEART FAILURE, UNSPECIFIED (7) Constipation Code(s): K59.00 - CONSTIPATION, UNSPECIFIED
--- NOTE | 2019-08-05 19:50 | PN ---
Teaching Attending Note Name of Resident: Odalis Mcmahon ATTENDING PHYSICIAN STATEMENT I saw and evaluated the patient. I reviewed the resident's note and discussed the case with the resident. I agree with the resident's findings and plan as documented. SUBJECTIVE: Patient is comfortable with no acute distress, no shortness of breath Vital Signs Temperature 97.8 F 08/05/19 18:48 Pulse Rate 71 08/05/19 18:48 Respiratory Rate 18 08/05/19 18:48 Blood Pressure 115/60 08/05/19 18:48 O2 Sat by Pulse Oximetry (%) 100 08/05/19 08:54 GENERAL: The patient is awake, alert, and fully oriented, in no acute distress. HEAD: Normal with no signs of trauma. EYES: PERRL, extraocular movements intact, sclera anicteric, conjunctiva clear. ENT: Ears normal, oropharynx clear without exudates, moist mucous membranes. NECK: Trachea midline, full range of motion, supple. LUNGS: decreased Breath sounds bl , no wheezes, no crackles, no accessory muscle use. HEART: Regular rate and rhythm, S1, S2 without murmur, rub or gallop. ABDOMEN: Soft, NT, ND, normoactive bowel sounds, no guarding, no rebound, no hepatosplenomegaly, no masses. EXTREMITIES: 2+ pulses, warm, well-perfused, no edema. NEUROLOGICAL: Cranial nerves II through XII grossly intact. Normal speech, gait not observed. PSYCH: Normal mood, normal affect. SKIN: Warm, dry, normal turgor, no rashes or lesions noted CBCD WBC 11.3 K/mm3 (4.0-10.0) H 08/05/19 06:15 RBC 4.64 M/mm3 (3.60-5.2) 08/05/19 06:15 Hgb 11.9 GM/dL (10.7-15.3) 08/05/19 06:15 Hct 37.7 % (32.4-45.2) 08/05/19 06:15 MCV 81.2 fl (80-96) 08/05/19 06:15 MCHC 31.7 g/dl (32.0-36.0) L 08/05/19 06:15 RDW 15.1 % (11.6-15.6) 08/05/19 06:15 Plt Count 332 K/MM3 (134-434) 08/05/19 06:15 MPV 8.0 fl (7.5-11.1) 08/05/19 06:15 CMP Sodium 131 mmol/L (136-145) L 08/05/19 06:15 Potassium 4.7 mmol/L (3.5-5.1) 08/05/19 06:15 Chloride 91 mmol/L (98-107) L 08/05/19 06:15 Carbon Dioxide 30 mmol/L (21-32) 08/05/19 06:15 Anion Gap 9 MMOL/L (8-16) 08/05/19 06:15 BUN 34.1 mg/dL (7-18) H 08/05/19 06:15 Creatinine 1.2 mg/dL (0.55-1.3) 08/05/19 06:15 Random Glucose 235 mg/dL (74-106) H 08/05/19 06:15 Calcium 8.6 mg/dL (8.5-10.1) 08/05/19 06:15 Total Bilirubin 1.6 mg/dL (0.2-1) H 08/05/19 06:15 AST 186 U/L (15-37) H 08/05/19 06:15 ALT 611 U/L (13-61) H 08/05/19 06:15 Alkaline Phosphatase 104 U/L (45-117) 08/05/19 06:15 Total Protein 5.8 g/dl (6.4-8.2) L 08/05/19 06:15 Albumin 2.7 g/dl (3.4-5.0) L 08/05/19 06:15 CARDIAC ENZYMES Creatine Kinase 158 U/L (26-192) 07/28/19 14:20 Troponin I 0.04 ng/ml (0.00-0.05) 07/28/19 14:20 Current Medications Generic Name Dose Route Start Last Admin Trade Name Freq PRN Reason Stop Dose Admin Benzocaine/Menthol 1 each 08/03/19 20:15 08/03/19 22:06 Cepacol Lozenge - MM 1 each PRN PRN Administration SORE THROAT Carvedilol 3.125 mg 07/29/19 22:00 08/05/19 13:24 Coreg - PO 3.125 mg BID MASOOD Administration Furosemide 40 mg 07/29/19 16:00 08/05/19 13:24 Lasix Injection - IVPUSH 40 mg DAILY [facility] Administration Glycerin 1 each 08/01/19 15:18 08/01/19 18:08 Glycerin Suppository Adult - [place] 1 each DAILY PRN Administration CONSTIPATION Heparin Sodium (Porcine) 5,000 unit 07/29/19 06:00 08/05/19 14:06 Heparin - SQ 5,000 unit TID MASOOD Administration Pantoprazole Sodium 40 mg 08/02/19 10:00 08/05/19 13:27 Protonix - PO 40 mg DAILY [facility] Administration Paroxetine HCl 30 mg 08/02/19 10:00 08/05/19 13:25 Paxil - PO 30 mg DAILY [facility] Administration Polyethylene Glycol 17 gm 08/02/19 22:00 08/05/19 13:25 Miralax (For Daily Use) - PO 17 grams BID MASOOD Administration home Medications Medication Instructions Recorded Amoxicillin - [Amoxicillin 500mg 500 mg PO TID 07/28/19 Capsule -] Aspirin [Children's Aspirin] 81 mg PO DAILY 07/28/19 Fenofibrate Nanocrystallized 145 mg PO DAILY 07/28/19 [Fenofibrate] Losartan Potassium 50 mg PO DAILY 07/28/19 Lovastatin 20 mg PO DAILY 07/28/19 Paroxetine HCl 40 mg PO DAILY 07/28/19 Zolpidem Tartrate 10 mg PO DAILY 07/28/19 ASSESSMENT AND PLAN: Patient is an 89yo female with Pmhx of HTN, HLP, Hysterectomy who presented with fever, chills x 1 -2 weeks and was found to have elevated LFts. # New onset acute systolic heart failure: with severely reduced EF. on lasix and coreg continue, cardio on the case , possible life vest before dc given her EF is 20-25%, will need R/L heart cath at some point continue to hold MARCO/ ARB for now. # Acute transaminitis: due to congestive hepatopathy will trend --> improving ; cont supportive measures - EBV is a previous infection. d/w ID , will cont to hold statin and fibrates, cont Paroxitine at a lower dose 30. # CHELSEA: probably prerenal azotemia ( cardio-renal sx ) , improving, cont diuresis , cont to hold losartan . if renal function remains stable, then might start a low dose losartan # Acute hyponatremia: sodium of 131 # H/o HTN: hold losratan . cont coreg .monitor BP DVT PX : heparin SQ
[2019-08-06] MEDS: HEPARIN NA (PORCINE) 5,000 UNITS/ML 1ML VIAL SQ SCH ×3 (06:16→21:36)
[2019-08-06 10:00] LABS: HEMATOCRIT 36.7 % (32.4-45.2); HEMOGLOBIN 11.9 GM/dL (10.7-15.3); MCH 26.3 pg (25.7-33.7); MCHC 32.4 g/dl (32.0-36.0); MEAN CELL VOLUME 81.2 fl (80-96); MEAN PLT VOLUME 8.1 fl (7.5-11.1); PLATELET COUNT 335 K/MM3 (134-434); RBC 4.52 M/mm3 (3.60-5.2); WHITE BLOOD COUNT 10.2 K/mm3 (4.0-10.0)
[2019-08-06 10:13] LABS: INR 1.2 (0.83-1.09); PROTHROMBIN TIME (PATIENT) 14.2 SEC (9.7-13.0)
[2019-08-06 10:31] LABS: ALBUMIN 2.6 g/dl (3.4-5.0); BILIRUBIN,TOTAL 1.5 mg/dL (0.2-1); BLOOD UREA NITROGEN 31.9 mg/dL (7-18); CALCIUM 8.3 mg/dL (8.5-10.1); MAGNESIUM 2.1 mg/dL (1.8-2.4); TOT PROT 5.6 g/dl (6.4-8.2)
[2019-08-06] MEDS ORDERED: PT OWN MED DRAWER 7, Y5N ONE (10:43)
[2019-08-06] MEDS: PANTOPRAZOLE 40 MG TABLET (FP) PO SCH (10:48)
[2019-08-06] MEDS: CARVEDILOL 3.125 MG TABLET (FP) PO SCH ×2 (10:48→21:37)
[2019-08-06] MEDS: FUROSEMIDE 40 MG/4 ML INJECTABLE VIAL IVPUSH SCH (10:48)
[2019-08-06] MEDS: PARoxetine HCL 10 MG TABLET PO SCH (10:48)
[2019-08-06] MEDS: POLYETHYLENE GLYCOL 3350 119 GM BTL PO SCH ×2 (10:49→21:36)
--- NOTE | 2019-08-06 11:44 | PN ---
Progress Note (short form) - Note Progress Note: Patient is better with no acute distress. No shortness of breath. Vital Signs Temperature 98.1 F 08/06/19 18:30 Pulse Rate 70 08/06/19 18:30 Respiratory Rate 20 08/06/19 18:30 Blood Pressure 123/59 L 08/06/19 18:30 O2 Sat by Pulse Oximetry (%) 100 08/06/19 09:00 GENERAL: The patient is awake, alert, and fully oriented, in no acute distress. HEAD: Normal with no signs of trauma. EYES: PERRL, extraocular movements intact, sclera anicteric, conjunctiva clear. ENT: Ears normal, oropharynx clear without exudates, moist mucous membranes. NECK: Trachea midline, full range of motion, supple. LUNGS: Breath sounds equal, clear to auscultation bilaterally, no wheezes, no crackles, no accessory muscle use. HEART: Regular rate and rhythm, S1, S2 positive, ANAHI 2/6, no rub or gallop. ABDOMEN: Soft, NT,ND, normoactive bowel sounds, no guarding, no rebound, no hepatosplenomegaly, no masses. EXTREMITIES: 2+ pulses, warm, well-perfused, no edema. NEUROLOGICAL: Cranial nerves II through XII grossly intact. Normal speech, gait not observed. PSYCH: Normal mood, normal affect. SKIN: Warm, dry, normal turgor, no rashes or lesions noted CBCD WBC 10.2 K/mm3 (4.0-10.0) H 08/06/19 07:54 RBC 4.52 M/mm3 (3.60-5.2) 08/06/19 07:54 Hgb 11.9 GM/dL (10.7-15.3) 08/06/19 07:54 Hct 36.7 % (32.4-45.2) 08/06/19 07:54 MCV 81.2 fl (80-96) 08/06/19 07:54 MCHC 32.4 g/dl (32.0-36.0) 08/06/19 07:54 RDW 15.0 % (11.6-15.6) 08/06/19 07:54 Plt Count 335 K/MM3 (134-434) 08/06/19 07:54 MPV 8.1 fl (7.5-11.1) 08/06/19 07:54 CMP Sodium 131 mmol/L (136-145) L 08/06/19 07:54 Potassium 4.0 mmol/L (3.5-5.1) 08/06/19 07:54 Chloride 94 mmol/L (98-107) L 08/06/19 07:54 Carbon Dioxide 30 mmol/L (21-32) 08/06/19 07:54 Anion Gap 7 MMOL/L (8-16) L 08/06/19 07:54 BUN 31.9 mg/dL (7-18) H 08/06/19 07:54 Creatinine 1.0 mg/dL (0.55-1.3) 08/06/19 07:54 Random Glucose 226 mg/dL (74-106) H 08/06/19 07:54 Calcium 8.3 mg/dL (8.5-10.1) L 08/06/19 07:54 Total Bilirubin 1.5 mg/dL (0.2-1) H 08/06/19 07:54 AST 105 U/L (15-37) H 08/06/19 07:54 ALT 437 U/L (13-61) H 08/06/19 07:54 Alkaline Phosphatase 96 U/L (45-117) 08/06/19 07:54 Total Protein 5.6 g/dl (6.4-8.2) L 08/06/19 07:54 Albumin 2.6 g/dl (3.4-5.0) L 08/06/19 07:54 CARDIAC ENZYMES Creatine Kinase 158 U/L (26-192) 07/28/19 14:20 Troponin I 0.04 ng/ml (0.00-0.05) 07/28/19 14:20 Current Medications Generic Name Dose Route Start Last Admin Trade Name Freq PRN Reason Stop Dose Admin Benzocaine/Menthol 1 each 08/03/19 20:15 08/03/19 22:06 Cepacol Lozenge - MM 1 each PRN PRN Administration SORE THROAT Carvedilol 3.125 mg 07/29/19 22:00 08/06/19 10:48 Coreg - PO 3.125 mg BID MASOOD Administration Furosemide 40 mg 07/29/19 16:00 08/06/19 10:48 Lasix Injection - IVPUSH 40 mg DAILY MASOOD Administration Glycerin 1 each 08/01/19 15:18 08/01/19 18:08 Glycerin Suppository Adult - [place] 1 each DAILY PRN Administration CONSTIPATION Heparin Sodium (Porcine) 5,000 unit 07/29/19 06:00 08/06/19 06:16 Heparin - SQ 5,000 unit TID MASOOD Administration Pantoprazole Sodium 40 mg 08/02/19 10:00 08/06/19 10:48 Protonix - PO 40 mg DAILY [facility]OOD Administration Paroxetine HCl 30 mg 08/02/19 10:00 08/06/19 10:48 Paxil - PO 30 mg DAILY [facility] Administration Polyethylene Glycol 17 gm 08/02/19 22:00 08/06/19 10:49 Miralax (For Daily Use) - PO 17 grams BID MASOOD Administration Home Medications Medication Instructions Recorded Amoxicillin - [Amoxicillin 500mg 500 mg PO TID 07/28/19 Capsule -] Aspirin [Children's Aspirin] 81 mg PO DAILY 07/28/19 Fenofibrate Nanocrystallized 145 mg PO DAILY 07/28/19 [Fenofibrate] Losartan Potassium 50 mg PO DAILY 07/28/19 Lovastatin 20 mg PO DAILY 07/28/19 Paroxetine HCl 40 mg PO DAILY 07/28/19 Zolpidem Tartrate 10 mg PO DAILY 07/28/19 ASSESSMENT AND PLAN: Patient is an 89yo female with Pmhx of HTN, HLP, Hysterectomy who presented with fever, chills x 1 -2 weeks and was found to have elevated LFts. # New onset acute systolic heart failure: with severely reduced EF. on lasix and coreg continue, cardio on the case ,possible needing life vest before dc given her EF is 20-25%, will need R/L heart cath at some point , hold MARCO/ARB for now. # Acute transaminitis: improving due to congestive hepatopathy will continue to trend improving ; cont supportive measures - EBV is a previous infection. d/w ID , will cont to hold statin and fibrates, cont Paroxitine at a lower dose 30. # CHELSEA: probably prerenal azotemia ( cardio-renal sx ) , improving, cont diuresis, cont to hold losartan . if renal function remains stable, then might start a low dose losartan # Acute hyponatremia: improving 127--> 131 today , will check with nephro for sodium tablets x 2 doses. # H/o HTN: hold losratan. cont coreg .monitor BP DVT PX : heparin SQ Visit type - Emergency Visit Emergency Visit: Yes ED Registration Date: 07/28/19 Care time: The patient presented to the Emergency Department on the above date and was hospitalized for further evaluation of their emergent condition. - New Patient This patient is new to me today: No - Critical Care Critical Care patient: No - Discharge Referral Referred to [facility] Med P.C.: No
--- NOTE | 2019-08-06 13:53 | PN ---
Progress Note (short form) - Note Progress Note: s: no cp palps dizzy, sob Vital Signs Period Temp Pulse Resp BP Sys/Daniels Pulse Ox Last 24 Hr 97.8 F-98.2 F 69-73 16-18 115-126/60-67 100-100 nad no jvd rrr s1s2 no mrg cta bl nl ef aao3 trace le edema bl abd nt nd pos bs no jaundice diaphoresis Current Medications Benzocaine/Menthol (Cepacol Lozenge -) 1 each MM PRN PRN PRN Reason: SORE THROAT Last Admin: 08/03/19 22:06 Dose: 1 each Carvedilol (Coreg -) 3.125 mg PO BID [facility] Last Admin: 08/06/19 10:48 Dose: 3.125 mg Furosemide (Lasix Injection -) 40 mg IVPUSH DAILY [facility] Last Admin: 08/06/19 10:48 Dose: 40 mg Glycerin (Glycerin Suppository Adult -) 1 each [place] DAILY PRN PRN Reason: CONSTIPATION Last Admin: 08/01/19 18:08 Dose: 1 each Heparin Sodium (Porcine) (Heparin -) 5,000 unit SQ TID [facility] Last Admin: 08/06/19 06:16 Dose: 5,000 unit Pantoprazole Sodium (Protonix -) 40 mg PO DAILY [facility] Last Admin: 08/06/19 10:48 Dose: 40 mg Paroxetine HCl (Paxil -) 30 mg PO DAILY [facility] Last Admin: 08/06/19 10:48 Dose: 30 mg Polyethylene Glycol (Miralax (For Daily Use) -) 17 gm PO BID [facility] Last Admin: 08/06/19 10:49 Dose: 17 grams ecg: sr lbbb cxr: clear lungs echo 07/2019: lvef 20-25, global hk, nl rv, sev tr, mild lae, mod mr, rvsp 40- 50 mibi 07/2019: no ischemia a/p: 89 f hx hld, ckd (bl 1.2), here with sob. sob, acute systolic chf: -no known hx hrt dz but echo here showing reduced lvef and sev tr -seems that pt has component of vol overload with hepatic congestion causing elevated lfts (also possible from hep A) -has been getting lasix 40 iv qd with improvement in cr and sob, LFTs coming down as well, edema improving -monitor daily wts, lytes -cont current lasix for now -started coreg for chf regimen. hold off on jarvis/arb until cr/lytes more stable -mibi for ischemic evaluation was done here and showed no ischemia hld: -statin held 2/2 elevated lfts sree on ckd: -monitor cr with diuresis, possibly cardiorenal as cr improved with lasix abnl ecg: -lbbb likely due to sev dec lvef -mibi shows no ischemia
--- NOTE | 2019-08-06 16:26 | PN ---
Progress Note (short form) - Note Progress Note: 1. hyponatremia 2. chf 3. transaminitis 4. hld Active Medications Benzocaine/Menthol (Cepacol Lozenge -) 1 each MM PRN PRN PRN Reason: SORE THROAT Last Admin: 08/03/19 22:06 Dose: 1 each Carvedilol (Coreg -) 3.125 mg PO BID [facility] Last Admin: 08/06/19 10:48 Dose: 3.125 mg Furosemide (Lasix Injection -) 40 mg IVPUSH DAILY [facility] Last Admin: 08/06/19 10:48 Dose: 40 mg Glycerin (Glycerin Suppository Adult -) 1 each [place] DAILY PRN PRN Reason: CONSTIPATION Last Admin: 08/01/19 18:08 Dose: 1 each Heparin Sodium (Porcine) (Heparin -) 5,000 unit SQ TID [facility] Last Admin: 08/06/19 06:16 Dose: 5,000 unit Pantoprazole Sodium (Protonix -) 40 mg PO DAILY [facility] Last Admin: 08/06/19 10:48 Dose: 40 mg Paroxetine HCl (Paxil -) 30 mg PO DAILY [facility] Last Admin: 08/06/19 10:48 Dose: 30 mg Polyethylene Glycol (Miralax (For Daily Use) -) 17 gm PO BID [facility] Last Admin: 08/06/19 10:49 Dose: 17 grams Last Vital Signs Temp Pulse Resp BP Pulse Ox 97.5 F L 73 20 128/60 100 08/06/19 14:32 08/06/19 14:32 08/06/19 14:32 08/06/19 14:32 08/06/19 09:00 CBC, BMP 08/06/19 07:54 08/06/19 07:54 IMP- Hyponatremia CHF/Lasix Plan - cnt lasix IV - will give one more sodium of sodium - repeat labs in am - sodium improving - restrict free water - discussed with cardio - etiology of hyponatremia likely chf - will follow
[2019-08-07] MEDS: HEPARIN NA (PORCINE) 5,000 UNITS/ML 1ML VIAL SQ SCH ×3 (05:39→21:30)
[2019-08-07] MEDS: POLYETHYLENE GLYCOL 3350 119 GM BTL PO SCH ×2 (11:11→21:31)
[2019-08-07] MEDS ORDERED: PT OWN MED DRAWER 7, Y5N ONE (11:13)
[2019-08-07] MEDS: PANTOPRAZOLE 40 MG TABLET (FP) PO SCH (11:15)
[2019-08-07] MEDS: CARVEDILOL 3.125 MG TABLET (FP) PO SCH ×2 (11:15→21:31)
[2019-08-07] MEDS: PARoxetine HCL 10 MG TABLET PO SCH (11:15)
[2019-08-07] MEDS: FUROSEMIDE 40 MG/4 ML INJECTABLE VIAL IVPUSH SCH (11:16)
--- NOTE | 2019-08-07 12:12 | PN ---
Progress Note (short form) - Note Progress Note: s: no cp palps dizzy, sob Vital Signs Period Temp Pulse Resp BP Sys/Daniels Pulse Ox Last 24 Hr 97.5 F-98.1 F 70-79 18-20 123-132/59-83 100 nad no jvd rrr s1s2 no mrg cta bl nl ef aao3 trace le edema bl abd nt nd pos bs no jaundice diaphoresis Current Medications Benzocaine/Menthol (Cepacol Lozenge -) 1 each MM PRN PRN PRN Reason: SORE THROAT Last Admin: 08/03/19 22:06 Dose: 1 each Carvedilol (Coreg -) 3.125 mg PO BID [facility] Last Admin: 08/07/19 11:15 Dose: 3.125 mg Furosemide (Lasix Injection -) 40 mg IVPUSH DAILY [facility] Last Admin: 08/07/19 11:16 Dose: 40 mg Glycerin (Glycerin Suppository Adult -) 1 each [place] DAILY PRN PRN Reason: CONSTIPATION Last Admin: 08/01/19 18:08 Dose: 1 each Heparin Sodium (Porcine) (Heparin -) 5,000 unit SQ TID [facility] Last Admin: 08/07/19 05:39 Dose: 5,000 unit Sodium Phosphate 15 mm/ Sodium (Chloride) 255 mls @ 42.5 mls/hr IVPB ONCE ONE Stop: 08/07/19 18:59 Pantoprazole Sodium (Protonix -) 40 mg PO DAILY [facility] Last Admin: 08/07/19 11:15 Dose: 40 mg Paroxetine HCl (Paxil -) 30 mg PO DAILY [facility] Last Admin: 08/07/19 11:15 Dose: 30 mg Polyethylene Glycol (Miralax (For Daily Use) -) 17 gm PO BID [facility] Last Admin: 08/07/19 11:11 Dose: Not Given ecg: sr lbbb cxr: clear lungs echo 07/2019: lvef 20-25, global hk, nl rv, sev tr, mild lae, mod mr, rvsp 40- 50 mibi 07/2019: no ischemia a/p: 89 f hx hld, ckd (bl 1.2), here with sob. sob, acute systolic chf: -no known hx hrt dz but echo here showing reduced lvef and sev tr -seems that pt has component of vol overload with hepatic congestion causing elevated lfts (also possible from hep A) -has been getting lasix 40 iv qd with improvement in cr and sob, LFTs continue to decrease, edema improving -monitor daily wts, lytes -cont current lasix -cont coreg for chf regimen. hold off on jarvis/arb until cr/lytes more stable -mibi for ischemic evaluation was done here and showed no ischemia hld: -statin held 2/2 elevated lfts sree on ckd: -monitor cr with diuresis, possibly cardiorenal as cr improved with lasix abnl ecg: -lbbb likely due to sev dec lvef -mibi shows no ischemia
[2019-08-07] MEDS ORDERED: SODIUM PHOSPHATE - 15 MM in SODIUM CHLORIDE 250 ML IVPB ONE (13:00)
--- NOTE | 2019-08-07 14:06 | PN.GI ---
GI Progress Note Subjective: GI NOte: LFTs are almost normalized. NO GI complaints - Objective Vital Signs: Vital Signs Temperature 98 F 08/07/19 10:00 Pulse Rate 79 08/07/19 10:00 Respiratory Rate 18 08/07/19 10:00 Blood Pressure 132/83 08/07/19 10:00 O2 Sat by Pulse Oximetry (%) 100 08/06/19 21:00 Laboratory Tests 08/03/19 08/06/19 06:10 07:54 Total Bilirubin 1.5 H AST 648 H 105 H ALT 1080 H 437 H Alkaline Phosphatase 117 96 Constitutional: Calm ...Auscultate: Yes: Normoactive Bowel Sounds ...Palpate: Yes: Soft, Other (nontender) Labs: CBC, BMP 08/06/19 07:54 08/06/19 07:54 INR, PTT INR 1.20 (0.83-1.09) H 08/06/19 07:54 Assessment/Plan Assessment: -- Congestive hepatopathy which is responding to afterload reduction -- Acute hepatitis A excluded by presence of IgG -- Silent gallstones . NO MRCP evidence of CBD stones or obstruction -- Constipation due to hospital sedentary state Plan: -- Continue Miralax -- Continue afterload reduction Problem List - Problems (1) Hepatic congestion Code(s): K76.1 - CHRONIC PASSIVE CONGESTION OF LIVER (2) Hepatitis A antibody positive Code(s): R76.8 - OTHER SPECIFIED ABNORMAL IMMUNOLOGICAL FINDINGS IN SERUM (3) Abnormal liver enzymes Code(s): R74.8 - ABNORMAL LEVELS OF OTHER SERUM ENZYMES (4) Hypertension Code(s): I10 - ESSENTIAL (PRIMARY) HYPERTENSION (5) Hyperlipidemia Code(s): E78.5 - HYPERLIPIDEMIA, UNSPECIFIED (6) New onset of congestive heart failure Code(s): I50.9 - HEART FAILURE, UNSPECIFIED (7) Constipation Code(s): K59.00 - CONSTIPATION, UNSPECIFIED
--- NOTE | 2019-08-07 19:00 | PN ---
Teaching Attending Note Name of Resident: Odalis Mcmahon ATTENDING PHYSICIAN STATEMENT I saw and evaluated the patient. I reviewed the resident's note and discussed the case with the resident. I agree with the resident's findings and plan as documented. SUBJECTIVE: Patient is comfortable with no acute distress, feels better. Vital Signs Temperature 98 F 08/07/19 10:00 Pulse Rate 79 08/07/19 10:00 Respiratory Rate 18 08/07/19 10:00 Blood Pressure 132/83 08/07/19 10:00 O2 Sat by Pulse Oximetry (%) 100 08/06/19 21:00 GENERAL: The patient is awake, alert, and fully oriented, in no acute distress. HEAD: Normal with no signs of trauma. EYES: PERRL, extraocular movements intact, sclera anicteric, conjunctiva clear. ENT: Ears normal, oropharynx clear without exudates, moist mucous membranes. NECK: Trachea midline, full range of motion, supple. LUNGS: Breath sounds equal, clear to auscultation bilaterally, no wheezes, no crackles, no accessory muscle use. HEART: Regular rate and rhythm, S1, S2 positive, ANAHI 2/6, no rub or gallop. ABDOMEN: Soft, NT,ND, normoactive bowel sounds, no guarding, no rebound, no hepatosplenomegaly, no masses. EXTREMITIES: 2+ pulses, warm, well-perfused, no edema. NEUROLOGICAL: Cranial nerves II through XII grossly intact. Normal speech, gait not observed. PSYCH: Normal mood, normal affect. SKIN: Warm, dry, normal turgor, no rashes or lesions noted CBCD WBC 10.2 K/mm3 (4.0-10.0) H 08/06/19 07:54 RBC 4.52 M/mm3 (3.60-5.2) 08/06/19 07:54 Hgb 11.9 GM/dL (10.7-15.3) 08/06/19 07:54 Hct 36.7 % (32.4-45.2) 08/06/19 07:54 MCV 81.2 fl (80-96) 08/06/19 07:54 MCHC 32.4 g/dl (32.0-36.0) 08/06/19 07:54 RDW 15.0 % (11.6-15.6) 08/06/19 07:54 Plt Count 335 K/MM3 (134-434) 08/06/19 07:54 MPV 8.1 fl (7.5-11.1) 08/06/19 07:54 CMP Sodium 131 mmol/L (136-145) L 08/06/19 07:54 Potassium 4.0 mmol/L (3.5-5.1) 08/06/19 07:54 Chloride 94 mmol/L (98-107) L 08/06/19 07:54 Carbon Dioxide 30 mmol/L (21-32) 08/06/19 07:54 Anion Gap 7 MMOL/L (8-16) L 08/06/19 07:54 BUN 31.9 mg/dL (7-18) H 08/06/19 07:54 Creatinine 1.0 mg/dL (0.55-1.3) 08/06/19 07:54 Random Glucose 226 mg/dL (74-106) H 08/06/19 07:54 Calcium 8.3 mg/dL (8.5-10.1) L 08/06/19 07:54 Total Bilirubin 1.5 mg/dL (0.2-1) H 08/06/19 07:54 AST 105 U/L (15-37) H 08/06/19 07:54 ALT 437 U/L (13-61) H 08/06/19 07:54 Alkaline Phosphatase 96 U/L (45-117) 08/06/19 07:54 Total Protein 5.6 g/dl (6.4-8.2) L 08/06/19 07:54 Albumin 2.6 g/dl (3.4-5.0) L 08/06/19 07:54 CARDIAC ENZYMES Creatine Kinase 158 U/L (26-192) 07/28/19 14:20 Troponin I 0.04 ng/ml (0.00-0.05) 07/28/19 14:20 Current Medications Generic Name Dose Route Start Last Admin Trade Name Freq PRN Reason Stop Dose Admin Benzocaine/Menthol 1 each 08/03/19 20:15 08/03/19 22:06 Cepacol Lozenge - MM 1 each PRN PRN Administration SORE THROAT Carvedilol 3.125 mg 07/29/19 22:00 08/06/19 10:48 Coreg - PO 3.125 mg BID [facility] Administration Furosemide 40 mg 07/29/19 16:00 08/06/19 10:48 Lasix Injection - IVPUSH 40 mg DAILY [facility] Administration Glycerin 1 each 08/01/19 15:18 08/01/19 18:08 Glycerin Suppository Adult - [place] 1 each DAILY PRN Administration CONSTIPATION Heparin Sodium (Porcine) 5,000 unit 07/29/19 06:00 08/06/19 06:16 Heparin - SQ 5,000 unit TID [facility] Administration Pantoprazole Sodium 40 mg 08/02/19 10:00 08/06/19 10:48 Protonix - PO 40 mg DAILY [facility] Administration Paroxetine HCl 30 mg 08/02/19 10:00 08/06/19 10:48 Paxil - PO 30 mg DAILY [facility] Administration Polyethylene Glycol 17 gm 08/02/19 22:00 08/06/19 10:49 Miralax (For Daily Use) - PO 17 grams BID [facility] Administration Home Medications Medication Instructions Recorded Amoxicillin - [Amoxicillin 500mg 500 mg PO TID 07/28/19 Capsule -] Aspirin [Children's Aspirin] 81 mg PO DAILY 07/28/19 Fenofibrate Nanocrystallized 145 mg PO DAILY 07/28/19 [Fenofibrate] Losartan Potassium 50 mg PO DAILY 07/28/19 Lovastatin 20 mg PO DAILY 07/28/19 Paroxetine HCl 40 mg PO DAILY 07/28/19 Zolpidem Tartrate 10 mg PO DAILY 07/28/19 ASSESSMENT AND PLAN: Patient is an 89yo female with Pmhx of HTN, HLP, Hysterectomy who presented with fever, chills x 1 -2 weeks and was found to have elevated LFts. # New onset acute systolic heart failure: with severely reduced EF. on lasix and coreg continue, cardio on the case ,possible needing life vest before dc given her EF is 20-25%, will need R/L heart cath at some point , hold MARCO/ARB for now. # Acute transaminitis: improving due to congestive hepatopathy will continue to trend improving ; cont supportive measures - EBV is a previous infection. d/w ID , will cont to hold statin and fibrates, cont Paroxitine at a lower dose 30. # CHELSEA: probably prerenal azotemia ( cardio-renal sx ) , improved , continue diuresing, cont to hold losartan will check with cardio whether to place her back to losartan . repeat CMP in am # Acute hyponatremia: improving 127--> 131 today , will check with nephro for sodium tablets x 2 doses. # hypophos: replete # H/o HTN: hold losratan. cont coreg .monitor BP DVT PX : heparin SQ
--- NOTE | 2019-08-07 19:01 | PN ---
Physical Exam: SUBJECTIVE: Patient seen and examined. She reports feeling the same as the last several days in terms of breathing. OBJECTIVE: Vital Signs Period Temp Pulse Resp BP Sys/Daniels Pulse Ox Last 24 Hr 98 F-98.0 F 77-79 18-20 125-132/77-83 100 GENERAL: The patient is awake, alert, and fully oriented, in no acute distress. HEAD: Normal with no signs of trauma. EYES: PERRL, extraocular movements intact, conjunctiva clear. ENT: Ears normal, nares patent, moist mucous membranes. NECK: Trachea midline, full range of motion, supple. LUNGS: Clear to auscultation HEART: Regular rate and rhythm, no murmur appreciated ABDOMEN: Soft, nontender, nondistended, normoactive bowel sounds, no guarding EXTREMITIES: Warm, well-perfused, no edema. NEUROLOGICAL: Cranial nerves II through XII grossly intact. Normal speech PSYCH: Normal mood, normal affect. SKIN: Warm, dry, normal turgor Active Medications Generic Name Dose Route Start Last Admin Trade Name Freq PRN Reason Stop Dose Admin Benzocaine/Menthol 1 each 08/03/19 20:15 08/03/19 22:06 Cepacol Lozenge - MM 1 each PRN PRN Administration SORE THROAT Carvedilol 3.125 mg 07/29/19 22:00 08/07/19 11:15 Coreg - PO 3.125 mg BID [facility] Administration Furosemide 40 mg 07/29/19 16:00 08/07/19 11:16 Lasix Injection - IVPUSH 40 mg DAILY [facility] Administration Glycerin 1 each 08/01/19 15:18 08/01/19 18:08 Glycerin Suppository Adult - [place] 1 each DAILY PRN Administration CONSTIPATION Heparin Sodium (Porcine) 5,000 unit 07/29/19 06:00 08/07/19 15:20 Heparin - SQ Not Given TID [facility] Pantoprazole Sodium 40 mg 08/02/19 10:00 08/07/19 11:15 Protonix - PO 40 mg DAILY [facility] Administration Paroxetine HCl 30 mg 08/02/19 10:00 08/07/19 11:15 Paxil - PO 30 mg DAILY [facility] Administration Polyethylene Glycol 17 gm 08/02/19 22:00 08/07/19 11:11 Miralax (For Daily Use) - PO Not Given BID [facility] ASSESSMENT/PLAN: Ms. Fagan is an 89y/o female with HTN and HLD who presents with progressive shortness of breath and fatigue. Per daughter, the patient has become increasingly dyspneic on exertion over the last several months and especially in the last week prior to admission. Pt was found to have severe transaminitis and lactic acidosis. Echo showed LVH with EF 20-25% and RV pressure 40-50 with severe TR. #acute HFrEF Unknown if pt has previous hx of heart failure due to lack of follow up. -nuclear stress test showed global hypokinesis but no ischemia -Lasix 40mg IV -carvedilol 3.125mg BID -d/c planned for tomorrow- will be on lasix 40mg PO #transaminitis possibly 2/2 congestion continued improvement -GI following- paroxetine dose lowered -acute hep A negative (IgG present) -ID following -nephrology following -MRI- no abnormalities of liver, gallstones present in gallbladder but no infection -monitor INR- downtrending as well #hyponatremia likely 2/2 HF 131 -water restriction #constipation -bowel regimen #HTN -carvedilol DVT Ppx heparin FEN fluid restriction monitor Na Na restricted diet Visit type - Emergency Visit Emergency Visit: Yes ED Registration Date: 07/28/19 Care time: The patient presented to the Emergency Department on the above date and was hospitalized for further evaluation of their emergent condition. - New Patient This patient is new to me today: No - Critical Care Critical Care patient: No - Discharge Referral Referred to [facility] Med P.C.: No ATTENDING PHYSICIAN STATEMENT I saw and evaluated the patient. I reviewed the resident's note and discussed the case with the resident. I agree with the resident's findings and plan as documented. SUBJECTIVE: OBJECTIVE: ASSESSMENT AND PLAN:
--- NOTE | 2019-08-07 22:17 | PN ---
Progress Note (short form) - Note Progress Note: 1. hyponatremia 2. chf 3. transaminitis 4. hld Current Medications Benzocaine/Menthol (Cepacol Lozenge -) 1 each MM PRN PRN PRN Reason: SORE THROAT Last Admin: 08/03/19 22:06 Dose: 1 each Carvedilol (Coreg -) 3.125 mg PO BID [facility] Last Admin: 08/07/19 21:31 Dose: 3.125 mg Furosemide (Lasix Injection -) 40 mg IVPUSH DAILY [facility] Last Admin: 08/07/19 11:16 Dose: 40 mg Glycerin (Glycerin Suppository Adult -) 1 each [place] DAILY PRN PRN Reason: CONSTIPATION Last Admin: 08/01/19 18:08 Dose: 1 each Heparin Sodium (Porcine) (Heparin -) 5,000 unit SQ TID [facility] Last Admin: 08/07/19 21:30 Dose: 5,000 unit Pantoprazole Sodium (Protonix -) 40 mg PO DAILY [facility] Last Admin: 08/07/19 11:15 Dose: 40 mg Paroxetine HCl (Paxil -) 30 mg PO DAILY [facility] Last Admin: 08/07/19 11:15 Dose: 30 mg Polyethylene Glycol (Miralax (For Daily Use) -) 17 gm PO BID [facility] Last Admin: 08/07/19 21:31 Dose: 17 grams Last Vital Signs Temp Pulse Resp BP Pulse Ox 98 F 79 18 132/83 100 08/07/19 10:00 08/07/19 10:00 08/07/19 10:00 08/07/19 10:00 08/06/19 21:00 Lungs clear Heart reg Abd soft Ext no edema CBC, BMP 08/06/19 07:54 08/06/19 07:54 IMP- chronic Hyponatremia CHF/Lasix Plan - cnt lasix IV - will give one more sodium of sodium - repeat labs in am - sodium improving - restrict free water - discussed with cardio - etiology of hyponatremia likely chf - will follow - will give a trial of salt tabs
[2019-08-07] MEDS: SODIUM CHLORIDE 1 GM TABLET PO SCH (23:00)
[2019-08-08] MEDS: HEPARIN NA (PORCINE) 5,000 UNITS/ML 1ML VIAL SQ SCH ×2 (05:08→16:09)
[2019-08-08] MEDS ORDERED: PT OWN MED DRAWER 7, Y5N ONE (09:25)
[2019-08-08 09:39] LABS: BASO % 0.4 % (0-2.0); EOS % 3.2 % (0-4.5); HEMATOCRIT 37.5 % (32.4-45.2); HEMOGLOBIN 11.9 GM/dL (10.7-15.3); MCH 25.9 pg (25.7-33.7); MCHC 31.7 g/dl (32.0-36.0); MEAN CELL VOLUME 81.8 fl (80-96); MEAN PLT VOLUME 7.7 fl (7.5-11.1); MONO % 6.1 % (3.8-10.2); NEUT % 76.3 % (42.8-82.8); PLATELET COUNT 343 K/MM3 (134-434); RBC 4.59 M/mm3 (3.60-5.2); RDW 15.8 % (11.6-15.6); WHITE BLOOD COUNT 9.2 K/mm3 (4.0-10.0)
[2019-08-08 10:06] LABS: ALBUMIN 2.7 g/dl (3.4-5.0); BLOOD UREA NITROGEN 22.8 mg/dL (7-18); CALCIUM 8.3 mg/dL (8.5-10.1); MAGNESIUM 1.9 mg/dL (1.8-2.4); PHOSPHOROUS 2.8 mg/dL (2.5-4.9); POTASSIUM 3.8 mmol/L (3.5-5.1); TOT PROT 5.8 g/dl (6.4-8.2)
[2019-08-08] MEDS: FUROSEMIDE 40 MG/4 ML INJECTABLE VIAL IVPUSH SCH (10:46)
[2019-08-08] MEDS: PARoxetine HCL 10 MG TABLET PO SCH (10:47)
[2019-08-08] MEDS: PANTOPRAZOLE 40 MG TABLET (FP) PO SCH (10:47)
[2019-08-08] MEDS: POLYETHYLENE GLYCOL 3350 119 GM BTL PO SCH (10:47)
[2019-08-08] MEDS: CARVEDILOL 3.125 MG TABLET (FP) PO SCH (10:47)
[2019-08-08] MEDS: SODIUM CHLORIDE 1 GM TABLET PO SCH (12:22)
[2019-08-08] MEDS ORDERED: POTASSIUM CHLORIDE TABS 20 MEQ TABLET.ER (FP) PO ONE ×2 (14:02→17:00)
--- NOTE | 2019-08-08 14:26 | PN ---
Progress Note, Physician History of Present Illness: Pt seen and examined at bedside. She is awake and alert. She denies shortness of breath. - Current Medication List Current Medications: Active Medications Benzocaine/Menthol (Cepacol Lozenge -) 1 each MM PRN PRN PRN Reason: SORE THROAT Last Admin: 08/03/19 22:06 Dose: 1 each Carvedilol (Coreg -) 3.125 mg PO BID [facility] Last Admin: 08/08/19 10:47 Dose: 3.125 mg Furosemide (Lasix Injection -) 40 mg IVPUSH DAILY [facility] Last Admin: 08/08/19 10:46 Dose: 40 mg Glycerin (Glycerin Suppository Adult -) 1 each [place] DAILY PRN PRN Reason: CONSTIPATION Last Admin: 08/01/19 18:08 Dose: 1 each Heparin Sodium (Porcine) (Heparin -) 5,000 unit SQ TID [facility] Last Admin: 08/08/19 05:08 Dose: 5,000 unit Pantoprazole Sodium (Protonix -) 40 mg PO DAILY [facility] Last Admin: 08/08/19 10:47 Dose: 40 mg Paroxetine HCl (Paxil -) 30 mg PO DAILY [facility] Last Admin: 08/08/19 10:47 Dose: 30 mg Polyethylene Glycol (Miralax (For Daily Use) -) 17 gm PO BID [facility] Last Admin: 08/08/19 10:47 Dose: 17 grams Sodium Chloride (Sodium Chloride Tablet -) 0.5 gm PO BID [facility] Stop: 08/09/19 22:29 Last Admin: 08/08/19 12:22 Dose: 0.5 gm - Objective Vital Signs: Vital Signs Temperature 98.4 F 08/07/19 22:00 Pulse Rate 80 08/07/19 22:00 Respiratory Rate 18 08/07/19 22:00 Blood Pressure 130/79 08/07/19 22:00 O2 Sat by Pulse Oximetry (%) 100 08/07/19 21:00 Constitutional: Yes: Calm Eyes: Yes: Conjunctiva Clear HENT: Yes: Atraumatic Neck: Yes: Supple Cardiovascular: Yes: S1, S2 Respiratory: Yes: CTA Bilaterally Gastrointestinal: Yes: Soft Genitourinary: Yes: WNL Musculoskeletal: Yes: WNL Edema: No Neurological: Yes: Oriented Psychiatric: Yes: Oriented Labs: CBC, BMP 08/08/19 09:08 08/08/19 09:08 INR, PTT INR 1.20 (0.83-1.09) H 08/06/19 07:54 Problem List - Problems (1) Hyponatremia Code(s): E87.1 - HYPO-OSMOLALITY AND HYPONATREMIA (2) Abnormal liver enzymes Code(s): R74.8 - ABNORMAL LEVELS OF OTHER SERUM ENZYMES (3) New onset of congestive heart failure Code(s): I50.9 - HEART FAILURE, UNSPECIFIED Assessment/Plan Current Medications Generic Name Dose Route Start Last Admin Trade Name Freq PRN Reason Stop Dose Admin Benzocaine/Menthol 1 each 08/03/19 20:15 08/03/19 22:06 Cepacol Lozenge - MM 1 each PRN PRN Administration SORE THROAT Carvedilol 3.125 mg 07/29/19 22:00 08/08/19 10:47 Coreg - PO 3.125 mg BID [facility] Administration Furosemide 40 mg 07/29/19 16:00 08/08/19 10:46 Lasix Injection - IVPUSH 40 mg DAILY [facility] Administration Glycerin 1 each 08/01/19 15:18 08/01/19 18:08 Glycerin Suppository Adult - [place] 1 each DAILY PRN Administration CONSTIPATION Heparin Sodium (Porcine) 5,000 unit 07/29/19 06:00 08/08/19 05:08 Heparin - SQ 5,000 unit TID [facility] Administration Pantoprazole Sodium 40 mg 08/02/19 10:00 08/08/19 10:47 Protonix - PO 40 mg DAILY [facility] Administration Paroxetine HCl 30 mg 08/02/19 10:00 08/08/19 10:47 Paxil - PO 30 mg DAILY [facility] Administration Polyethylene Glycol 17 gm 08/02/19 22:00 08/08/19 10:47 Miralax (For Daily Use) - PO 17 grams BID [facility] Administration Sodium Chloride 0.5 gm 08/07/19 22:30 08/08/19 12:22 Sodium Chloride Tablet - PO 08/09/19 22:29 0.5 gm BID [facility] Administration Impression 1. hyponatremia 2. chf 3. transaminitis 4. hld Plan - cont lasix - restrict free water - can stop sodium tabs for now - will need outpt follow up - heart healthy diet - etiology of hyponatremia likely chf
--- NOTE | 2019-08-08 15:23 | PN ---
Teaching Attending Note Name of Resident: Yessica Thakur ATTENDING PHYSICIAN STATEMENT I saw and evaluated the patient. I reviewed the resident's note and discussed the case with the resident. I agree with the resident's findings and plan as documented. SUBJECTIVE: Patient is feeling better, daughter at bedside. no chest pain or shortness of breath or palpitations. OBJECTIVE: Vital Signs Temperature 98.9 F 08/08/19 14:30 Pulse Rate 82 08/08/19 14:30 Respiratory Rate 20 08/08/19 14:30 Blood Pressure 121/61 08/08/19 14:30 O2 Sat by Pulse Oximetry (%) 100 08/08/19 09:00 GENERAL: The patient is awake, alert, and fully oriented, in no acute distress. HEAD: Normal with no signs of trauma. EYES: PERRL, extraocular movements intact, sclera anicteric, conjunctiva clear. ENT: Ears normal, oropharynx clear without exudates, moist mucous membranes. NECK: Trachea midline, full range of motion, supple. LUNGS: Breath sounds equal, clear to auscultation bilaterally, no wheezes, no crackles, no accessory muscle use. HEART: Regular rate and rhythm, S1, S2 positive, ANAHI 3/6 LSB , no rub or gallop. ABDOMEN: Soft, NT,ND, normoactive bowel sounds, no guarding, no rebound, no hepatosplenomegaly, no masses. EXTREMITIES: 2+ pulses, warm, well-perfused, no edema. NEUROLOGICAL: Cranial nerves II through XII grossly intact. Normal speech, gait not observed. PSYCH: Normal mood, normal affect. SKIN: Warm, dry, normal turgor, no rashes or lesions noted CBCD WBC 9.2 K/mm3 (4.0-10.0) 08/08/19 09:08 RBC 4.59 M/mm3 (3.60-5.2) 08/08/19 09:08 Hgb 11.9 GM/dL (10.7-15.3) 08/08/19 09:08 Hct 37.5 % (32.4-45.2) 08/08/19 09:08 MCV 81.8 fl (80-96) 08/08/19 09:08 MCHC 31.7 g/dl (32.0-36.0) L 08/08/19 09:08 RDW 15.8 % (11.6-15.6) H 08/08/19 09:08 Plt Count 343 K/MM3 (134-434) 08/08/19 09:08 MPV 7.7 fl (7.5-11.1) 08/08/19 09:08 CMP Sodium 131 mmol/L (136-145) L 08/08/19 09:08 Potassium 3.8 mmol/L (3.5-5.1) 08/08/19 09:08 Chloride 93 mmol/L (98-107) L 08/08/19 09:08 Carbon Dioxide 32 mmol/L (21-32) 08/08/19 09:08 Anion Gap 6 MMOL/L (8-16) L 08/08/19 09:08 BUN 22.8 mg/dL (7-18) H 08/08/19 09:08 Creatinine 1.0 mg/dL (0.55-1.3) 08/08/19 09:08 Random Glucose 230 mg/dL (74-106) H 08/08/19 09:08 Calcium 8.3 mg/dL (8.5-10.1) L 08/08/19 09:08 Total Bilirubin 1.0 mg/dL (0.2-1) 08/08/19 09:08 AST 84 U/L (15-37) H 08/08/19 09:08 ALT 289 U/L (13-61) H 08/08/19 09:08 Alkaline Phosphatase 97 U/L (45-117) 08/08/19 09:08 Total Protein 5.8 g/dl (6.4-8.2) L 08/08/19 09:08 Albumin 2.7 g/dl (3.4-5.0) L 08/08/19 09:08 CARDIAC ENZYMES Creatine Kinase 158 U/L (26-192) 07/28/19 14:20 Troponin I 0.04 ng/ml (0.00-0.05) 07/28/19 14:20 Current Medications Generic Name Dose Route Start Last Admin Trade Name Freq PRN Reason Stop Dose Admin Benzocaine/Menthol 1 each 08/03/19 20:15 08/03/19 22:06 Cepacol Lozenge - MM 1 each PRN PRN Administration SORE THROAT Carvedilol 3.125 mg 07/29/19 22:00 08/08/19 10:47 Coreg - PO 3.125 mg BID [facility] Administration Furosemide 40 mg 07/29/19 16:00 08/08/19 10:46 Lasix Injection - IVPUSH 40 mg DAILY [facility] Administration Glycerin 1 each 08/01/19 15:18 08/01/19 18:08 Glycerin Suppository Adult - [place] 1 each DAILY PRN Administration CONSTIPATION Heparin Sodium (Porcine) 5,000 unit 07/29/19 06:00 08/08/19 05:08 Heparin - SQ 5,000 unit TID [facility] Administration Pantoprazole Sodium 40 mg 08/02/19 10:00 08/08/19 10:47 Protonix - PO 40 mg DAILY [facility] Administration Paroxetine HCl 30 mg 08/02/19 10:00 08/08/19 10:47 Paxil - PO 30 mg DAILY [facility] Administration Polyethylene Glycol 17 gm 08/02/19 22:00 08/08/19 10:47 Miralax (For Daily Use) - PO 17 grams BID [facility] Administration Home Medications Medication Instructions Recorded RX: Aspirin [Children's Aspirin] 81 mg PO DAILY 07/28/19 RX: Zolpidem Tartrate 10 mg PO DAILY 07/28/19 Furosemide [Lasix] 40 mg PO DAILY 30 Days #30 tablet 08/08/19 RX: Carvedilol [Coreg -] 3.125 mg PO BID 30 Days #30 tablet 08/08/19 RX: Losartan Potassium 25 mg PO DAILY #30 tablet 08/08/19 RX: Paroxetine HCl [Paxil -] 30 mg PO DAILY 30 Days #30 tablet 08/08/19 Nuclear stress test: severe hypokineses (08/05/2019) ASSESSMENT AND PLAN: Patient is an 89yo female with Pmhx of HTN, HLP, Hysterectomy who presented with fever, chills x 1 -2 weeks and was found to have elevated LFts. # New onset acute systolic heart failure: with severely reduced EF. discussed with financial administrative assistant , will continue lasix po 40mg po daily. continue coreg , follow with dr. Lemus closely within a week period. patient has an EF is 20-25% , will need R/L heart cath at some point , hold MARCO/ARB for now. # Acute transaminitis: improving due to congestive hepatopathy improving ; cont supportive measures , FOLLOW WITH GI AN OUTPATIENT. - EBV is a previous infection. d/w ID , will cont to hold statin and fibrates, cont Paroxitine at a lower dose 30. # CHELSEA: probably prerenal azotemia ( cardio-renal sx ) , improved , continue diuresing, discussed with nephro to place her back to losartan 25mg po daily. # Acute hyponatremia: improving 127--> 131-->131 today , s/p sodium tablets x 2 doses as per nephro. # hypophos: repleted 2.8 now # H/o HTN: continue losartan reduced the dose to 25mg DVT PX : heparin SQ
--- NOTE | 2019-08-08 15:52 | DS ---
Physical Exam: SUBJECTIVE: Refer to attending note OBJECTIVE: Vital Signs Period Temp Pulse Resp BP Sys/Daniels Pulse Ox Last 24 Hr 98.4 F-98.9 F 80-82 18-20 121-130/61-79 100-100 PHYSICAL EXAM refer to attending note LABS Laboratory Results - last 24 hr 08/08/19 08/08/19 09:08 09:08 WBC 9.2 RBC 4.59 Hgb 11.9 Hct 37.5 MCV 81.8 MCH 25.9 MCHC 31.7 L RDW 15.8 H Plt Count 343 MPV 7.7 Absolute Neuts (auto) 7.0 Neutrophils % 76.3 Lymphocytes % 14.0 Monocytes % 6.1 Eosinophils % 3.2 D Basophils % 0.4 Nucleated RBC % 0 Sodium 131 L Potassium 3.8 Chloride 93 L Carbon Dioxide 32 Anion Gap 6 L BUN 22.8 H Creatinine 1.0 Est GFR (CKD-EPI)AfAm 58.25 Est GFR (CKD-EPI)NonAf 50.26 Random Glucose 230 H Calcium 8.3 L Phosphorus 2.8 Magnesium 1.9 Total Bilirubin 1.0 AST 84 H ALT 289 H Alkaline Phosphatase 97 Total Protein 5.8 L Albumin 2.7 L HOSPITAL COURSE: Ms. Fagan is an 89y/o female with HTN and HLD who presents with progressive shortness of breath and fatigue. Per daughter, the patient has become increasingly dyspneic on exertion over the last several months and especially in the last week prior to admission. Pt was found to have severe transaminitis. Leukocytosis, fever, and lactic acid were present on admission but resolve. MRI showed gallstones but not acute cholecystitis. Echo showed LVH with EF 20-25% and RV pressure 40-50 with severe TR. She was given IV Lasix with quick improvement in ARANA. She was started on carvedilol 3.125mg BID for systolic CHF. Transaminitis was likely from CHF and lab values improved daily. Pt was on Paroxetine 40mg prior to admission. Given possibility that SSRI could be causing transaminitis, pt's dose was decreased, not stopped suddenly, in order to avoid withdrawal. Of note, she denied abdominal pain throughout course. Acute hepatitis A was negative. Pt was also hyponatremic, and she was placed on water restriction and given sodium supplementation. She was discharged on PO Lasix and instructed to f/u for repeat labs in one week. Date of Admission:07/28/19 Date of Discharge: 08/08/19 Minutes to complete discharge: 35 Discharge Summary Problems reviewed: Yes Reason For Visit: TRANSAMINASEMIA,NEW ONSET OF CHF Current Active Problems Abnormal liver enzymes (Acute) Constipation (Acute) Hepatic congestion (Acute) Hepatitis (Acute) Hepatitis A antibody positive (Acute) Hyperlipidemia (Acute) Hypertension (Acute) Hyponatremia (Acute) New onset of congestive heart failure (Acute) Transaminitis (Acute) Condition: Stable - Instructions Diet, Activity, Other Instructions: YOUR VISIT: You were admitted to the hospital for shortness of breath. Tests done showed you have heart failure. You were given medicine for excess fluid. In addition, your liver enzymes were elevated likely secondary to this new onset heart failure, and they are now down-trending. You are stable to go home. MEDICATIONS: STOP the following: Losartan Lovastatin Fenofibrate Amoxicillin There is a DOSE CHANGE for Paroxetine. It is now 30mg once a day. START the following: Furosemide 40mg once a day Carvedilol 3.125mg twice a day FOLLOW UP: Dr. Hooks, primary care, in the next week. You will need your liver function tests repeated within one week. You will also be able to discuss your Paroxetine dose. Dr. Lemus, cardiology, in the next week. Dr. Madison, gastroenterology, in the next 2-4 weeks. OTHER INSTRUCTIONS: 1. Weigh yourself daily. 2. Monitor your fluid intake. Do not drink more than 1 liter per day. 3. Return to the emergency room if you start feeling weak again, have chest pain , shortness of breath, abdominal pain, nausea, or vomiting. Referrals: Rohit Hooks MD [Primary Care Provider] - 1 Week Suyapa Lemus MD [Staff Physician] - 1 Week Sophia Madison MD [Staff Physician] - 1 Month Disposition: HOME - Home Medications Comprehensive Discharge Medication List: Ambulatory Orders Aspirin [Children's Aspirin] 81 mg PO DAILY 07/28/19 Zolpidem Tartrate 10 mg PO DAILY 07/28/19 Carvedilol [Coreg -] 3.125 mg PO BID 30 Days #30 tablet 08/08/19 Furosemide [Lasix] 40 mg PO DAILY 30 Days #30 tablet 08/08/19 Losartan Potassium 25 mg PO DAILY #30 tablet 08/08/19 Paroxetine HCl [Paxil -] 30 mg PO DAILY 30 Days #30 tablet 08/08/19 This patient is new to me today: No Emergency Visit: Yes ED Registration Date: 07/28/19 Care time: The patient presented to the Emergency Department on the above date and was hospitalized for further evaluation of their emergent condition. Critical Care patient: No - Discharge Referral Referred to [facility] No ATTENDING PHYSICIAN STATEMENT I saw and evaluated the patient. I reviewed the resident's note and discussed the case with the resident. I agree with the resident's findings and plan as documented. SUBJECTIVE: OBJECTIVE: ASSESSMENT AND PLAN:
--- NOTE | 2019-08-08 16:22 | PN ---
Progress Note (short form) - Note Progress Note: s: no cp palps dizzy, sob Vital Signs Period Temp Pulse Resp BP Sys/Daniels Pulse Ox Last 24 Hr 98.4 F-98.9 F 80-82 18-20 121-130/61-79 100-100 nad no jvd rrr s1s2 no mrg cta bl nl ef aao3 trace le edema bl abd nt nd pos bs no jaundice diaphoresis Current Medications Benzocaine/Menthol (Cepacol Lozenge -) 1 each MM PRN PRN PRN Reason: SORE THROAT Last Admin: 08/03/19 22:06 Dose: 1 each Carvedilol (Coreg -) 3.125 mg PO BID [facility] Last Admin: 08/08/19 10:47 Dose: 3.125 mg Furosemide (Lasix Injection -) 40 mg IVPUSH DAILY [facility] Last Admin: 08/08/19 10:46 Dose: 40 mg Glycerin (Glycerin Suppository Adult -) 1 each FL DAILY PRN PRN Reason: CONSTIPATION Last Admin: 08/01/19 18:08 Dose: 1 each Heparin Sodium (Porcine) (Heparin -) 5,000 unit SQ TID [facility] Last Admin: 08/08/19 05:08 Dose: 5,000 unit Pantoprazole Sodium (Protonix -) 40 mg PO DAILY [facility] Last Admin: 08/08/19 10:47 Dose: 40 mg Paroxetine HCl (Paxil -) 30 mg PO DAILY [facility] Last Admin: 08/08/19 10:47 Dose: 30 mg Polyethylene Glycol (Miralax (For Daily Use) -) 17 gm PO BID [facility] Last Admin: 08/08/19 10:47 Dose: 17 grams ecg: sr lbbb cxr: clear lungs echo 07/2019: lvef 20-25, global hk, nl rv, sev tr, mild lae, mod mr, rvsp 40- 50 mibi 07/2019: no ischemia a/p: 89 f hx hld, ckd (bl 1.2), here with sob. sob, acute systolic chf: -no known hx hrt dz but echo here showing reduced lvef and sev tr -seems that pt has component of vol overload with hepatic congestion causing elevated lfts (also possible from hep A) -has been getting lasix 40 iv qd with improvement in cr and sob, LFTs continue to decrease, edema improving -monitor daily wts, lytes - change lasix to 40 mg PO daily -cont coreg for chf regimen. 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
[2019-08-08 18:03] VITALS: BP 125/78; PULSE 89; TEMP 97.4
== END 2019-08-08 19:17 | disposition home or self-care (01) | DRG 441 ==
LOC: JER 11:21 → JERBED 18:50 → J7W 20:35
PROVIDERS: ADMIT Internal Medicine; ATTEND Internal Medicine
DX: K75.89 Other specified inflammatory liver diseases (principal); I50.21 Acute systolic (congestive) heart failure; E87.2 Acidosis; N17.9 Acute kidney failure, unspecified; R65.10 Systemic inflammatory response syndrome (SIRS) of non-infectious origin without acute organ dysfunction; E87.1 Hypo-osmolality and hyponatremia; B17.9 Acute viral hepatitis, unspecified; S36.118A Other injury of liver, initial encounter; I11.0 Hypertensive heart disease with heart failure; E78.5 Hyperlipidemia, unspecified; F32.9 Major depressive disorder, single episode, unspecified; I44.7 Left bundle-branch block, unspecified; R00.0 Tachycardia, unspecified; R50.9 Fever, unspecified; R74.0 Nonspecific elevation of levels of transaminase and lactic acid dehydrogenase [LDH]; K80.20 Calculus of gallbladder without cholecystitis without obstruction; K59.00 Constipation, unspecified; K76.1 Chronic passive congestion of liver; R94.31 Abnormal electrocardiogram [ECG] [EKG]; R74.8 Abnormal levels of other serum enzymes; T43.225A Adverse effect of selective serotonin reuptake inhibitors, initial encounter; R76.8 Other specified abnormal immunological findings in serum; I07.1 Rheumatic tricuspid insufficiency; E83.39 Other disorders of phosphorus metabolism
CPT/HCPCS: 36415; 71045-TC-FY; 74183-TC; 76700-TC; 78452-TC; 80048; 80053; 80074; 80076; 80307; 81003; 82105; 82140; 82436; 82533; 82550; 82553; 82728; 83516; 83540; 83550; 83605; 83615; 83625; 83690; 83735; 83880; 83930; 83935; 84100; 84133; 84300; 84443; 84484; 85025; 85027; 85610; 85730; 86038; 86644; 86645; 86664; 86665; 86704; 86706; 86707; 86708; 86709; 87040; 87086; 87340; 87633; 87799; 93005; 93010; 93017; 93306-TC; 93970-TC; 93976; 97116-GP; 97161-GP; 99284-25; A9502; C1887; J1644; J2785; J7030